=== PATIENT | female | born 1935 | race Caucasian/White ===

== ENCOUNTER 2017-11-03 11:08 | Inpatient (IN) | payer MEDICARE, OTHER ==
--- NOTE | 2017-11-03 11:28 | ED Physician Documentation ---
History of Present Illness - Stated complaint Stated Complaint: SOA - Chief complaint Chief Complaint: Resp - Additonal information Additional information: hx from pt and family fairly vague hx she thinks she has COPD, maybe pulm fibrosis on dulera she has been soa for years, more so last 2 months, recently txed for bronchitis with keflex no fever no cough no chest pain he leg edema is not new and better than normal using her dulera more freq s relief Review of Systems Constitutional: denies: Fever, Chills Throat: denies: Sore throat Cardiac: denies: Chest pain / pressure Respiratory: reports: Dyspnea GI: denies: Abdominal Pain Musculoskeletal: reports: Extremity swelling Endocrine: denies: Easy bruising / bleeding Immunocompromised: denies: Immunocompromised PD PAST MEDICAL HISTORY - Present Medications Home Medications: Ambulatory Orders Medication Instructions Recorded Confirmed Furosemide 40 mg PO DAILY 11/03/17 11/03/17 Meloxicam 7.5 mg PO BID 11/03/17 11/03/17 Metoprolol Succinate 25 mg PO BID 11/03/17 11/03/17 Mometasone/Formoterol [Dulera 200 2 puffs INH BID 11/03/17 11/03/17 Mcg/5 Mcg Inhaler] Rosuvastatin Calcium 10 mg PO 2100 11/03/17 11/03/17 amLODIPine [Norvasc] 10 mg PO DAILY 11/03/17 11/03/17 - Allergies Allergies/Adverse Reactions: Allergies Allergy/AdvReac Type Severity Reaction Status Date / Time No Known Drug Allergies Allergy Verified 11/03/17 11:24 PD ED PE NORMAL - Vitals Vital signs reviewed: Yes (hypoxic) - General General: Alert and oriented X 3 - Cardiac Cardiac: RRR - Respiratory Respiratory: No respiratory distress, Other (coarse bilaterally) - Derm Derm: Normal color - Extremities Extremities: Other (hoa mild edema) Results - Vitals Vitals: Vital Signs - 24 hr 11/03/17 11/03/17 11/03/17 11:19 11:54 12:16 Temperature 36 C L Heart Rate 89 93 82 Respiratory 26 H 28 H 24 Rate Blood Pressure 154/86 H 154/86 H O2 Saturation 68 L 94 11/03/17 13:06 Temperature Heart Rate 101 H Respiratory 22 Rate Blood Pressure 164/80 H O2 Saturation 87 L Oxygen O2 Source Nasal cannula Oxygen Flow Rate 6 - EKG (time done) 1123 Rate: Rate (enter#) (94) Rhythm: NSR QRS: Poor R wave progression Ischemia: Q waves (inf and anterior), Non specific changes - Labs Labs: Laboratory Tests 11/03/17 11/03/17 11/03/17 11:46 11:46 11:46 WBC 14.7 H RBC 5.55 H Hgb 16.4 H Hct 49.1 H MCV 88.4 MCH 29.6 MCHC 33.4 RDW 16.0 H Plt Count 194 MPV 8.0 Neut # 12.5 H Lymph # 0.8 L [place] # 1.2 H Eos # 0.1 Baso # 0.1 Absolute Nucleated RBC 0.01 Nucleated RBC % 0.1 Sodium 137 Potassium 4.3 Chloride 104 Carbon Dioxide 20 L Anion Gap 13.0 BUN 17 Creatinine 1.2 H Estimated GFR (MDRD) 43 L Glucose 99 Calcium 8.9 Total Bilirubin 1.0 AST 19 ALT 18 Alkaline Phosphatase 56 Troponin I < 0.04 B-Natriuretic Peptide Total Protein 7.5 Albumin 3.7 Globulin 3.8 Albumin/Globulin Ratio 1.0 Lipase 14 L 11/03/17 12:15 WBC RBC Hgb Hct MCV MCH MCHC RDW Plt Count MPV Neut # Lymph # [place] # Eos # Baso # Absolute Nucleated RBC Nucleated RBC % Sodium Potassium Chloride Carbon Dioxide Anion Gap BUN Creatinine Estimated GFR (MDRD) Glucose Calcium Total Bilirubin AST ALT Alkaline Phosphatase Troponin I B-Natriuretic Peptide 161 H Total Protein Albumin Globulin Albumin/Globulin Ratio Lipase - Rads (name of study) CXR Radiology: See rad report (chronic lung dz / fibrosis) PD MEDICAL DECISION MAKING - ED course ED course: pt vague about her Pmhx so requested records from [facility]D ioffice at 1130 Am - still waiting for records at 1 PM in any case pt is profoundly hypoxic despite nebs and so will need admit CXR shows fibrosis no pna, minimal BNP PE could be a consideration but GFR too low for CTA and CXR too abn at baseline for VQ scan - perhaps can get echo looking for right heart strain addendum - received records from [facility]D after admit - Pmhx COPD, sys HTN, arthropathy, abd aorta arterial thrombosis, nicotine dependence, pulm fibrosis, renal insuff, vit D def and her meds are crestor, leoxicam, amlodopine, lasix, dulera and metoprolol Departure - Departure Disposition: 66 [facility] DC/Xfer Clinical Impression: Hypoxia Condition: Fair Discharge Date/Time: 11/03/17 14:17
[2017-11-03] MEDS ORDERED: methylPREDNISolone SUCCINATE 125 MG/2 ML VIAL IVP STA (11:33)
[2017-11-03] MEDS ORDERED: ALBUTEROL NEB 2.5 MG/3 ML INH STA (11:33)
[2017-11-03 11:54] LABS: BASOPHILS # (AUTO) 0.1 10^3/uL (0.0-0.1); BASOPHILS % (AUTO) 0.6 %; EOSINOPHILS # (AUTO) 0.1 10^3/uL (0.0-0.7); EOSINOPHILS % (AUTO) 0.8 %; HGB - HEMOGLOBIN 16.4 g/dL (12.0-16.0); LYMPHOCYTES # (AUTO) 0.8 10^3/uL (1.5-3.5); LYMPHOCYTES % (AUTO) 5.1 %; MEAN CORPUSCULAR HEMOGLOBIN 29.6 pg (27.0-31.0); MEAN CORPUSCULAR HGB CONC 33.4 g/dL (32.0-36.0); MEAN CORPUSCULAR VOLUME 88.4 fL (81.0-99.0); MONOCYTES # (AUTO) 1.2 10^3/uL (0.0-1.0); MONOCYTES % (AUTO) 8.2 %; NEUTROPHILS # (AUTO) 12.5 10^3/uL (1.5-6.6); NEUTROPHILS % (AUTO) 85.3 %; PLT - PLATELET COUNT 194 10^3/uL (130-450); RED BLOOD COUNT 5.55 10^6/uL (4.20-5.40); WHITE BLOOD COUNT 14.7 x10^3/uL (4.8-10.8)
--- NOTE | 2017-11-03 11:57 | XRAY Report ---
EXAM: CHEST RADIOGRAPHY EXAM DATE: 11/03/2017 11:37 AM. CLINICAL HISTORY: Altered mental status. COMPARISON: 01/25/2016. TECHNIQUE: 1 view. FINDINGS: Lungs/Pleura: Low lung volumes with chronic diffuse interstitial prominence. Similar mildly elevated right hemidiaphragm compatible with eventration. No segmental consolidation or obvious vascular conge stion. No pneumothorax or pleural effusion. Mediastinum: Grossly stable tortuous calcified aorta and borderline heart size. Other: No acute fracture evident. IMPRESSION: 1. Consistent with chronic lung disease/fibrosis. 2. Stable borderline heart size and senescent aorta. [facility] Referring Provider Line: [phone] SITE ID: [id number]
[2017-11-03 12:06] LABS: ALBUMIN 3.7 g/dL (3.2-5.5); CALCIUM 8.9 mg/dL (8.5-10.3); CREATININE 1.2 mg/dL (0.4-1.0); TOTAL PROTEIN 7.5 g/dL (6.7-8.2)
[2017-11-03] MEDS ORDERED: PROCHLORPERAZINE 10 MG/2 ML VIAL IVP PRN (13:16)
[2017-11-03] MEDS ORDERED: oxyCODONE 5 MG TABLET PO PRN (13:16)
[2017-11-03] MEDS ORDERED: TEMAZEPAM 15 MG CAPSULE PO PRN (13:16)
[2017-11-03] MEDS ORDERED: SODIUM CHLORIDE FLUSH 0.9% 10 ML SYRINGE IVP PRN (13:16)
--- NOTE | 2017-11-03 14:05 | HISTORY & PHYSICAL EXAMINATION ---
Chief Complaint - Chief Complaint Chief Complaint: Shortness of breath History of Present Illness - Admitted From Admitted From:: Home - History Obtained From Records Reviewed: yes History obtained from: patient, Dr. Dobbins Exam Limitations: patient has poor short and skilled nursing memory - History of Present Illness HPI Comment/Other: Mrs. Claribel Kothari is a very pleasant 82-year-old female with a history of COPD who has been having increasing shortness of breath over the last several months. This is worsened especially over the last week until today she felt like she needed to come into the emergency department because of difficulty breathing. Upon presentation in the emergency department at [facility] she is found to have an oxygen saturation of 69% on room air. She was given multiple doses of bronchodilators and steroids as well as supplemental oxygen however at this time she is still oxygen dependent and so she will be admitted to the hospital. History - Past Medical History Cardiovascular: reports: Hypertension, High cholesterol Respiratory: reports: COPD, Shortness of breath - Past Surgical History /[employer]: reports: Hysterectomy - Family & Social History Family History: Mother: , COPD/Emphysema, Father: , Alzheimer's Disease, Sister: Living arrangement: At home Living Situation: With family Social History Notes: The patient's son and his family live with the patient in her home. - Substance History Use: Uses substance without health or social issues: NONE Abuse: Recurrent use of substance despite neg consequences: NONE Dependence: Experiences withdrawal or developed tolerances: NONE Tobacco Details: Cigarettes, Other (The patient admits to smoking "3 puffs from a cigarette 2 times a day") - POLST Patient has POLST: No POLST Status: DNR (Patient wishes to do advanced care planning when her daughter arrives later today.) Meds/Allgy - Home Medications Home Medications: Ambulatory Orders Medication Instructions Recorded Confirmed Furosemide 40 mg PO DAILY 11/03/17 11/03/17 Meloxicam 7.5 mg PO BID 11/03/17 11/03/17 Metoprolol Succinate 25 mg PO BID 11/03/17 11/03/17 Mometasone/Formoterol [Dulera 200 2 puffs INH BID 11/03/17 11/03/17 Mcg/5 Mcg Inhaler] Rosuvastatin Calcium 10 mg PO 2100 11/03/17 11/03/17 amLODIPine [Norvasc] 10 mg PO DAILY 11/03/17 11/03/17 - Allergies Allergies/Adverse Reactions: Allergies Allergy/AdvReac Type Severity Reaction Status Date / Time No Known Drug Allergies Allergy Verified 11/03/17 11:24 Review of Systems - Constitutional Constitutional: reports: Fatigue, Weakness. denies: Fever, Chills, Night sweats - Eyes Eyes: denies: Pain, Irritation, Blurred vision, Dipolpia - Ears, Nose & Throat Ears, Nose & Throat: denies: Ear pain, Hearing loss, Tinnitus, Vertigo, Nasal discharge, Nosebleeds - Cardiovascular Cariovascular: denies: Palpitations, Chest pain, Edema, Syncope - Respiratory Respiratory: reports: SOB at rest, SOB with exertion. denies: Wheezing, Hemoptysis - Gastrointestinal Gastrointestinal: denies: Abdominal pain, Abdominal distention, Constipation, Diarrhea, Rectal bleeding - Genitourinary Genitourinary: denies: Dysuria, Frequency, Urgency, Hematuria - Musculoskeletal Musculoskeletal: reports: Stiffness. denies: Muscle pain, Gout, Joint swelling - Integumentary Integumentary: denies: Rash, Pruritis, Lesions, Pigment changes - Neurological Neurological: reports: Memory problems. denies: General weakness, Focal weakness, Headache, Dizziness, Seizures, Slurred speech - Psychiatric Psychiatric: denies: Depression, Anxiety, Suicidal, Hallucinations - Endocrine Endocrine: denies: Polyuria, Polydypsia, Polyphagia - Hematologic/Lymphatic Hematologic/Lymphatic: denies: Anemia, Bruising, Petechiae, Lymphadenopathy - All Other Systems All Other Systems: reports: Reviewed and negative Exam - Vital Signs Reviewed Vital Signs: Yes Vital Signs: Vital Signs x48h Temp Pulse Resp BP Pulse Ox 11/03/17 13:32 92 11/03/17 13:06 101 H 22 164/80 H 87 L 11/03/17 12:16 82 24 11/03/17 11:54 93 28 H 154/86 H 94 11/03/17 11:19 36 C L 89 26 H 154/86 H 68 L - Physical Exam General Appearance: positive: No acute distress, Alert Eyes Bilateral: positive: Normal inspection, PERRL, EOMI, No lid inflammation, Conjunctivae nml, No scleral icterus ENT: positive: ENT inspection nml, Pharynx nml, No signs of dehydration Neck: positive: Nml inspection, Thyroid nml, No JVD, Trachea midline. negative : Thyromegaly Respiratory: positive: Chest non-tender, No respiratory distress, Rales, Other ( lung sounds diminished all dodd). negative: Wheezes, Rhonchi Cardiovascular: positive: Regular rate & rhythm, No murmur, No gallop Peripheral Pulses: positive: 1+ Abdomen: positive: Non-tender, No organomegaly, Nml bowel sounds, No distention. negative: Guarding, Rebound Back: positive: Nml inspection. negative: CVA tenderness (R), CVA tenderness (L ) Skin: positive: Color nml, No rash, Warm, Dry. negative: Cyanosis Extremities: positive: Non-tender, Full ROM, Nml appearance, No pedal edema Neurologic/Psychiatric: positive: Oriented x3, CN's nml (2-12), Motor nml, Sensation nml, Mood/affect nml. negative: Facial droop, Slurred/abnml speech Conclusion/Plan - Problem List (1) Acute exacerbation of chronic obstructive pulmonary disease (COPD) Conclusion/Plan: The patient is hypoxic and oxygen dependent at this time. She typically does not wear oxygen at home. We will admit her to the medical floor and start her on Levaquin, prednisone, DuoNeb, and supplemental oxygen. We will restart her home medications, and check the last 2 in the series of troponins as well as a BNP. (2) History of congestive heart failure Conclusion/Plan: The patient the patient takes Lasix 40 mg daily at home. We will continue while here in the hospital. (3) Hypertension Conclusion/Plan: We will continue the patient on her amlodipine, metoprolol, and furosemide. Blood pressure well-managed at this time. Qualifiers: Hypertension type: essential hypertension Qualified Code(s): I10 - Essential (primary) hypertension (4) Dyslipidemia Conclusion/Plan: We will continue the patient on her rosuvastatin. - Lab Results Fish Bones: 11/03/17 11:46 11/03/17 11:46 - Diagnostic Imaging Results Diagnostic Imaging Results: positive: Final report reviewed Diagnostic Imaging Results Comments: EXAM: CHEST RADIOGRAPHY EXAM DATE: 11/03/2017 11:37 AM. CLINICAL HISTORY: Altered mental status. COMPARISON: 01/25/2016. TECHNIQUE: 1 view. FINDINGS: Lungs/Pleura: Low lung volumes with chronic diffuse interstitial prominence. Similar mildly elevated right hemidiaphragm compatible with eventration. No segmental consolidation or obvious vascular congestion. No pneumothorax or pleural effusion. Mediastinum: Grossly stable tortuous calcified aorta and borderline heart size. Other: No acute fracture evident. IMPRESSION: 1. Consistent with chronic lung disease/fibrosis. 2. Stable borderline heart size and senescent aorta. - EKG Results EKG Interpreted Independently: Yes EKG Comparison: No prior EKG Core Measures - Anticipated LOS I expect patient to be DC'd or transferred within 96 hours.: Yes - DVT/VTE - Prophylaxis VTE/DVT Device ordered at admit?: Yes
[2017-11-03] MEDS: D5.45NS W/20 MEQ KCL 1,000 ML IV SCH (14:23)
[2017-11-03] MEDS: SODIUM CHLORIDE FLUSH 0.9% 10 ML SYRINGE IVP SCH ×2 (14:23→20:54)
[2017-11-03] MEDS: levoFLOXacin 750 MG/150 ML 750 MG/150 ML BAG IV SCH (15:50)
[2017-11-03] MEDS: MELOXICAM 7.5 MG TABLET PO SCH (20:53)
[2017-11-03] MEDS: ATORVASTATIN 10 MG TABLET PO SCH (20:53)
[2017-11-03] MEDS: METOPROLOL SUCCINATE 25 MG TABLET PO SCH (20:54)
[2017-11-03] MEDS: DULERA INH SCH (20:54)
[2017-11-04] MEDS: D5.45NS W/20 MEQ KCL 1,000 ML IV SCH ×2 (02:06→13:32)
[2017-11-04] MEDS: SODIUM CHLORIDE FLUSH 0.9% 10 ML SYRINGE IVP SCH ×3 (05:34→21:40)
[2017-11-04 05:58] LABS: HGB - HEMOGLOBIN 14.2 g/dL (12.0-16.0); MEAN CORPUSCULAR HEMOGLOBIN 28.7 pg (27.0-31.0); MEAN CORPUSCULAR HGB CONC 32.3 g/dL (32.0-36.0); RED BLOOD COUNT 4.94 10^6/uL (4.20-5.40); WHITE BLOOD COUNT 11.1 x10^3/uL (4.8-10.8)
[2017-11-04 06:06] LABS: CALCIUM 8.5 mg/dL (8.5-10.3); CREATININE 1.1 mg/dL (0.4-1.0)
[2017-11-04] MEDS: predniSONE 20 MG TABLET PO SCH (08:55)
[2017-11-04] MEDS: POLYETHYLENE GLYCOL 3350 17 GM PACKET PO SCH (08:55)
[2017-11-04] MEDS: amLODIPine 5 MG TABLET PO SCH (08:56)
[2017-11-04] MEDS: METOPROLOL SUCCINATE 25 MG TABLET PO SCH (08:57)
[2017-11-04] MEDS: DULERA INH SCH ×2 (08:58→21:59)
[2017-11-04] MEDS ORDERED: FUROSEMIDE 20 MG TABLET PO SCH (09:00)
[2017-11-04] MEDS: MELOXICAM 7.5 MG TABLET PO SCH ×2 (09:10→21:04)
[2017-11-04] MEDS: IPRATROPIUM/ALBUTEROL 3 ML NEB INH PRN ×2 (10:41→15:27)
--- NOTE | 2017-11-04 10:57 | PROVIDER PROGRESS NOTE ---
Subjective - Prog Note Date Prog Note Date: 11/04/17 Prog Note Time: 09:00 - Subjective Pt reports feeling: Improved (Patient says she feels a little bit better and slept well last night. She still very short of breath. She denies any pain or new problems.She ate her breakfast today but has not yet moved her bowels.) Current Medications - Current Medications Current Medications: Amlodipine, atorvastatin, D5 half-normal saline, Lasix, DuoNeb, Levaquin, Mobic , metoprolol, oxycodone, polyethylene glycol, prednisone, Compazine, sodium chloride, temazepam Objective - Vital Signs/Intake & Output Reviewed Vital Signs: Yes Vital Signs: Vital Signs x48h Temp Pulse Pulse Resp BP Pulse Ox 11/04/17 10:48 84 20 11/04/17 08:00 36.6 C 77 34 H 152/63 H 93 Intake & Output: Intake & Output 11/01/17 11/02/17 11/03/17 11/04/17 23:59 23:59 23:59 23:59 Intake Total 710 1486.667 Output Total 225 200 Balance 485 1286.667 - Objective General Appearance: positive: No acute distress, Alert Eyes Bilateral: positive: Normal inspection, PERRL, EOMI, No lid inflammation, Conjunctivae nml, No scleral icterus ENT: positive: ENT inspection nml, Pharynx nml, No signs of dehydration Neck: positive: Nml inspection, Thyroid nml, No JVD, Trachea midline. negative : Thyromegaly Respiratory: positive: Chest non-tender, No respiratory distress, Breath sounds nml. negative: Wheezes, Rales, Rhonchi Cardiovascular: positive: Regular rate & rhythm, No murmur, No gallop Abdomen: positive: Non-tender, No organomegaly, Nml bowel sounds, No distention. negative: Guarding, Rebound Back: positive: Nml inspection. negative: CVA tenderness (R), CVA tenderness (L ) Skin: positive: No rash, Warm, Dry, Pallor. negative: Cyanosis Extremities: positive: Non-tender, Full ROM, Nml appearance, No pedal edema Neurologic/Psychiatric: positive: Oriented x3, CN's nml (2-12), Motor nml, Sensation nml, Mood/affect nml - Lab Results Fish Bones: 02/20/18 05:45 11/04/17 05:45 Other Labs: Lab Results x24hrs 11/04/17 11/04/17 11/04/17 Range/Units 05:45 05:45 05:45 WBC 11.1 H (4.8-10.8) x10^3/uL RBC 4.94 (4.20-5.40) 10^6/uL Hgb 14.2 (12.0-16.0) g/dL Hct 44.0 (37.0-47.0) % MCV 89.0 (81.0-99.0) fL MCH 28.7 (27.0-31.0) pg MCHC 32.3 (32.0-36.0) g/dL RDW 16.0 H (12.0-15.0) % Plt Count 176 (130-450) 10^3/uL MPV 8.0 (7.9-10.8) fL Sodium 135 (135-145) mmol/L Potassium 4.8 (3.5-5.0) mmol/L Chloride 108 (101-111) mmol/L Carbon Dioxide 20 L (21-32) mmol/L Anion Gap 7.0 (6-13) BUN 21 H (6-20) mg/dL Creatinine 1.1 H (0.4-1.0) mg/dL Estimated GFR (MDRD) 48 L (>89) Glucose 153 H (70-100) mg/dL Calcium 8.5 (8.5-10.3) mg/dL Troponin I (<0.49) ng/mL B-Natriuretic Peptide 187 H (5-100) pg/mL 11/03/17 11/03/17 Range/Units 23:46 17:45 WBC (4.8-10.8) x10^3/uL RBC (4.20-5.40) 10^6/uL Hgb (12.0-16.0) g/dL Hct (37.0-47.0) % MCV (81.0-99.0) fL MCH (27.0-31.0) pg MCHC (32.0-36.0) g/dL RDW (12.0-15.0) % Plt Count (130-450) 10^3/uL MPV (7.9-10.8) fL Sodium (135-145) mmol/L Potassium (3.5-5.0) mmol/L Chloride (101-111) mmol/L Carbon Dioxide (21-32) mmol/L Anion Gap (6-13) BUN (6-20) mg/dL Creatinine (0.4-1.0) mg/dL Estimated GFR (MDRD) (>89) Glucose (70-100) mg/dL Calcium (8.5-10.3) mg/dL Troponin I < 0.04 < 0.04 (<0.49) ng/mL B-Natriuretic Peptide (5-100) pg/mL Assessment/Plan - Problem List (1) Acute exacerbation of chronic obstructive pulmonary disease (COPD) Impression: The patient's oxygen saturation has increased from yesterday however she still is oxygen dependent at this time. We will continue with the bronchodilators and steroids as well as supplemental oxygen. The patient may need to go home on supplemental oxygen. (2) History of congestive heart failure Impression: The patient's BNP is very slightly elevated. We will continue to monitor. Troponin I was negative 3. (3) Hypertension Impression: The patient's blood pressure is elevated despite being on amlodipine, Lasix, and metoprolol. I will add lisinopril. Qualifiers: Hypertension type: essential hypertension Qualified Code(s): I10 - Essential (primary) hypertension (4) Dyslipidemia Impression: Continue atorvastatin
[2017-11-04] MEDS ORDERED: METOPROLOL SUCCINATE 25 MG TABLET PO SCH (11:00)
[2017-11-04] MEDS ORDERED: LISINOPRIL 20 MG TABLET PO SCH (12:00)
[2017-11-04] MEDS: levoFLOXacin 750 MG/150 ML 750 MG/150 ML BAG IV SCH (15:33)
[2017-11-04] MEDS: guaiFENesin 600 MG TABLET PO SCH ×2 (15:55→21:04)
--- NOTE | 2017-11-04 17:35 | CONSULTATION NOTE ---
Palliative Care Consultation - Referral Referring Provider: Dr. Annie Victoria Time of Visit: [id number] Referral setting: Hospitalized patient Referral Reason: Advanced COPD/Goals of Care - Information Sources Records reviewed: Previous records reviewed History/Review of Systems obtained from: Patient, Family (spoke at length with daughter Jamilah Cordero to round out ROS) Exam limitations: Clinical condition (patient with STM deficits) - History of Present Illness Brief History of Present Illness: This is an 82-year-old woman with a history of advanced COPD, who presented on with an acute exacerbation of her chronic obstructive pulmonary disease and was admitted to [facility]. She has not had any previous hospitalizations, has been managed on Dulera, but does report a history of severe and progressive shortness of breath. Patient herself has difficulty quantifying or remembering , her ongoing decline. I did review with her daughter Jamilah, she has had increasing cognitive decline, which is exacerbated with the of her daughter in July 2017. Her functional status is limited at baseline, she has long-term been fairly an active, but wheelchair bound other than transfers and short distances to the bathroom, for about 5 years, but this is become more severe in the last several months. They had attempted to set up hospital bed and equipment, but she prefers to sit on the [place] and upright. She is quite anxious about "not being able to breathe", presents today with a rolling cough scattered rhonchi and fine crackles bilaterally as well as diminished breath sounds throughout. Does not carry a diagnosis of congestive heart failure, but presents with elevated BNP. She does not have any pulmonary function tests, is not been managed by a specialist, she is seeing her primary care physician Dr. Chaudhary for a couple decades. He does perceive herself as becoming more dependent, very much wants to return back home, she is a very supportive family but at this point in time is home by herself for several hours. She has not been oxygen dependent up to this episode, but very limited by her disease process Medical/Surgical History - Past Medical History Cardiovascular: reports: Hypertension, High cholesterol Respiratory: reports: COPD, Shortness of breath Neuro: reports: None, Other (increased neurocognitive decline) GI: reports: Hemorrhoids : reports: Incontinence HEENT: reports: Chronic vision loss Psych: reports: Depression, Anxiety Musculoskeletal: reports: Rheumatoid arthritis, Fatigue, Chronic back pain Derm: reports: None MRSA Hx?: No Other Past Medical History: rhuemathoid arthritis; "weak bladder and weak kidneys" - 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 Her daughter Jamilah checks on her at least daily, but patient is alone for several hours. She recently lost her daughter, who is 52 and her youngest, about 2 months ago. She had 7 children total. Her daughter Jamilah and son Liu are whom she defaults to for decision making) Family History - Family History Family History: Mother: (daughter 2 months ago), COPD/Emphysema, Father: , Alzheimer's Disease ( at 79), COPD/Emphysema, Sister: , Other family: Medications/Allergies - Medications Active Medication List: Active Medications Albuterol/Ipratropium (Duoneb) 3 ml INH Q4HR PRN PRN Reason: Wheezing Last Admin: 11/04/17 15:27 Dose: 3 ml Amlodipine Besylate (Norvasc) 10 mg PO DAILY [facility] Last Admin: 11/04/17 08:56 Dose: 10 mg Atorvastatin Calcium (Lipitor) 20 mg PO 2100 [facility] Last Admin: 11/03/17 20:53 Dose: 20 mg Furosemide (Lasix) 40 mg PO DAILY [facility] Guaifenesin (Mucinex) 600 mg PO BID [facility] Last Admin: 11/04/17 15:55 Dose: 600 mg Potassium Chloride/Dextrose/Sod Cl (D5.45ns W/20 Meq Kcl) 1,000 mls @ 100 mls/ hr IV .Q10H [facility] Last Admin: 11/04/17 13:32 Dose: 100 mls/hr Levofloxacin (Levaquin 750 Mg/150 Ml) 750 mg in 150 mls @ 100 mls/hr IV Q24H [facility] Last Infusion: 11/04/17 17:06 Dose: Infused Lisinopril (Zestril) 20 mg PO DAILY [facility] Last Admin: 11/04/17 13:33 Dose: 20 mg Meloxicam (Mobic) 7.5 mg PO BID [facility] Last Admin: 11/04/17 09:10 Dose: 7.5 mg Metoprolol Succinate (Toprol Xl) 50 mg PO BID [facility] Oxycodone HCl (Roxicodone) 5 mg PO Q4HR PRN PRN Reason: Pain 5 to 7 Dulera 2 each INH BID [facility] Last Admin: 11/04/17 08:58 Dose: 2 each Polyethylene Glycol (Miralax) 17 gm PO DAILY [facility] Last Admin: 11/04/17 08:55 Dose: 17 gm Prednisone (Deltasone) 40 mg PO DAILY [facility] Last Admin: 11/04/17 08:55 Dose: 40 mg Prochlorperazine Edisylate (Compazine Inj) 10 mg IVP Q6HR PRN PRN Reason: Nausea / Vomiting Sodium Chloride (Normal Saline Flush 0.9%) 10 ml IVP PRN PRN PRN Reason: NEEDED PER PROVIDER ORDERS Sodium Chloride (Normal Saline Flush 0.9%) 10 ml IVP Q8HR [facility] Last Admin: 11/04/17 13:36 Dose: Not Given Temazepam (Restoril) 15 mg PO QPM PRN PRN Reason: Insomnia Last Admin: 11/04/17 01:19 Dose: 15 mg Furosemide 40 mg PO DAILY 11/03/17 Meloxicam 7.5 mg PO BID 11/03/17 Metoprolol Succinate 25 mg PO BID 11/03/17 Mometasone/Formoterol [Dulera 200 Mcg/5 Mcg Inhaler] 2 puffs INH BID 11/03/17 Rosuvastatin Calcium 10 mg PO 2100 11/03/17 amLODIPine [Norvasc] 10 mg PO DAILY 11/03/17 - Allergies Allergies/Adverse Reactions: Allergies Allergy/AdvReac Type Severity Reaction Status Date / Time No Known Drug Allergies Allergy Verified 11/03/17 11:24 Review of Systems - Constitutional Constitutional: reports: Fatigue, Malaise, Weakness - Eyes Eyes: reports: Vision loss, Corrective lenses - Ears, Nose & Throat Ears, Nose & Throat: reports: Hearing loss, Nasal congestion, Dry mouth - Cardiovascular Cardiovascular: reports: Edema (history of LE edema), Exertional dyspnea, Decr. exercise tolerance - Respiratory Respiratory: reports: Cough, Sputum production, Wheezing, SOB at rest, SOB with exertion - Gastrointestinal Gastrointestinal: reports: Early satiety. denies: Constipation, Nausea, Reflux/ heartburn - Genitourinary Genitourinary: reports: Incontinence - Musculoskeletal Musculoskeletal: reports: Back pain, Stiffness, Limited range of motion, Muscle weakness (has been limited as far as activity for over 20 years; attributed to arthritis;wheelchair bound for about 5 years; and housebound/"bedbound" for several months now. Amb with great effort to BR one time a day) - Integumentary Integumentary: reports: Dryness, Other (rarely bathes; bedbath secondary to dyspnea/weakness) - Neurological Neurological: reports: General weakness, Memory problems (daughter has noted cognitive decline the last several months;) - Psychiatric Psychiatric: reports: Depression, Anxiety (distressed at breathlessness; increases anxiety) - Hematologic/Lymphatic Hematologic/Lymphatic: reports: Recurrent infections (recently treated for bronchitis) - All Other Systems All Other Systems: reports: Reviewed and negative Physical Exam - Vital Signs Vital Signs: Vital Signs x48h Temp Pulse Pulse Pulse Pulse Resp BP 11/04/17 16:15 36.5 C 75 15 11/04/17 15:28 76 22 11/04/17 13:55 75 73 117/50 L 11/04/17 13:36 11/04/17 10:48 84 20 BP BP Pulse Ox 11/04/17 16:15 132/60 H 96 11/04/17 15:28 11/04/17 13:55 132/46 H 11/04/17 13:36 134/62 H 11/04/17 10:48 - Physical Exam General Appearance: positive: Moderate distress, Anxious (patient about ready to receive treatment on arrival;) Eyes Bilateral: positive: Conjunctivae nml, No scleral icterus ENT: positive: No signs of dehydration Neck: positive: Trachea midline, Stiff neck Cardiovascular: positive: Regular rate & rhythm, Tachycardia, Systolic murmur Respiratory: positive: Other (scattered rhonchi; crackles in bases; exp. wheezed ; some relief after neb but still baseline feeling SOB; admits this increases her anxiety; worse compared to her baseline but doesn recall had been worsening over last several weeks. Using some accessory muscles) Abdomen: positive: Soft, Nml bowel sounds Skin: positive: Pallor, Bruising (upper extremities with bruising from "sticks") Extremities: positive: No pedal edema, Other (laying in bed; not observed) Neurologic/Psychiatric: positive: Disoriented to time, Weakness, Depressed mood/ affect Palliative Care - POLST Patient has POLST: No Pain: Pain unchanged, Location (reports mid back/lumbar region; does not use medication other than meloxicam) Tiredness/Fatigue: Severe (7-10) Drowsiness/Sedation: Severe (7-10) Nausea: None Depression: Moderate (4-6) Anxiety: Moderate (4-6) Dyspnea: Severe (7-10) Anorexia: Mild (1-3) Sleep: Variable sleep pattern Constipation: No Feelings of wellbeing/Perceived Quality of Life: Poor, Worsening Performance Status: Patient has been bedbound since she has been hospitalized, has very limited activity tolerance, and poor bed mobility. - Palliative Care Discussion: Patient identifies her daughter Jamilah Cordero [phone] and Triston Kothari [phone] as surrogate decision makers.She is unclear if she has this documented and a durable power of health treer. We did discuss in the context of hospitalization, this is a chance to revisit and emphasizes the need for these decisions to be made and documented. Exploring her understanding of her current illness, she has very little insight into the seriousness of her illness and her most recent decline. I did introduce a conversation regarding goals of care , she admits they have not discussed this as a family, but feels like it would be helpful to have a conversation with Jamilah and Liu. She very much agrees the loss of her youngest daughter this last fall, reports that she raised her 7 children mostly alone. 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 Her goal is to return home, she is hoping for the best as far as returning back to baseline, though admits her quality of life has been declining fairly significantly. She has a granddaughter who works at [employer], but does not consider that as an option at this point, even short term. When asked patient what she worries about most, particularly around decline in dying, she said "going to hell". This was somewhat said in jest, as she reports her wily base is Catholicism, though she has not been able to attend anglican for years. She did agree that I could follow-up with Jamilah, regarding my concerns for a transition plan and support long-term. She presents as very passive, and defers to her daughter regarding decisions around goals of care. Spoke at length with daughter Jamilah Cordero, Patient is very homebound, but appreciate if we could facilitate completing the DPOAE form as far as being able to access the notary. Patient does have her will, and her plans all completed. She does express concerns about patient's decline, both cognitive and functional, and the reality of her being able to return to her previous arrangement. Did discuss in the context of safety, patient's current acute illness, she may be out of place needs more care and supervision. In reflecting over the last year, patient does appear depressed to daughter, compounded by the loss of her daughter with grief and loss, as well as ongoing dependence.Introduce the [facility], and the role has a community form, she would like to have a facilitated conversation. I did leave for her "hard choices for loving people "as well as a copy of the [facility] form. She will be visiting later. Results - Lab Results Lab results reviewed: Yes Fish Bones: 11/04/17 05:45 11/04/17 05:45 Lab and Imaging Results: Lab Results x24hrs 11/04/17 11/04/17 11/04/17 Range/Units 05:45 05:45 05:45 WBC 11.1 H (4.8-10.8) x10^3/uL RBC 4.94 (4.20-5.40) 10^6/uL Hgb 14.2 (12.0-16.0) g/dL Hct 44.0 (37.0-47.0) % MCV 89.0 (81.0-99.0) fL MCH 28.7 (27.0-31.0) pg MCHC 32.3 (32.0-36.0) g/dL RDW 16.0 H (12.0-15.0) % Plt Count 176 (130-450) 10^3/uL MPV 8.0 (7.9-10.8) fL Sodium 135 (135-145) mmol/L Potassium 4.8 (3.5-5.0) mmol/L Chloride 108 (101-111) mmol/L Carbon Dioxide 20 L (21-32) mmol/L Anion Gap 7.0 (6-13) BUN 21 H (6-20) mg/dL Creatinine 1.1 H (0.4-1.0) mg/dL Estimated GFR (MDRD) 48 L (>89) Glucose 153 H (70-100) mg/dL Calcium 8.5 (8.5-10.3) mg/dL Troponin I (<0.49) ng/mL B-Natriuretic Peptide 187 H (5-100) pg/mL 11/03/17 11/03/17 Range/Units 23:46 17:45 WBC (4.8-10.8) x10^3/uL RBC (4.20-5.40) 10^6/uL Hgb (12.0-16.0) g/dL Hct (37.0-47.0) % MCV (81.0-99.0) fL MCH (27.0-31.0) pg MCHC (32.0-36.0) g/dL RDW (12.0-15.0) % Plt Count (130-450) 10^3/uL MPV (7.9-10.8) fL Sodium (135-145) mmol/L Potassium (3.5-5.0) mmol/L Chloride (101-111) mmol/L Carbon Dioxide (21-32) mmol/L Anion Gap (6-13) BUN (6-20) mg/dL Creatinine (0.4-1.0) mg/dL Estimated GFR (MDRD) (>89) Glucose (70-100) mg/dL Calcium (8.5-10.3) mg/dL Troponin I < 0.04 < 0.04 (<0.49) ng/mL B-Natriuretic Peptide (5-100) pg/mL Impression and Recommendations - Palliative Care Impression: This is an 82-year-old woman with COPD, this is her first hospitalization for acute exacerbation, she has had increased cognitive and functional decline over the last several months. She does present with moderate to high symptom burden with fatigue, anxiety, depression and a decreased sense of well-being. Palliative care to provide support, establish rapport, and facilitate goals of care. Recommendations/Counseling Done: 1. Dyspnea. Patient presents with an acute exacerbation of her COPD, difficult to get sense of what her baseline has been. Though it does appear quite limiting, as well as reports dyspnea at rest previously to hospitalization, decreased tolerance for any kind of activity, but has only been using Dulera and has not been oxygen dependent. Given patient's homebound status, suspect follow-up with a lockstitch hemmer would be difficult, but most likely would benefit from Duonebs in the home setting, suspect will be oxygen dependent in transition to home, so we oxygen equipment and nebulizer will need to set up prior to discharge. She would also benefit in addition to this, home health nursing services for monitoring of recovery, instruction on disease process as has very little insight and understanding, as well as monitoring her recovery. May consider use of small doses of oral morphine to manage respiratory distress , this can be an effective tool, will need to evaluate at baseline. 2. Depressive symptoms. Patient would benefit from initiation of antidepressant , would recommend citalopram for both depressive symptoms and anti-anxiety attributes. 2. Advanced care planning. The patient presents with high symptom burden, and functional and cognitive decline, she has not had any weight loss, this is her first hospitalization, she has not been oxygen dependent prior to this hospitalization. Currently she would not meet the criteria for hospice, but qualifies for palliative care support particularly in the context of defining goals of care and addressing symptoms. Time Spent: 75 minutes with greater than 50% Of this done with counseling regarding disease process, eliciting goals of care, follow-up and coordination with daughter and concerns, and anticipatory guidance. Have set up follow-up tomorrow morning for meeting with patient and daughter 9:45, will contact Meme newton for DPOA.
[2017-11-04] MEDS: ATORVASTATIN 10 MG TABLET PO SCH (21:04)
[2017-11-05] MEDS: D5.45NS W/20 MEQ KCL 1,000 ML IV SCH (01:02)
[2017-11-05] MEDS: SODIUM CHLORIDE FLUSH 0.9% 10 ML SYRINGE IVP SCH ×3 (04:59→21:51)
[2017-11-05 05:54] LABS: HGB - HEMOGLOBIN 13.8 g/dL (12.0-16.0); MEAN CORPUSCULAR HEMOGLOBIN 28.9 pg (27.0-31.0); MEAN CORPUSCULAR HGB CONC 32.6 g/dL (32.0-36.0); MEAN CORPUSCULAR VOLUME 88.5 fL (81.0-99.0); MEAN PLATELET VOLUME 8.2 fL (7.9-10.8); RED BLOOD COUNT 4.77 10^6/uL (4.20-5.40); RED CELL DISTRIBUTION WIDTH 16.1 % (12.0-15.0); WHITE BLOOD COUNT 18.8 x10^3/uL (4.8-10.8)
[2017-11-05 05:58] LABS: CALCIUM 8.6 mg/dL (8.5-10.3); CREATININE 1.1 mg/dL (0.4-1.0)
[2017-11-05] MEDS: IPRATROPIUM/ALBUTEROL 3 ML NEB INH PRN (07:00)
[2017-11-05] MEDS ORDERED: FUROSEMIDE 40 MG TABLET PO SCH (09:00)
[2017-11-05] MEDS: amLODIPine 5 MG TABLET PO SCH (09:32)
[2017-11-05] MEDS: CITALOPRAM 10 MG TABLET PO SCH (09:33)
[2017-11-05] MEDS: MORPHINE ER 15 MG TABLET PO SCH ×2 (09:33→21:18)
[2017-11-05] MEDS: guaiFENesin 600 MG TABLET PO SCH ×2 (09:33→21:18)
[2017-11-05] MEDS: predniSONE 20 MG TABLET PO SCH (09:34)
[2017-11-05] MEDS: MELOXICAM 7.5 MG TABLET PO SCH ×2 (09:34→21:18)
[2017-11-05] MEDS: POLYETHYLENE GLYCOL 3350 17 GM PACKET PO SCH (09:34)
[2017-11-05] MEDS ORDERED: FUROSEMIDE 40 MG/4 ML VIAL IVP SCH (10:00)
[2017-11-05] MEDS: DULERA INH SCH ×3 (10:33→18:30)
--- NOTE | 2017-11-05 11:07 | XRAY Report ---
TWO VIEW CHEST: 11/05/2017 CLINICAL INDICATION: Shortness of breath. COMPARISON: 11/03/2017, 01/25/2016. FINDINGS: Frontal view of the chest demonstrates stable cardiomegaly. Fibrotic changes in the lungs appear stable. No definite new pulmonary vascular congestion, focal infiltrate, effusion, or pneumothorax is seen. IMPRESSION: STABLE CARDIOMEGALY AND FIBROSIS. NO SIGNIFICANT INTERVAL CHANGE FROM 11/03/2017. TD: 11/05/2017 11:07
--- NOTE | 2017-11-05 12:04 | CONSULTATION NOTE ---
Palliative Care Follow Up - Referral Referring Provider: Dr. Annie Victoria Time of Visit: [id number] Referral setting: Hospitalized patient Referral Reason: Advanced COPD/Goals of Care - Information Sources Records reviewed: RN notes reviewed, Previous records reviewed History/Review of Systems obtained from: Patient, Family (Daughter Jamilah Cordero ( DPOA) and JOSE ALBERTO Muniz at visit) Exam limitations: Clinical condition - History of Present Illness Update Brief HPI Update: This is a 82-year-old woman with a history of advanced COPD, who has been hospitalized since 11/03 with an acute exacerbation of her chronic obstructive pulmonary disease currently receiving antibiotic, nebulizers, and steroids support. She continues to be quite short of breath, with very poor energy, and continued nonproductive cough. She has been bedbound since admit, has chronic low back pain, presents with difficulty even with bed mobility. Family remains committed to taking her home at this time, hoping for some improvement, but recognizing her advanced age and fragility.The goal of today's visit, is to have a family conference and further define goals of care and complete the [facility] Social History - Living Situation Living arrangement: At home Living Situation: With family (She lives in her own home, her son Himanshu lives with her. Her daughter Jamilah and son Trisotn provide support, patient though has been at home for several hours by herself. She does present with increased needs and concerns regarding discharge planning) Medications/Allergies - Medications Active Medication List: Active Medications Albuterol/Ipratropium (Duoneb) 3 ml INH Q4HR PRN PRN Reason: Wheezing Last Admin: 11/05/17 07:00 Dose: 3 ml Amlodipine Besylate (Norvasc) 10 mg PO DAILY [facility] Last Admin: 11/05/17 09:32 Dose: 10 mg Atorvastatin Calcium (Lipitor) 20 mg PO 2100 [facility] Last Admin: 11/04/17 21:04 Dose: 20 mg Citalopram Hydrobromide (Celexa) 10 mg PO DAILY [facility] Last Admin: 11/05/17 09:33 Dose: 10 mg Furosemide (Lasix Inj 40 Mg Vial) 40 mg IVP DAILY [facility] Last Admin: 11/05/17 09:34 Dose: 40 mg Guaifenesin (Mucinex) 600 mg PO BID [facility] Last Admin: 11/05/17 09:33 Dose: 600 mg Levofloxacin (Levaquin 750 Mg/150 Ml) 750 mg in 150 mls @ 100 mls/hr IV Q24H [facility] Last Infusion: 11/04/17 17:06 Dose: Infused Meloxicam (Mobic) 7.5 mg PO BID [facility] Last Admin: 11/05/17 09:34 Dose: 7.5 mg Metoprolol Succinate (Toprol Xl) 25 mg PO BID [facility] Morphine Sulfate () 15 mg PO BID [facility] Last Admin: 11/05/17 09:33 Dose: 15 mg Oxycodone HCl (Roxicodone) 5 mg PO Q4HR PRN PRN Reason: Pain 5 to 7 Dulera 2 each INH RTBID [facility] Last Admin: 11/05/17 11:43 Dose: 2 each Polyethylene Glycol (Miralax) 17 gm PO DAILY [facility] Last Admin: 11/05/17 09:34 Dose: 17 gm Prednisone (Deltasone) 40 mg PO DAILY [facility] Last Admin: 11/05/17 09:34 Dose: 40 mg Prochlorperazine Edisylate (Compazine Inj) 10 mg IVP Q6HR PRN PRN Reason: Nausea / Vomiting Sodium Chloride (Normal Saline Flush 0.9%) 10 ml IVP PRN PRN PRN Reason: NEEDED PER PROVIDER ORDERS Sodium Chloride (Normal Saline Flush 0.9%) 10 ml IVP Q8HR [facility] Last Admin: 11/05/17 04:59 Dose: Not Given Temazepam (Restoril) 15 mg PO QPM PRN PRN Reason: Insomnia Last Admin: 11/04/17 01:19 Dose: 15 mg Furosemide 40 mg PO DAILY 11/03/17 Meloxicam 7.5 mg PO BID 11/03/17 Metoprolol Succinate 25 mg PO BID 11/03/17 Mometasone/Formoterol [Dulera 200 Mcg/5 Mcg Inhaler] 2 puffs INH BID 11/03/17 Rosuvastatin Calcium 10 mg PO 2100 11/03/17 amLODIPine [Norvasc] 10 mg PO DAILY 11/03/17 - Allergies Allergies/Adverse Reactions: Allergies Allergy/AdvReac Type Severity Reaction Status Date / Time No Known Drug Allergies Allergy Verified 11/03/17 11:24 Review of Systems - Constitutional Constitutional: reports: Fatigue, Weakness, Poor appetite - Eyes Eyes: reports: Vision loss, Corrective lenses - Ears, Nose & Throat Ears, Nose & Throat: reports: Hearing loss, Dry mouth - Cardiovascular Cardiovascular: reports: Exertional dyspnea, Decr. exercise tolerance - Respiratory Respiratory: reports: Cough (nonproductive; chronic in nature), SOB at rest, SOB with exertion - Gastrointestinal Gastrointestinal: reports: Early satiety - Genitourinary Genitourinary: reports: Incontinence - Musculoskeletal Musculoskeletal: reports: Back pain, Stiffness, Limited range of motion, Muscle weakness - Integumentary Integumentary: reports: Dryness - Neurological Neurological: reports: General weakness, Memory problems - Psychiatric Psychiatric: reports: Depression, Anxiety - All Other Systems All Other Systems: reports: Reviewed and negative Physical Exam - Vital Signs Vital Signs: Vital Signs x48h Temp Pulse Pulse Resp BP Pulse Ox 11/05/17 11:51 66 20 11/05/17 08:00 36.3 C L 65 33 H 119/59 L 94 11/05/17 07:00 78 20 - Physical Exam General Appearance: positive: Mild distress Eyes Bilateral: positive: Conjunctivae nml ENT: positive: ENT inspection nml Neck: positive: No JVD, Trachea midline Cardiovascular: positive: Regular rate & rhythm Respiratory: positive: Rales (bilateral crackles in bases; scattered rhonchi clear with coughing/nebs) Abdomen: positive: Soft, Nml bowel sounds Skin: positive: Pallor, Dryness, Bruising Extremities: positive: No pedal edema, Other (bedbound) Neurologic/Psychiatric: positive: Disoriented to time, Weakness, Depressed mood/ affect, Flat affect Palliative Care - POLST Patient has POLST: Yes POLST Status: DNR, Selective Treatment (completed POLST with family meeting) Pain: Pain unchanged, Location (lower back;) Tiredness/Fatigue: Severe (7-10) Drowsiness/Sedation: Moderate (4-6) Nausea: None Depression: Moderate (4-6) Anxiety: Moderate (4-6) Dyspnea: Moderate (4-6) Anorexia: Moderate (4-6) Sleep: Variable sleep pattern Constipation: No - Palliative Care Discussion: Met with patient daughter to begin discussion. Reports patient has been doing poorly over this last year, and was exacerbated by the of her daughter in July. Patient has been mostly wheelchair/couch bound, is with significant difficulty for her to get out for an appointment up to hospitalization. She recognizes the seriousness of the illness, and acknowledges her mother's cognitive and functional decline which over the last few weeks has worsened. They were able to find her medical DURABLE POWER OF MANAGER STRATEGIC PARTNERSHIPS, copies were taken for the chart, it does appoint her son Triston Maldonado and her daughter Jamilah Neal as co-attorneys in fact, with Simon Kothari as backup, it also includes a directives that does focus mostly on comfort measures that include DNI and wish to at home. This is in the context of course a diagnosis of a terminal condition or permanent unconscious condition, but we did extend our conversation to her current situation. Her daughter feels quite supportive of patient's focus of not wanting to be resuscitated, she reports this is been shared with her more than once, as well as not going to [facility], and wishing for a at home. I did explain to the daughter, patient has had decline, most likely will better be able to discern if patient's decline continues if she is hospice eligible, currently this is her first hospitalization, and she has not been oxygen dependent, and unclear how much improvement she will have with the treatment focused on her acute exacerbation currently. Spoke at length both with daughter previous to our conversation and then with conversation with patient. Patient does defer to her daughter quite frequently for decision-making, but we did include her in the conversation. At this point she is a DNA R/allow natural , we did discuss given this is her first hospitalization and an unknown outcome, that we would at this point look at selected treatments versus comfort measures. Current goal is to maximize treatment and hoping for the best, but with a discharge home. Selected treatment on the POLS allows patient if she were at home transfer to the hospital if she would like, or she can weigh benefits of burdens depending on the situation. This can be updated at the point that she wants to focus on comfort measures only. Patient did sign the [facility]ILPA [facility] form, daughter was present and participated in the decision-making process as well. Results - Lab Results Lab results reviewed: Yes Fish Bones: 11/05/17 05:27 11/05/17 05:27 Lab and Imaging Results: Lab Results x24hrs 11/05/17 11/05/17 11/05/17 Range/Units 05:27 05:27 05:27 WBC 18.8 H (4.8-10.8) x10^3/uL RBC 4.77 (4.20-5.40) 10^6/uL Hgb 13.8 (12.0-16.0) g/dL Hct 42.3 (37.0-47.0) % MCV 88.5 (81.0-99.0) fL MCH 28.9 (27.0-31.0) pg MCHC 32.6 (32.0-36.0) g/dL RDW 16.1 H (12.0-15.0) % Plt Count 172 (130-450) 10^3/uL MPV 8.2 (7.9-10.8) fL Sodium 136 (135-145) mmol/L Potassium 5.3 H (3.5-5.0) mmol/L Chloride 107 (101-111) mmol/L Carbon Dioxide 21 (21-32) mmol/L Anion Gap 8.0 (6-13) BUN 27 H (6-20) mg/dL Creatinine 1.1 H (0.4-1.0) mg/dL Estimated GFR (MDRD) 48 L (>89) Glucose 134 H (70-100) mg/dL Calcium 8.6 (8.5-10.3) mg/dL B-Natriuretic Peptide 242 H (5-100) pg/mL Impression and Recommendations - Palliative Care Impression: This is an 82-year-old woman with COPD, she is hospitalized for acute exacerbation, continues to struggle with breathlessness, back pain, depression, anxiety, and functional decline. Patient goals include returning home with family support. Goals of care were reviewed and discussed with patient and daughter/son-in-law Recommendations/Counseling Done: 1.Dyspnea. Morphine sulfate scheduled twice daily to start this a.m., will evaluate effectiveness both on pain and respiratory discomfort. Has also received furosemide, was getting a chest x-ray when I left. In the context of discharge planning will need nebulizer machine at home. As well as oxygen arranged for. 2. Advanced care planning. Finalized goals for POLST "Focus on comfort, spending time with family, being at home, and at end of life a comfortable and respectful at home. [facility]IL[facility] completed and reviewed with daughter and patient, did discuss long-term support, would recommend adding nursing and bathing to current PT/OT order for home health. Discussed with daughter long- term palliative care support, feels this would be of benefit as patient is homebound, will reach out and request outpatient referral from primary care provider. Will provide palliative care support until appropriate to transition to hospice. Time Spent: 60 minutes with greater than 50% of this done in counseling and family conference regarding goals of care and anticipatory guidance follow-up with social media strategist to evaluate александр eligibility and further counseling for hiring help at home.
[2017-11-05] MEDS: levoFLOXacin 750 MG/150 ML 750 MG/150 ML BAG IV SCH (14:37)
--- NOTE | 2017-11-05 15:55 | PROVIDER PROGRESS NOTE ---
Assessment/Plan - Problem List (1) Acute exacerbation of chronic obstructive pulmonary disease (COPD) Assessment/Plan: Pt slowly improving, but not expected to ambulate (as he has been couch-ridden for 1 year), to have exercise oximetry checked. WBC also climbed, but no fever, cough or sign of infection. This is probably from being on steroids. Continue present nebs and steroids. (2) History of congestive heart failure Assessment/Plan: BNP climbed today Will give her po Lasix as an iv dose today Will get CXR to check for CHF Will get Echo to check LV and RV function (3) Physical deconditioning Assessment/Plan: Pt was seen by Palliative Care, Rianna Willis yesterday and advised treatment for depression with Citalopram and oral Morphine. I will order these Today, Rianna also obtained her Code wishes: she will be a DNR, DNI - Current Meds Current Meds: Current Medications Generic Name Dose Route Start Last Admin Trade Name Freq PRN Reason Stop Dose Admin Albuterol/Ipratropium 3 ml 11/03/17 14:14 11/05/17 07:00 Duoneb INH 3 ml Q4HR PRN Administration Wheezing Amlodipine Besylate 10 mg 11/04/17 09:00 11/05/17 09:32 Norvasc PO 10 mg DAILY [facility] Administration Atorvastatin Calcium 20 mg 11/03/17 21:00 11/04/17 21:04 Lipitor PO 20 mg 2100 [facility] Administration Citalopram Hydrobromide 10 mg 11/05/17 10:00 11/05/17 09:33 Celexa PO 10 mg DAILY [facility] Administration Guaifenesin 600 mg 11/04/17 16:00 11/05/17 09:33 Mucinex PO 600 mg BID [facility] Administration Levofloxacin 750 mg in 150 mls @ 100 mls/hr 11/03/17 15:00 11/05/17 14:37 Levaquin 750 Mg/150 Ml IV 100 mls/hr Q24H [facility] Administration Meloxicam 7.5 mg 11/03/17 21:00 11/05/17 09:34 Mobic PO 7.5 mg BID [facility] Administration Morphine Sulfate 15 mg 11/05/17 10:00 11/05/17 09:33 PO 15 mg BID [facility] Administration Dulera 2 each 11/05/17 10:39 11/05/17 11:43 INH 2 each RTBID [facility] Administration Polyethylene Glycol 17 gm 11/04/17 09:00 11/05/17 09:34 Miralax PO 17 gm DAILY [facility] Administration Prednisone 40 mg 11/04/17 09:00 11/05/17 09:34 Deltasone PO 40 mg DAILY [facility] Administration Sodium Chloride 10 ml 11/03/17 14:00 11/05/17 13:01 Normal Saline Flush 0.9% IVP 10 ml Q8HR [facility] Administration Temazepam 15 mg 11/03/17 13:16 11/04/17 01:19 Restoril PO 15 mg QPM PRN Administration Insomnia - Lab Result Fish Bone Diagrams: 11/05/17 05:27 11/05/17 05:27 - Additional Planning My Orders: My Active Orders 11/05/17 07:00 Echo Transthoracic Complete [ECHO] Routine 11/05/17 09:09 Metoprolol Succinate [Toprol Xl] 25 mg PO BID 11/05/17 10:00 Citalopram [CeleXA] 10 mg PO DAILY Morphine ER 15 mg PO BID 11/06/17 09:00 Furosemide [Lasix] 40 mg PO DAILY Subjective - Subjective Patient Reports: Feeling Better Nursing Reports: Other (Pt has been couch-bound for a year) Objective Vital Signs: Vital Signs - 24 hr 11/04/17 11/04/17 11/05/17 16:15 19:15 00:13 Temperature 36.5 C 36.7 C Heart Rate 68 Heart Rate [ 75 66 Brachial] Respiratory 15 20 20 Rate Blood Pressure 132/60 H 124/57 L [Left Brachial Artery] O2 Saturation 96 95 11/05/17 11/05/17 11/05/17 07:00 08:00 11:51 Temperature 36.3 C L Heart Rate 78 66 Heart Rate [ 65 Brachial] Respiratory 20 33 H 20 Rate Blood Pressure 119/59 L [Left Brachial Artery] O2 Saturation 94 Oxygen O2 Source Nasal cannula I&O (Last 24 Hrs): Intake and Output Totals x24h 11/03/17 11/04/17 11/05/17 23:59 23:59 23:59 Intake Total 710 2960.000 2205 Output Total 225 1050 1750 Balance 485 1910.000 455 General: Other (appears fatigued and answers with slow spech) HEENT: Mucous membr. moist/pink Neck: Supple, No JVD Cardiovascular: Regular rate, No murmurs Respiratory: No respiratory distress, Breath sounds nml Abdomen: Soft Extremities: No edema - Results Results: Laboratory Results WBC 18.8 x10^3/uL (4.8-10.8) H 11/05/17 05:27 RBC 4.77 10^6/uL (4.20-5.40) 11/05/17 05:27 Hgb 13.8 g/dL (12.0-16.0) 11/05/17 05:27 Hct 42.3 % (37.0-47.0) 11/05/17 05:27 MCV 88.5 fL (81.0-99.0) 11/05/17 05:27 MCH 28.9 pg (27.0-31.0) 11/05/17 05:27 MCHC 32.6 g/dL (32.0-36.0) 11/05/17 05:27 RDW 16.1 % (12.0-15.0) H 11/05/17 05:27 Plt Count 172 10^3/uL (130-450) 11/05/17 05:27 MPV 8.2 fL (7.9-10.8) 11/05/17 05:27 Neut # 12.5 10^3/uL (1.5-6.6) H 11/03/17 11:46 Lymph # 0.8 10^3/uL (1.5-3.5) L 11/03/17 11:46 [place] # 1.2 10^3/uL (0.0-1.0) H 11/03/17 11:46 Eos # 0.1 10^3/uL (0.0-0.7) 11/03/17 11:46 Baso # 0.1 10^3/uL (0.0-0.1) 11/03/17 11:46 Absolute Nucleated RBC 0.01 x10^3/uL 11/03/17 11:46 Nucleated RBC % 0.1 /100WBC 11/03/17 11:46 Sodium 136 mmol/L (135-145) 11/05/17 05:27 Potassium 5.3 mmol/L (3.5-5.0) H 11/05/17 05:27 Chloride 107 mmol/L (101-111) 11/05/17 05:27 Carbon Dioxide 21 mmol/L (21-32) 11/05/17 05:27 Anion Gap 8.0 (6-13) 11/05/17 05:27 BUN 27 mg/dL (6-20) H 11/05/17 05:27 Creatinine 1.1 mg/dL (0.4-1.0) H 11/05/17 05:27 Estimated GFR (MDRD) 48 (>89) L 11/05/17 05:27 Glucose 134 mg/dL (70-100) H 11/05/17 05:27 Calcium 8.6 mg/dL (8.5-10.3) 11/05/17 05:27 Total Bilirubin 1.0 mg/dL (0.2-1.0) 11/03/17 11:46 AST 19 IU/L (10-42) 11/03/17 11:46 ALT 18 IU/L (10-60) 11/03/17 11:46 Alkaline Phosphatase 56 IU/L (42-121) 11/03/17 11:46 Troponin I < 0.04 ng/mL (<0.49) 11/03/17 23:46 B-Natriuretic Peptide 242 pg/mL (5-100) H 11/05/17 05:27 Total Protein 7.5 g/dL (6.7-8.2) 11/03/17 11:46 Albumin 3.7 g/dL (3.2-5.5) 11/03/17 11:46 Globulin 3.8 g/dL (2.1-4.2) 11/03/17 11:46 Albumin/Globulin Ratio 1.0 (1.0-2.2) 11/03/17 11:46 Lipase 14 U/L (22-51) L 11/03/17 11:46
[2017-11-05] MEDS: ATORVASTATIN 10 MG TABLET PO SCH (21:18)
[2017-11-05] MEDS: METOPROLOL SUCCINATE 25 MG TABLET PO SCH (21:29)
[2017-11-06 06:10] LABS: CALCIUM 8.5 mg/dL (8.5-10.3); CREATININE 1.1 mg/dL (0.4-1.0); HGB - HEMOGLOBIN 14.4 g/dL (12.0-16.0); MEAN CORPUSCULAR HEMOGLOBIN 28.5 pg (27.0-31.0); MEAN CORPUSCULAR HGB CONC 31.9 g/dL (32.0-36.0); MEAN CORPUSCULAR VOLUME 89.4 fL (81.0-99.0); MEAN PLATELET VOLUME 8.2 fL (7.9-10.8); RED BLOOD COUNT 5.05 10^6/uL (4.20-5.40); RED CELL DISTRIBUTION WIDTH 16.5 % (12.0-15.0); WHITE BLOOD COUNT 14.3 x10^3/uL (4.8-10.8)
[2017-11-06] MEDS: SODIUM CHLORIDE FLUSH 0.9% 10 ML SYRINGE IVP SCH (06:56)
[2017-11-06] MEDS: predniSONE 20 MG TABLET PO SCH (08:38)
[2017-11-06] MEDS: amLODIPine 5 MG TABLET PO SCH (08:38)
[2017-11-06] MEDS: MORPHINE ER 15 MG TABLET PO SCH (08:38)
[2017-11-06] MEDS: CITALOPRAM 10 MG TABLET PO SCH (08:51)
[2017-11-06] MEDS: guaiFENesin 600 MG TABLET PO SCH (08:51)
[2017-11-06] MEDS: MELOXICAM 7.5 MG TABLET PO SCH (08:51)
[2017-11-06] MEDS: METOPROLOL SUCCINATE 25 MG TABLET PO SCH (08:52)
[2017-11-06] MEDS: POLYETHYLENE GLYCOL 3350 17 GM PACKET PO SCH (08:52)
[2017-11-06 08:54] VITALS: BP 134/58
[2017-11-06] MEDS: DULERA INH SCH (09:00)
[2017-11-06] MEDS ORDERED: FUROSEMIDE 40 MG TABLET PO SCH (09:00)
--- NOTE | 2017-11-06 10:46 | Discharge Plan ---
Discharge Plan Disposition: Home, Self Care Condition: Stable Prescriptions: Ipratropium/Albuterol [Duoneb] 3 ml INH Q4HR PRN #60 neb PRN Reason: Wheezing Citalopram [CeleXA] 10 mg PO DAILY #30 tablet guaiFENesin [Mucinex] 600 mg PO BID #14 tablet Methylprednisolone [Medrol] 4 mg PO DAILY #1 tab.ds.pk Morphine ER 15 mg PO BID #28 tablet Diet: Cardiac Shower Restrictions: Yes (If patient able to stand, she may take shower with Aide) Driving Restrictions: Yes Additional Instructions or Follow Up instructions: Resume all your pre-hospital medications Take the new Medrol Dose Curt til it is done Use the Mucinex for cough til it is done Use the new nebulizer medication as needed You have been started on home oxygen You are on newly prescribed medications that were recommended by the Palliative Care FAMILY AND CONSUMER EDUCATION TEACHER: Morphine orally twice a day and Celexa daily. Home Health has been ordered for you: RN care, Bath Aide, Home OT and Home PT Follow-Up Care: Home Health - RN (and Home Health Aide), Home Health - PT, Home Health - OT No Smoking: If you smoke, Please STOP! Call for help. Follow-up with: Donnell Chaudhary MD [Primary Care Provider] -
--- NOTE | 2017-11-25 04:09 | DISCHARGE SUMMARY ---
Physician: Laura Esparza MD DATE OF ADMISSION: 11/03/2017 DATE OF DISCHARGE: 11/06/2017 HISTORY OF PRESENT ILLNESS: This is an 82-year-old white female with history of COPD and hypertension, who lives with her 2 children, is alone at home for several hours while they are at work. The patient presented with slowly progressive shortness of breath over the last several months, worsening over the last 1 week and was found to have an oxygen saturation of 69% on room air. She was given multiple doses of bronchodilators and steroids and started on supplemental oxygen and was still very short of breath and desaturating on room air and therefore was admitted for management of her respiratory status. HOSPITAL COURSE AND DISCHARGE DIAGNOSES 1. Chronic obstructive pulmonary disease. The patient required IV steroids, nebulized inhalers of steroids and bronchodilators. She was extremely weak and debilitated and continued to be short of breath even at rest and required a prescription for home oxygen at discharge, because the patient was hypoxic at rest with room air oxygen saturation of 86%. At rest with oxygen at 3 liters per minute via nasal cannula, her saturations improved to 93% - 94%. I ordered home oxygen at 3 liters per minute via nasal cannula continuously for this patient. The patient also required a home nebulizer machine that was ordered for administration of bronchodilators to help treat her chronic obstructive pulmonary disease. A chest x-ray showed stable cardiomegaly and fibrosis and no interval change from several days previously. 2. Deconditioning. Because of her significant weakness and shortness of breath even at rest, physical therapy was not aggressive with this patient. She was discharged with an order for home health aide, home health RN, home health OT and PT. 3. Depression. The patient was seen in consultation by palliative care, Rianna Willis NP, who advised that she be treated for depression as well as her significant lung condition. The patient was started on citalopram as well as morphine. LABORATORY AND IMAGING: Reviewed and summarized above. CONDITION AT DISCHARGE: Guarded. PHYSICAL EXAMINATION AT DISCHARGE VITAL SIGNS: Blood pressure 134/58, pulse of 65 in sinus rhythm, respiratory rate 24, oxygen saturation 95% on supplemental oxygen. HEENT: Temporal wasting of muscles, normal moist oral mucosa. NECK: Positive JVD in a vertical position. No carotid bruits. CHEST: Diminished breath sounds diffusely but no wheezing or rales. HEART: Sounds distant. ABDOMEN: Soft, nontender. EXTREMITIES: Without edema. NEUROLOGIC: Grossly intact. ALLERGIES: NONE. MEDICATIONS AT THE TIME OF DISCHARGE 1. DuoNeb inhaler every 4 hours p.r.n. shortness of breath. 2. Amlodipine 10 mg p.o. daily. 3. Celexa 10 mg p.o. daily. 4. Lasix 40 mg p.o. daily. 5. Mucinex 600 mg p.o. b.i.d. for 1-week course. 6. Meloxicam 7.5 mg p.o. b.i.d. 7. Medrol Dosepak. 8. Toprol-XL 25 mg p.o. b.i.d. 9. Dulera 2 puffs b.i.d. 10. Morphine extended release 15 mg p.o. b.i.d., 28 tablets were given. 11. Crestor 10 mg p.o. every evening. CODE STATUS: DO NOT RESUSCITATE. FOLLOWUP: With her primary care physician and/or steel crane operator in the next 1-3 weeks. TIME REQUIRED TO COMPLETE THIS ENTIRE DISCHARGE INCLUDING DICTATION, FACE-TO- FACE FOR OXYGEN THERAPY ORDER AND NEBULIZER ORDER, AND NEW MEDICATION PRESCRIPTIONS: 45 minutes. TD: 11/25/2017 04:08 YASSINE
== END 2017-11-06 14:30 | disposition home or self-care (01) | DRG 192 ==
LOC: ED 11:08 → MS2 13:16
PROVIDERS: ADMIT Hospitalist; ATTEND Internal Medicine
DX: J44.1 Chronic obstructive pulmonary disease with (acute) exacerbation (principal); J44.9 Chronic obstructive pulmonary disease, unspecified; I10 Essential (primary) hypertension; M12.9 Arthropathy, unspecified; F17.200 Nicotine dependence, unspecified, uncomplicated; J84.10 Pulmonary fibrosis, unspecified; N28.9 Disorder of kidney and ureter, unspecified; E55.9 Vitamin D deficiency, unspecified; I11.0 Hypertensive heart disease with heart failure; Z86.718 Personal history of other venous thrombosis and embolism; I50.9 Heart failure, unspecified; E78.5 Hyperlipidemia, unspecified; R09.02 Hypoxemia; F32.9 Major depressive disorder, single episode, unspecified; Z66 Do not resuscitate; Z99.81 Dependence on supplemental oxygen; Z79.899 Other long term (current) drug therapy; Z51.5 Encounter for palliative care
CPT/HCPCS: 36415; 71045; 80048; 80053; 83690; 83880; 84484; 85025; 93005; 93306; 94640; 94761; 96374; 99223; 99233; 99284

== ENCOUNTER 2017-11-06 14:36 | Outpatient (CLI) | payer MEDICARE, OTHER | END 2017-11-06 14:37 | disposition home or self-care (01) | LOC: EMS 14:36 | PROVIDERS: ATTEND Surgery | DX: R06.02 Shortness of breath (principal); Z74.01 Bed confinement status; Z99.81 Dependence on supplemental oxygen | CPT/HCPCS: A0425; A0428 ==

== ENCOUNTER 2018-03-28 09:29 | Outpatient (CLI) | payer MEDICARE, OTHER | END 2018-03-28 09:30 | disposition critical access hospital (66) | LOC: EMS 09:29 | PROVIDERS: ATTEND Surgery | DX: R46.4 Slowness and poor responsiveness (principal); R41.0 Disorientation, unspecified | CPT/HCPCS: A0425; A0429 ==

== ENCOUNTER 2018-03-28 09:52 | Inpatient (IN) | payer MEDICARE, OTHER ==
[2018-03-28 11:07] LABS: BILIRUBIN,URINE NEGATIVE (NEGATIVE); GLUCOSE, URINE (UA) NEGATIVE (NEGATIVE); KETONES,URINE (UA) NEGATIVE (NEGATIVE); LEUKOCYTE ESTERASE, URINE MODERATE (NEGATIVE); NITRITE,URINE NEGATIVE (NEGATIVE); OCCULT BLOOD,URINE MODERATE (NEGATIVE); PROTEIN,URINE 30 mg/dL (NEGATIVE); UROBILINOGEN,URINE 0.2 (NORMAL) E.U./dL (NORMAL)
--- NOTE | 2018-03-28 11:10 | ED Physician Documentation ---
PD HPI ALTERED MENTAL STATUS - Stated complaint Stated Complaint: DEC LOC - Chief complaint Chief Complaint: Neuro - History obtained from History obtained from: Patient, Family (daughters) - History of Present Illness Timing - onset: How many days ago (few) Timing - duration: Days Timing - details: Gradual onset, Still present Quality / character: Confused, Agitated (The patient's daughters state she has been agitated and confused beyond her baseline for the past several days. She has had some to degree of worsening dementia with periods of little interaction over the past 5 or 6 months. She was hospitalized in October and has not really rebounded back after that hospitalization according to the daughters. She did get physical therapy and home health aides for several weeks after. The daughters have been caring for her since then. She has been essentially bedbound due to deconditioning and weakness. She has had periods of several days at a time of poor interaction not wanted to eat or take her medicines. However the symptoms the past few days have been confusion and agitation which is unusual for her.) Associated symptoms: Dyspnea (chronic), Cough. No: Fever, Headache, NVD Contributing factors: No: Anticoagulated, Diabetic, Recent med change (last med changes were Oct/November, with new meds in Oct and stopped Morphine week or two later.), Recent illness Basline status: Disoriented, Bedbound (due to weakness) Similar symptoms before: Has not had sx before (has had dementia worsening for 5 -6 months and family wonders if med related vs. CVA vs. infections now, etc. Unable to get patient to PMD office due to bedbound/nonambulatory.) Recently seen: Not recently seen Review of Systems Unable to obtain: Dementia, Other (info from daughters) Constitutional: denies: Fever Nose: denies: Rhinorrhea / runny nose, Congestion Throat: denies: Sore throat Respiratory: reports: Wheezing. denies: Cough GI: denies: Vomiting, Diarrhea (loose stool daily, incontinent) : reports: Incontinent Skin: denies: Rash, Lesions Neurologic: reports: Generalized weakness, Confused. denies: Focal weakness Psychiatric: denies: Anxiety Endocrine: denies: Easy bruising / bleeding PD PAST MEDICAL HISTORY - Past Medical History Cardiovascular: Hypertension, High cholesterol Respiratory: COPD, Shortness of breath Endocrine/Autoimmune: Other GI: Hemorrhoids : Incontinence HEENT: Chronic vision loss Psych: Depression, Anxiety Musculoskeletal: Rheumatoid arthritis, Fatigue, Chronic back pain Derm: None - Past Surgical History /AUDIT PRACTICE INTERN: Hysterectomy Cardiovascular: Other - Present Medications Home Medications: Ambulatory Orders Medication Instructions Recorded Confirmed Furosemide 40 mg PO DAILY 11/03/17 11/03/17 Meloxicam 7.5 mg PO BID 11/03/17 11/03/17 Metoprolol Succinate 25 mg PO BID 11/03/17 11/03/17 Mometasone/Formoterol [Dulera 200 2 puffs INH BID 11/03/17 11/03/17 Mcg/5 Mcg Inhaler] amLODIPine [Norvasc] 10 mg PO DAILY 11/03/17 11/03/17 Citalopram [CeleXA] 10 mg PO DAILY #30 tablet 11/06/17 Ipratropium/Albuterol [Duoneb] 3 ml INH Q4HR PRN #60 neb 11/06/17 - Allergies Allergies/Adverse Reactions: Allergies Allergy/AdvReac Type Severity Reaction Status Date / Time No Known Drug Allergies Allergy Verified 11/03/17 11:24 - Living Situation Living Situation: reports: With family Living Arrangement: reports: At home - Social History Does the pt smoke?: No Smoking Status: Current every day smoker Does the pt drink ETOH?: No Does the pt have substance abuse?: No - Family History Family history: reports: Non contributory - POLST Patient has POLST: Yes POLST Status: DNR (Patient wishes to do advanced care planning when her daughter arrives later today.) PD ED PE NORMAL - Vitals Vital signs reviewed: Yes - General General: Alert and oriented X 3, No acute distress, Well developed/nourished - HEENT HEENT: Pharynx benign - Neck Neck: Supple, no meningeal sign, No adenopathy, No JVD - Cardiac Cardiac: RRR, No murmur - Respiratory Respiratory: No: Clear bilaterally (mild exp wheezes; no coarse sounds. ) - Abdomen Abdomen: Soft, Non tender - Female Female : Deferred - Rectal Rectal: Deferred - Back Back: No CVA TTP - Derm Derm: Normal color, Warm and dry - Extremities Extremities: No tenderness to palpate, Normal ROM s pain - Neuro Neuro: costume draper 2-12 intact, Normal speech (answers simple questions but not oriented. Eyes open with alertness. ) Eye Opening: Spontaneous Motor: Obeys Commands Verbal: Confused GCS Score: 14 Results - Vitals Vitals: Vital Signs - 24 hr 03/28/18 03/28/18 09:56 12:59 Temperature 36.4 C L Heart Rate 73 64 Respiratory 16 20 Rate Blood Pressure 140/78 H 140/087 H O2 Saturation 97 97 Oxygen O2 Source Nasal cannula Oxygen Flow Rate 2 - Labs Labs: Laboratory Tests 03/28/18 03/28/18 03/28/18 10:45 12:32 12:32 WBC 11.7 H RBC 4.82 Hgb 14.9 Hct 44.4 MCV 92.2 MCH 30.9 MCHC 33.5 RDW 14.0 Plt Count 229 MPV 7.6 L Neut # (Auto) 8.3 H Lymph # (Auto) 0.9 L Lassen # (Auto) 1.1 H Eos # (Auto) 1.2 H Baso # (Auto) 0.2 H Absolute Nucleated RBC 0.00 Nucleated RBC % 0.0 Sodium 136 Potassium 4.6 Chloride 102 Carbon Dioxide 23 Anion Gap 11.0 BUN 38 H Creatinine 1.4 H Estimated GFR (MDRD) 36 L Glucose 100 Lactic Acid Calcium 9.3 Magnesium 2.5 Total Bilirubin 0.5 AST 18 ALT 14 Alkaline Phosphatase 55 Total Creatine Kinase 28 B-Natriuretic Peptide Total Protein 7.3 Albumin 3.6 Globulin 3.7 Albumin/Globulin Ratio 1.0 Lipase 33 TSH Urine Color YELLOW Urine Clarity CLOUDY Urine pH 6.0 Ur Specific [place] 1.015 Urine Protein 30 H Urine Glucose (UA) NEGATIVE Urine Ketones NEGATIVE Urine Occult Blood MODERATE H Urine Nitrite NEGATIVE Urine Bilirubin NEGATIVE Urine Urobilinogen 0.2 (NORMAL) Ur Leukocyte Esterase MODERATE H Urine RBC 11-25 H Urine WBC >25 H Urine WBC Clumps PRESENT Ur Squamous Epith Cells FEW Squamous Urine Bacteria Moderate H Ur Microscopic Review INDICATED Urine Culture Comments INDICATED 03/28/18 03/28/18 03/28/18 12:32 12:32 12:32 WBC RBC Hgb Hct MCV MCH MCHC RDW Plt Count MPV Neut # (Auto) Lymph # (Auto) Lassen # (Auto) Eos # (Auto) Baso # (Auto) Absolute Nucleated RBC Nucleated RBC % Sodium Potassium Chloride Carbon Dioxide Anion Gap BUN Creatinine Estimated GFR (MDRD) Glucose Lactic Acid 0.7 Calcium Magnesium Total Bilirubin AST ALT Alkaline Phosphatase Total Creatine Kinase B-Natriuretic Peptide 107 H Total Protein Albumin Globulin Albumin/Globulin Ratio Lipase TSH 2.41 Urine Color Urine Clarity Urine pH Ur Specific [place] Urine Protein Urine Glucose (UA) Urine Ketones Urine Occult Blood Urine Nitrite Urine Bilirubin Urine Urobilinogen Ur Leukocyte Esterase Urine RBC Urine WBC Urine WBC Clumps Ur Squamous Epith Cells Urine Bacteria Ur Microscopic Review Urine Culture Comments - Rads (name of study) cxr Radiology: Prelim report reviewed (no acute process) head CT Radiology: Prelim report reviewed (age related and diffuse microvascular disease ; no evidence of acute/subacute CVA nor bleed. ) PD MEDICAL DECISION MAKING - ED course Complexity details: reviewed results (has UTI and elevated WBC. Other labs are okay. Likely current exac of dementia along with agitation is infection related. Conside some med effects too and would consider deleting some meds from her list. ), considered differential (Sounds like some undulating level of dementia over the last 5 or 6 months. She has been on new medications during that time including initially some morphine but that was discontinued within a week or 2, citalopram, guaifenesin, cholesterol medicine, diuretics, blood pressure medicines. She has had undulating levels of dementia. She has deconditioning and has been unable to get out of bed on her own or even with assistance. Her daughter states she has been just going to the bathroom in bed and being fed in bed. She did have home health nursing, aides, PT when she got discharged from the hospital in October but that was only for several weeks. The family has been caring for her in the meantime. They have noticed significant change in her mentation with confusion and agitation the last several days.), d/w patient, d/w animal nutrition consultant (Dr. Ladd, hospitalist), other (I would consider good hydration, antibiotics for the urinary tract infection as well as possibly discontinuing the guaifenesin since her congestion is better and also the cholesterol medicines as that can cause confusion sometimes. Her diuretic is reasonable as her electrolytes are good. She is no longer on morphine. The daughter is wondering about her antidepressant with her that might be causing more symptoms. That was started in October and she had had worsened dementia during that time. I will defer that judgment to the hospitalist.) - Sepsis Event Vital Signs: Vital Signs - 24 hr 03/28/18 03/28/18 09:56 12:59 Temperature 36.4 C L Heart Rate 73 64 Respiratory 16 20 Rate Blood Pressure 140/78 H 140/087 H O2 Saturation 97 97 Oxygen O2 Source Nasal cannula Oxygen Flow Rate 2 Departure - Departure Disposition: [facility] DC/Xfer Clinical Impression: Acute confusion due to infection UTI (urinary tract infection) Qualifiers: Urinary tract infection type: acute cystitis Hematuria presence: without hematuria Qualified Code(s): N30.00 - Acute cystitis without hematuria Leukocytosis Qualifiers: Leukocytosis type: unspecified Qualified Code(s): D72.829 - Elevated white blood cell count, unspecified
[2018-03-28 11:13] LABS: CLARITY,URINE CLOUDY (CLEAR)
[2018-03-28 11:27] LABS: BACTERIA,URINE Moderate /HPF (None Seen); SQUAMOUS EPITHELIAL CELL,UR FEW Squamous (<= Few); WBC CLUMPS,URINE PRESENT
[2018-03-28] MEDS ORDERED: SODIUM CHLORIDE 0.9% 1,000 ML IV ONE (11:43)
[2018-03-28] MEDS ORDERED: cefTRIAXone 1 GM in SODIUM CHLORIDE 0.9% MINIBAG 100 ML IV STA (11:43)
--- NOTE | 2018-03-28 12:22 | XRAY Report ---
Procedure Date: 03/28/2018 Accession Number: [id number] / [id number] Procedure: XR - Chest 1 View X-Ray CPT Code: 35565 FULL RESULT: EXAM: CHEST RADIOGRAPHY EXAM DATE: 03/28/2018 12:06 PM. CLINICAL HISTORY: Altered mentation. COMPARISON: Chest x-ray 11/05/2017. TECHNIQUE: 1 view. FINDINGS: Lungs/Pleura: Diffuse abnormal increased interstitial opacities with hazy bilateral airspace opacities, left greater than right. No pneumothorax. Small pleural effusion on the left not excluded. No gross pleural effusion on the right. Mediastinum: Cardiomegaly. Calcified atherosclerosis. Bilateral hilar prominence that overall resolution of hilar limited due to patient body habitus and film technique. Other: None. IMPRESSION: 1. Diffuse interval increase in interstitial and hazy airspace opacities. In the setting of cardiomegaly and calcified atherosclerosis, pulmonary edema is a consideration. Other causes of increased opacity including infection is not excluded. Clinical correlation is needed. Follow-up is recommended to assess resolution. If indicated clinically, CT could also be considered for further assessment. 2. Exam otherwise as above. RADIA
--- NOTE | 2018-03-28 12:35 | CT Report ---
Procedure Date: 03/28/2018 Accession Number: [id number] / [id number] Procedure: CT - Head W/O CPT Code: FULL RESULT: EXAM: CT HEAD EXAM DATE: 03/28/2018 12:20 PM. CLINICAL HISTORY: Altered mentation. COMPARISON: None. TECHNIQUE: Multiaxial CT images were obtained from the foramen magnum to the vertex. Reformats: Coronal. IV contrast: None. In accordance with CT protocol optimization, one or more of the following dose reduction techniques were utilized for this exam: automated exposure control, adjustment of mA and/or KV based on patient size, or use of iterative reconstructive technique. FINDINGS: Parenchyma: No intraparenchymal hemorrhage. No evidence of mass, midline shift, or CT findings of acute infarction. Ulloa-white differentiation is distinct. Diffuse chronic microangiopathic white matter changes are evident. Extraaxial Spaces: Normal for age. No subdural or epidural collections identified. Ventricles: The ventricles and cortical sulci are enlarged, consistent with parenchymal volume loss. Sinuses and orbits: Imaged paranasal sinuses, orbits, and mastoids show no significant abnormality. Bones: No evidence of fracture or calvarial defect. Other: None. IMPRESSION: 1. Cortical atrophy and relatively extensive chronic small vessel ischemic changes in deep white matter bilaterally. No associated positive mass effect or loss of ulloa-white differentiation is seen to suggest acute or subacute stroke or underlying mass. No hemorrhage. 2. Ventriculomegaly not disproportionate to the degree of volume loss and white matter disease. No hydrocephalus. 3. Examination otherwise as detailed above. RADIA
[2018-03-28 12:39] LABS: BASOPHILS # (AUTO) 0.2 10^3/uL (0.0-0.1); BASOPHILS % (AUTO) 1.6 %; EOSINOPHILS # (AUTO) 1.2 10^3/uL (0.0-0.7); EOSINOPHILS % (AUTO) 10.2 %; HGB - HEMOGLOBIN 14.9 g/dL (12.0-16.0); LYMPHOCYTES # (AUTO) 0.9 10^3/uL (1.5-3.5); LYMPHOCYTES % (AUTO) 8.1 %; MEAN CORPUSCULAR HEMOGLOBIN 30.9 pg (27.0-31.0); MEAN CORPUSCULAR HGB CONC 33.5 g/dL (32.0-36.0); MEAN CORPUSCULAR VOLUME 92.2 fL (81.0-99.0); MEAN PLATELET VOLUME 7.6 fL (7.9-10.8); MONOCYTES # (AUTO) 1.1 10^3/uL (0.0-1.0); MONOCYTES % (AUTO) 9.2 %; NEUTROPHILS # (AUTO) 8.3 10^3/uL (1.5-6.6); NEUTROPHILS % (AUTO) 70.9 %; PLT - PLATELET COUNT 229 10^3/uL (130-450); RED BLOOD COUNT 4.82 10^6/uL (4.20-5.40); WHITE BLOOD COUNT 11.7 x10^3/uL (4.8-10.8)
[2018-03-28] MEDS ORDERED: cefTRIAXone 1 GM in SODIUM CHLORIDE 0.9% MINIBAG 100 ML IV SCH (13:00)
[2018-03-28 13:10] LABS: ALBUMIN 3.6 g/dL (3.2-5.5); BILIRUBIN,TOTAL 0.5 mg/dL (0.2-1.0); CREATININE 1.4 mg/dL (0.4-1.0); MAGNESIUM 2.5 mg/dL (1.7-2.8); TOTAL PROTEIN 7.3 g/dL (6.7-8.2)
[2018-03-28 13:30] LABS: CALCIUM 9.3 mg/dL (8.5-10.3)
[2018-03-28] MEDS ORDERED: ONDANSETRON 4 MG/2 ML VIAL IVP PRN (15:06)
[2018-03-28] MEDS ORDERED: SODIUM CHLORIDE FLUSH 0.9% 10 ML SYRINGE IVP PRN (15:06)
[2018-03-28] MEDS ORDERED: IPRATROPIUM/ALBUTEROL 3 ML NEB INH PRN (15:10)
[2018-03-28] MEDS ORDERED: ALBUTEROL NEB 2.5 MG/3 ML INH PRN (15:20)
--- NOTE | 2018-03-28 15:21 | HISTORY & PHYSICAL EXAMINATION ---
Chief Complaint - Chief Complaint Chief Complaint: altered mental status History of Present Illness - Admitted From Admitted From:: ER - History Obtained From History obtained from: pt's deannugher - History of Present Illness HPI Comment/Other: Ms. Kothari is 82-yrs-old female with a PMH significance for HTN, HLD, COPD, SOB , incontinence, depression/anxiety, advanced dementia, chronic back, chronic vision loss, Rheumatoid arthritis, CKD, recurrence of UTI, who present ER for complaint of altered mental status. Pt has hx of advanced dementia, aphasia. Pt' s two daughters at pt's bedside answer questions. Pt has had worsening dementia with little interaction over the past 5 or 6 months. In the past several days Pt 's daughters state pt has been agitated and confused beyond her baseline. The daughters also report pt's O2 sats was at middle of 80%. Pt has been O2 dependent with 3 liter O2 on NC. Pt was hospitalized in October, since that, pt has not really rebounded back, and continue to be deconditioning and weakness. Pt did get physical therapy and home health aides for several weeks after discharge from [facility]. Pt has four daughters, four daughters have been caring for pt since then. CT of head is without acute findings, CXR reveals pulmonary edema, UA shows UTI. pt had slight elevated WBC. History - Past Medical History Cardiovascular: reports: Hypertension, High cholesterol Respiratory: reports: COPD, Shortness of breath Endocrine/Autoimmune: reports: Other GI: reports: Hemorrhoids : reports: Incontinence HEENT: reports: Chronic vision loss Psych: reports: Depression, Anxiety Musculoskeletal: reports: Rheumatoid arthritis, Fatigue, Chronic back pain Derm: reports: None MRSA Hx?: No - Past Surgical History /CLIENT SERVICE COORDINATOR: reports: Hysterectomy Cardiovascular: reports: Other - Family & Social History Family History: Mother: , CVA/TIA, Father: , Alzheimer's Disease , CAD Family History Comment/Other: pt is living with her daughter family, her daughters are the main caregiver. Living arrangement: At home Living Situation: With family Social History Notes: pt has no history of cigarette smoking, alcohol and drug abuse - Substance History Use: Uses substance without health or social issues: NONE - POLST Patient has POLST: Yes POLST Status: DNR (Patient wishes to do advanced care planning when her daughter arrives later today.) Meds/Allgy - Home Medications Home Medications: Ambulatory Orders Medication Instructions Recorded Confirmed Furosemide 40 mg PO DAILY 11/03/17 03/28/18 Meloxicam 7.5 mg PO BID 11/03/17 03/28/18 Metoprolol Succinate 25 mg PO BID 11/03/17 03/28/18 Mometasone/Formoterol [Dulera 200 1 puffs INH BID PRN 11/03/17 03/28/18 Mcg/5 Mcg Inhaler] amLODIPine [Norvasc] 10 mg PO DAILY 11/03/17 03/28/18 Citalopram [CeleXA] 10 mg PO DAILY #30 tablet 11/06/17 03/28/18 Ipratropium/Albuterol [Duoneb] 3 ml INH Q4HR PRN #60 neb 11/06/17 03/28/18 - Allergies Allergies/Adverse Reactions: Allergies Allergy/AdvReac Type Severity Reaction Status Date / Time No Known Drug Allergies Allergy Verified 11/03/17 11:24 Review of Systems - Constitutional Constitutional: reports: Poor appetite. denies: Fever, Chills, Malaise, Diaphoresis, Night sweats - Eyes Eyes: denies: Pain, Amaurosis, Blurred vision, Vision loss - Ears, Nose & Throat Ears, Nose & Throat: denies: Ear pain, Hearing loss, Vertigo, Nasal congestion, Sore throat, Hoarseness, Bleeding gums - Cardiovascular Cariovascular: denies: Irregular heart rate, Palpitations, Chest pain, Edema, Lightheadedness, Syncope, Exertional dyspnea, Decr. exercise tolerance - Respiratory Respiratory: denies: Cough, Sputum production, Wheezing, Snoring, Hemoptysis, Orthopnea, SOB at rest, SOB with exertion - Gastrointestinal Gastrointestinal: denies: Abdominal pain, Abdominal distention, Constipation, Diarrhea, Change in bowel habits, Rectal bleeding - Genitourinary Genitourinary: reports: Incontinence. denies: Dysuria, Hematuria, Flank pain, Urethral discharge - Musculoskeletal Musculoskeletal: denies: Muscle pain, Muscle aches, Joint swelling - Integumentary Integumentary: denies: Rash, Lesions, Acne, Pigment changes - Neurological Neurological: reports: General weakness. denies: Focal weakness, Headache, Dizziness, Numbness, Seizures, Incoordination, Slurred speech - Psychiatric Psychiatric: denies: Suicidal, Delusions, Hallucinations, Homicidal - Endocrine Endocrine: denies: Polyuria, Polydypsia, Polyphagia - Hematologic/Lymphatic Hematologic/Lymphatic: denies: Anemia, Bruising, Petechiae, Lymphadenopathy, Bleeding tendencies Exam - Vital Signs Reviewed Vital Signs: Yes Vital Signs: Vital Signs x48h Temp Pulse Resp BP Pulse Ox 03/28/18 12:59 64 20 140/087 H 97 03/28/18 09:56 36.4 C L 73 16 140/78 H 97 - Physical Exam General Appearance: positive: No acute distress, Alert. negative: Lethargic Eyes Bilateral: positive: Normal inspection, PERRL, No lid inflammation, Conjunctivae nml ENT: positive: ENT inspection nml, Pharynx nml, No signs of dehydration. negative: Purulent nasal drainage, Pharyngeal erythema, Oral lesions Neck: positive: Nml inspection, Thyroid nml, No JVD, Trachea midline. negative : Thyromegaly, Lymphadenopathy (R), Lymphadenopathy (L), Stiff neck, Swelling/ bruising, Tracheal deviation Respiratory: positive: Chest non-tender, No respiratory distress, Breath sounds nml. negative: Wheezes, Rales, Rhonchi Cardiovascular: positive: Regular rate & rhythm, No murmur, No gallop. negative : Irregularly irregular, Extrasystoles, Tachycardia, Bradycardia, JVD present, Systolic murmur, Diastolic murmur Peripheral Pulses: positive: 2+ Abdomen: positive: Non-tender, No organomegaly, Nml bowel sounds, No distention. negative: Tenderness, Guarding, Rebound Back: positive: Nml inspection. negative: CVA tenderness (R), CVA tenderness (L ) Skin: positive: Color nml, No rash, Warm, Dry. negative: Cyanosis, Diaphoresis , Pallor Extremities: positive: Non-tender, Nml appearance. negative: Pedal edema, Calf tenderness, Joint swelling, Jensen's sign/cords Neurologic/Psychiatric: negative: Weakness, Sensory loss, Facial droop Conclusion/Plan - Problem List (1) UTI (urinary tract infection) Conclusion/Plan: UA reveals UTI, it may be the cause of AMS UA culture, will follow up [place] (2) Altered mental status Conclusion/Plan: family report pt more agitated and restless recently, UA reveals UTI, it may the cause. CT of head without acute findings. pt is with hx of advanced dementia , aphasia. Pt need total care. treat underline UTI with rocephin neuro check, on tele (3) Physical deconditioning Conclusion/Plan: family report pt's medical condition recently declined significantly, and physical deconditioning. pt has been on palliative, and with hx of advanced dementia continue support (4) Dementia Conclusion/Plan: advanced, aphasia, pt need total care. Pt's four children has been taking care of pt, and request d/c home after pt's stable. (5) HTN (hypertension) Conclusion/Plan: stable, continue home meds (6) COPD (chronic obstructive pulmonary disease) Conclusion/Plan: pt has been 3 liter O2 at home, O2 dependence. Now is 96% sats on 3 liter of O2. pt is stable. continue home meds, Duoneb, albuterol PRN continue O2 supplement (7) CKD (chronic kidney disease) Conclusion/Plan: pt has slight elevated creatinine but pt has pulmonary edema shown at CXR today , clinic hypoxia and SOB at home. hold IVF of NS avoid nephrotoxin agents lab monitor (8) Pulmonary edema Conclusion/Plan: CXR reveals pulmonary edema, pt presented SOB, hypoxia at home per pt's daughter reports. home PO Lasix to IV Lasix check ECHO, will follow up (9) DVT prophylaxis Conclusion/Plan: SCD and Lovenox (10) Do not intubate, cardiopulmonary resuscitation (CPR)-only code status Conclusion/Plan: DNR - Lab Results Fish Bones: 03/29/18 04:35 03/29/18 04:35 Core Measures - Anticipated LOS I expect patient to be DC'd or transferred within 96 hours.: Yes - DVT/VTE - Prophylaxis VTE/DVT Device ordered at admit?: Yes VTE/DVT Prophylaxis med ordered at admit?: Yes
[2018-03-28] MEDS: SODIUM CHLORIDE FLUSH 0.9% 10 ML SYRINGE IVP SCH (16:52)
[2018-03-28] MEDS: METOPROLOL SUCCINATE 25 MG TABLET PO SCH (20:35)
[2018-03-28] MEDS: FUROSEMIDE 40 MG/4 ML VIAL IVP SCH (20:35)
[2018-03-29 04:52] LABS: BASOPHILS # (AUTO) 0.1 10^3/uL (0.0-0.1); BASOPHILS % (AUTO) 0.7 %; EOSINOPHILS # (AUTO) 0.9 10^3/uL (0.0-0.7); EOSINOPHILS % (AUTO) 6.4 %; HGB - HEMOGLOBIN 14.8 g/dL (12.0-16.0); LYMPHOCYTES # (AUTO) 1.6 10^3/uL (1.5-3.5); LYMPHOCYTES % (AUTO) 10.7 %; MEAN CORPUSCULAR HEMOGLOBIN 31.2 pg (27.0-31.0); MEAN CORPUSCULAR HGB CONC 34.1 g/dL (32.0-36.0); MEAN CORPUSCULAR VOLUME 91.5 fL (81.0-99.0); MEAN PLATELET VOLUME 7.7 fL (7.9-10.8); MONOCYTES # (AUTO) 1.8 10^3/uL (0.0-1.0); MONOCYTES % (AUTO) 11.9 %; NEUTROPHILS # (AUTO) 10.3 10^3/uL (1.5-6.6); NEUTROPHILS % (AUTO) 70.3 %; PLT - PLATELET COUNT 234 10^3/uL (130-450); RED BLOOD COUNT 4.75 10^6/uL (4.20-5.40); RED CELL DISTRIBUTION WIDTH 14.1 % (12.0-15.0); WHITE BLOOD COUNT 14.7 x10^3/uL (4.8-10.8)
[2018-03-29 04:59] LABS: ALBUMIN 3.6 g/dL (3.2-5.5); ALBUMIN/GLOBULIN RATIO 0.9 (1.0-2.2); BILIRUBIN,TOTAL 0.7 mg/dL (0.2-1.0); CALCIUM 9.3 mg/dL (8.5-10.3); CREATININE 1.4 mg/dL (0.4-1.0); MAGNESIUM 2.2 mg/dL (1.7-2.8); TOTAL PROTEIN 7.4 g/dL (6.7-8.2)
[2018-03-29] MEDS: SODIUM CHLORIDE FLUSH 0.9% 10 ML SYRINGE IVP SCH ×3 (06:32→15:49)
[2018-03-29] MEDS: FUROSEMIDE 40 MG/4 ML VIAL IVP SCH ×2 (08:58→20:40)
[2018-03-29] MEDS ORDERED: cefTRIAXone 1 GM VIAL IVP SCH (09:00)
[2018-03-29] MEDS: METOPROLOL SUCCINATE 25 MG TABLET PO SCH ×2 (09:01→20:40)
[2018-03-29] MEDS: amLODIPine 5 MG TABLET PO SCH (09:01)
[2018-03-29] MEDS: FAMOTIDINE 20 MG TABLET PO SCH (09:01)
[2018-03-29] MEDS: POLYETHYLENE GLYCOL 3350 17 GM PACKET PO SCH (09:02)
[2018-03-29] MEDS: ENOXAPARIN 30 MG/0.3 ML SYRINGE SUBQ SCH (09:03)
[2018-03-29] MEDS ORDERED: cefTRIAXone 1 GM in SODIUM CHLORIDE 0.9% MINIBAG 100 ML IV SCH (14:00)
--- NOTE | 2018-03-29 15:11 | PROVIDER PROGRESS NOTE ---
Subjective - Prog Note Date Prog Note Date: 03/29/18 - Subjective Pt reports feeling: No change Subjective: pt is aphasia, and require total care. Family member is not at the bedside. No fever, chill, cough reported. But in the night , there is two time episode of 6 pulse of VT in tele reported. So far, there is no more VT. It seems pt has no distress and laying at the bed. pt's vital signs are stable. troponin is negative. EKG pending, ECHO is pending, tele is continuing. Pt is DNR code status. Current Medications - Current Medications Current Medications: Active Medications Acetaminophen (Tylenol) 650 mg PO Q4HR PRN PRN Reason: Pain 1 to 4 Albuterol () 2.5 mg INH RTQ4H PRN PRN Reason: Wheezing Albuterol/Ipratropium (Duoneb) 3 ml INH RTQ4H PRN PRN Reason: Wheezing Amlodipine Besylate (Norvasc) 10 mg PO DAILY [facility] Last Admin: 03/29/18 09:01 Dose: 10 mg Enoxaparin Sodium (Lovenox) 30 mg SUBQ DAILY [facility] Last Admin: 03/29/18 09:03 Dose: 30 mg Famotidine (Pepcid) 20 mg PO DAILY [facility] Last Admin: 03/29/18 09:01 Dose: 20 mg Furosemide (Lasix Inj 40 Mg Vial) 20 mg IVP BID [facility] Last Admin: 03/29/18 08:58 Dose: 20 mg Ertapenem 1 gm/ Sodium (Chloride) 100 mls @ 200 mls/hr IV Q24H [facility] Metoprolol Succinate (Toprol Xl) 25 mg PO BID [facility] Last Admin: 03/29/18 09:01 Dose: 25 mg Multi-Ingredient Ointment (Zinc Oxide) 1 applic TOP PRN PRN PRN Reason: Skin Care Ondansetron HCl (Zofran Inj) 4 mg IVP Q6HR PRN PRN Reason: Nausea / Vomiting Polyethylene Glycol (Miralax) 17 gm PO DAILY [facility] Last Admin: 03/29/18 09:02 Dose: 17 gm Sodium Chloride (Normal Saline Flush 0.9%) 10 ml IVP PRN PRN PRN Reason: NEEDED PER PROVIDER ORDERS Sodium Chloride (Normal Saline Flush 0.9%) 10 ml IVP 0100,0900,1700 [facility] Last Admin: 03/29/18 08:59 Dose: 10 ml Furosemide 40 mg PO DAILY 11/03/17 Meloxicam 7.5 mg PO BID 11/03/17 Metoprolol Succinate 25 mg PO BID 11/03/17 Mometasone/Formoterol [Dulera 200 Mcg/5 Mcg Inhaler] 1 puffs INH BID PRN amLODIPine [Norvasc] 10 mg PO DAILY 11/03/17 Objective - Vital Signs/Intake & Output Reviewed Vital Signs: Yes Vital Signs: Vital Signs x48h Temp Pulse Resp BP Pulse Ox 03/29/18 13:32 36.3 C L 54 L 19 131/60 H 96 03/29/18 08:00 36.5 C 71 18 140/65 H 97 Intake & Output: Intake & Output 03/26/18 03/27/18 03/28/18 03/29/18 23:59 23:59 23:59 23:59 Intake Total 250 460 Output Total 500 1250 Balance -250 -790 - Objective General Appearance: positive: No acute distress, Alert. negative: Lethargic Eyes Bilateral: positive: Normal inspection, PERRL, No lid inflammation, Conjunctivae nml ENT: positive: ENT inspection nml, Pharynx nml, No signs of dehydration. negative: Oral lesions, Dry mucous membranes, Other Neck: positive: Nml inspection, Thyroid nml, No JVD, Trachea midline. negative : Thyromegaly, Lymphadenopathy (R), Lymphadenopathy (L), Stiff neck, Carotid bruit, Swelling/bruising, Tracheal deviation Respiratory: positive: Chest non-tender, No respiratory distress, Breath sounds nml. negative: Wheezes, Rales, Rhonchi Cardiovascular: positive: Regular rate & rhythm, No murmur, No gallop, Bradycardia. negative: Irregularly irregular, Extrasystoles, Tachycardia, JVD present, Systolic murmur, Diastolic murmur Peripheral Pulses: 2+ Radial (R), 2+ Radial (L), 2+ Dorsalis pedis (R), 2+ Dorsalis pedis (L) Abdomen: positive: Non-tender, No organomegaly, Nml bowel sounds, No distention. negative: Tenderness, Guarding, Rebound Back: positive: Nml inspection Skin: positive: Color nml, No rash, Warm, Dry. negative: Cyanosis, Diaphoresis , Pallor Extremities: positive: Non-tender. negative: Calf tenderness, Joint swelling, Jensen's sign/cords Neurologic/Psychiatric: negative: Facial droop, Slurred/abnml speech - Lab Results Fish Bones: 03/29/18 04:35 03/29/18 04:35 Other Labs: Lab Results x24hrs 03/29/18 03/29/18 Range/Units 04:35 04:35 WBC 14.7 H (4.8-10.8) x10^3/uL RBC 4.75 (4.20-5.40) 10^6/uL Hgb 14.8 (12.0-16.0) g/dL Hct 43.5 (37.0-47.0) % MCV 91.5 (81.0-99.0) fL MCH 31.2 H (27.0-31.0) pg MCHC 34.1 (32.0-36.0) g/dL RDW 14.1 (12.0-15.0) % Plt Count 234 (130-450) 10^3/uL MPV 7.7 L (7.9-10.8) fL Neut # (Auto) 10.3 H (1.5-6.6) 10^3/uL Lymph # (Auto) 1.6 (1.5-3.5) 10^3/uL [place] # (Auto) 1.8 H (0.0-1.0) 10^3/uL Eos # (Auto) 0.9 H (0.0-0.7) 10^3/uL Baso # (Auto) 0.1 (0.0-0.1) 10^3/uL Absolute Nucleated RBC 0.00 x10^3/uL Nucleated RBC % 0.0 /100WBC Sodium 139 (135-145) mmol/L Potassium 4.1 (3.5-5.0) mmol/L Chloride 104 (101-111) mmol/L Carbon Dioxide 26 (21-32) mmol/L Anion Gap 9.0 (6-13) BUN 37 H (6-20) mg/dL Creatinine 1.4 H (0.4-1.0) mg/dL Estimated GFR (MDRD) 36 L (>89) Glucose 102 H (70-100) mg/dL Calcium 9.3 (8.5-10.3) mg/dL Magnesium 2.2 (1.7-2.8) mg/dL Total Bilirubin 0.7 (0.2-1.0) mg/dL AST 18 (10-42) IU/L ALT 12 (10-60) IU/L Alkaline Phosphatase 57 (42-121) IU/L Total Protein 7.4 (6.7-8.2) g/dL Albumin 3.6 (3.2-5.5) g/dL Globulin 3.8 (2.1-4.2) g/dL Albumin/Globulin Ratio 0.9 L (1.0-2.2) ABX Reporting Has patient been on IV antibiotics over the past 48 hours?: Yes Assessment/Plan - Problem List (1) UTI (urinary tract infection) Impression: Conclusion/Plan: 03/29 pt's family just talked with administrator social welfare, state pt had UTI since she is childhood, and continue to have UTI for many times. [facility] does not have pt's previous UA culture study, and pt's WBC is going up switch Rocephin to Erapenem follow up UA UA reveals UTI, it may be the cause of AMS UA culture, will follow up Rocephin (2) Altered mental status Conclusion/Plan: family report pt more agitated and restless recently, UA reveals UTI, it may the cause. CT of head without acute findings. pt is with hx of advanced dementia , aphasia. Pt need total care. treat underline UTI with rocephin neuro check, on tele (3) Physical deconditioning Conclusion/Plan: family report pt's medical condition recently declined significantly, and physical deconditioning. pt has been on palliative, and with hx of advanced dementia continue support (4) Dementia Conclusion/Plan: advanced, aphasia, pt need total care. Pt's four children has been taking care of pt, and request d/c home after pt's stable. (5) HTN (hypertension) Conclusion/Plan: stable, continue home meds (6) COPD (chronic obstructive pulmonary disease) Conclusion/Plan: pt has been 3 liter O2 at home, O2 dependence. Now is 96% sats on 3 liter of O2. pt is stable. continue home meds, Duoneb, albuterol PRN continue O2 supplement (7) CKD (chronic kidney disease) Conclusion/Plan: 03/29 creatinine remain the same. pt present dehydration, dry mouth, and ask nurse for more drinking of water start NS at 75 cc/h pt has slight elevated creatinine but pt has pulmonary edema shown at CXR today , clinic hypoxia and SOB at home. hold IVF of NS avoid nephrotoxin agents lab monitor (8) Pulmonary edema Conclusion/Plan: 03/29, remain the same Sats 96% on 3 liter as the home setting. No cough, fever. CXR reveals pulmonary edema, pt presented SOB, hypoxia at home per pt's daughter reports. home PO Lasix to IV Lasix check ECHO, will follow up (9) episode of VT two episode of VT on last night. There is no more VT after that, uncertain etiology. troponin is negative, EKG and ECHO are pending pt is DNR status, on palliative care continue tele, vital monitor continue beta-ruthie pt has no blood thinner at home meds. pt is now with DVT prophylaxis (10) dehydration present dry mouth, drink lots of water per nurse report, also nurse report she had one episode of vomiting of meds start NS 75 cc/h, will follow ECHO to determine if continue or slight increase daily lab, vital monitor
[2018-03-29] MEDS: ERTAPENEM 1 GM in SODIUM CHLORIDE 0.9% MINIBAG 100 ML IV SCH (15:49)
[2018-03-29] MEDS: ZINC OXIDE 20% OINT 28.35 GM TUBE TOP PRN (15:50)
[2018-03-29] MEDS ORDERED: SODIUM CHLORIDE 0.9% 1,000 ML IV SCH (16:00)
[2018-03-30] MEDS: SODIUM CHLORIDE FLUSH 0.9% 10 ML SYRINGE IVP SCH ×3 (01:15→16:19)
[2018-03-30 05:58] LABS: ALBUMIN 3.1 g/dL (3.2-5.5); ALBUMIN/GLOBULIN RATIO 0.9 (1.0-2.2); BILIRUBIN,TOTAL 0.4 mg/dL (0.2-1.0); CALCIUM 8.6 mg/dL (8.5-10.3); CREATININE 1.7 mg/dL (0.4-1.0); TOTAL PROTEIN 6.6 g/dL (6.7-8.2)
[2018-03-30 06:24] LABS: BASOPHILS # (AUTO) 0.1 10^3/uL (0.0-0.1); BASOPHILS % (AUTO) 0.9 %; EOSINOPHILS % (AUTO) 7.6 %; HGB - HEMOGLOBIN 13.8 g/dL (12.0-16.0); MEAN CORPUSCULAR HEMOGLOBIN 31.4 pg (27.0-31.0); MEAN CORPUSCULAR HGB CONC 33.5 g/dL (32.0-36.0); MEAN CORPUSCULAR VOLUME 93.7 fL (81.0-99.0); MEAN PLATELET VOLUME 8.6 fL (7.9-10.8); MONOCYTES # (AUTO) 1.7 10^3/uL (0.0-1.0); MONOCYTES % (AUTO) 12.3 %; NEUTROPHILS # (AUTO) 8.7 10^3/uL (1.5-6.6); NEUTROPHILS % (AUTO) 64.2 %; PLT - PLATELET COUNT 199 10^3/uL (130-450); RED CELL DISTRIBUTION WIDTH 14.3 % (12.0-15.0); WHITE BLOOD COUNT 13.6 x10^3/uL (4.8-10.8)
[2018-03-30 06:26] LABS: DIFFERENTIAL COMMENT MANUAL=AUTO DIFF; PLATELET ESTIMATE, MANUAL NORMAL (130-450,000) (NORMAL); PLATELET MORPHOLOGY NORMAL APPEARANCE (NORMAL); RBC MORPHOLOGY (MULTIPLE) NORMAL APPEARANCE (NORMAL)
[2018-03-30] MEDS ORDERED: cloNIDine 0.1 MG TABLET PO PRN (07:46)
[2018-03-30] MEDS ORDERED: SODIUM CHLORIDE 0.9% 1,000 ML IV SCH (08:00)
[2018-03-30] MEDS: FUROSEMIDE 20 MG TABLET PO SCH ×2 (08:52→16:19)
[2018-03-30] MEDS: amLODIPine 5 MG TABLET PO SCH (08:52)
[2018-03-30] MEDS: METOPROLOL SUCCINATE 25 MG TABLET PO SCH ×2 (08:52→21:13)
[2018-03-30] MEDS: FAMOTIDINE 20 MG TABLET PO SCH (08:52)
[2018-03-30] MEDS: POLYETHYLENE GLYCOL 3350 17 GM PACKET PO SCH (08:53)
[2018-03-30] MEDS: ENOXAPARIN 30 MG/0.3 ML SYRINGE SUBQ SCH (08:53)
[2018-03-30] MEDS ORDERED: SODIUM CHLORIDE FLUSH 0.9% 10 ML SYRINGE ONE (09:25)
--- NOTE | 2018-03-30 10:12 | PROVIDER PROGRESS NOTE ---
Subjective - Prog Note Date Prog Note Date: 03/30/18 - Subjective Pt reports feeling: Improved Subjective: today pt is comfortable siting the chair to eat breakfast. Pt talks with me and asks me the breakfast she likes to have, then Pt has the breakfast she like to have. It is great improvement for her to have conversation and interaction with us. Pt has hx of advanced dementia. Pt denies other complaints. Current Medications - Current Medications Current Medications: Active Medications Acetaminophen (Tylenol) 650 mg PO Q4HR PRN PRN Reason: Pain 1 to 4 Albuterol () 2.5 mg INH RTQ4H PRN PRN Reason: Wheezing Albuterol/Ipratropium (Duoneb) 3 ml INH RTQ4H PRN PRN Reason: Wheezing Amlodipine Besylate (Norvasc) 10 mg PO DAILY [facility] Last Admin: 03/30/18 08:52 Dose: 10 mg Clonidine HCl (Catapres) 0.1 mg PO BID PRN PRN Reason: Hypertensive Emergency Enoxaparin Sodium (Lovenox) 30 mg SUBQ DAILY [facility] Last Admin: 03/30/18 08:53 Dose: 30 mg Famotidine (Pepcid) 20 mg PO DAILY [facility] Last Admin: 03/30/18 08:52 Dose: 20 mg Furosemide (Lasix) 20 mg PO BIDDIURETIC [facility] Last Admin: 03/30/18 08:52 Dose: 20 mg Ertapenem 1 gm/ Sodium (Chloride) 100 mls @ 200 mls/hr IV Q24H [facility] Last Infusion: 03/29/18 16:32 Dose: Infused Sodium Chloride (Normal Saline 0.9%) 1,000 mls @ 50 mls/hr IV .Q20H [facility] Stop: 03/31/18 03:59 Last Admin: 03/30/18 09:18 Dose: 50 mls/hr Metoprolol Succinate (Toprol Xl) 25 mg PO BID [facility] Last Admin: 03/30/18 08:52 Dose: 25 mg Multi-Ingredient Ointment (Zinc Oxide) 1 applic TOP PRN PRN PRN Reason: Skin Care Last Admin: 03/29/18 15:50 Dose: 1 applic Ondansetron HCl (Zofran Inj) 4 mg IVP Q6HR PRN PRN Reason: Nausea / Vomiting Polyethylene Glycol (Miralax) 17 gm PO DAILY [facility] Last Admin: 03/30/18 08:53 Dose: 17 gm Sodium Chloride (Normal Saline Flush 0.9%) 10 ml IVP PRN PRN PRN Reason: NEEDED PER PROVIDER ORDERS Sodium Chloride (Normal Saline Flush 0.9%) 10 ml IVP 0100,0900,1700 [facility] Last Admin: 03/30/18 09:22 Dose: 10 ml Furosemide 40 mg PO DAILY 11/03/17 Meloxicam 7.5 mg PO BID 11/03/17 Metoprolol Succinate 25 mg PO BID 11/03/17 Mometasone/Formoterol [Dulera 200 Mcg/5 Mcg Inhaler] 1 puffs INH BID PRN amLODIPine [Norvasc] 10 mg PO DAILY 11/03/17 Objective - Vital Signs/Intake & Output Reviewed Vital Signs: Yes Vital Signs: Vital Signs x48h Temp Pulse Resp BP Pulse Ox 03/30/18 08:00 36.6 C 61 18 131/47 H 92 03/30/18 03:02 36.6 C 55 L 16 168/85 H 94 Intake & Output: Intake & Output 03/27/18 03/28/18 03/29/18 03/30/18 23:59 23:59 23:59 23:59 Intake Total 250 1260 1150 Output Total 500 1300 600 Balance -250 -40 550 - Objective General Appearance: positive: No acute distress, Alert. negative: Lethargic Eyes Bilateral: positive: Normal inspection, PERRL, No lid inflammation, Conjunctivae nml ENT: positive: ENT inspection nml, Pharynx nml, No signs of dehydration. negative: Purulent nasal drainage, Pharyngeal erythema, Oral lesions Neck: positive: Nml inspection, Thyroid nml, No JVD, Trachea midline. negative : Thyromegaly, Lymphadenopathy (R), Lymphadenopathy (L), Stiff neck, Carotid bruit, Swelling/bruising, Tracheal deviation Respiratory: positive: Chest non-tender, No respiratory distress, Breath sounds nml. negative: Wheezes, Rales, Rhonchi Cardiovascular: positive: Regular rate & rhythm, No murmur, No gallop. negative : Irregularly irregular, Extrasystoles, Tachycardia, Bradycardia, JVD present, Systolic murmur, Diastolic murmur Peripheral Pulses: 2+ Radial (R), 2+ Radial (L), 2+ Dorsalis pedis (R), 2+ Dorsalis pedis (L) Abdomen: positive: Non-tender, No organomegaly, Nml bowel sounds, No distention. negative: Tenderness, Guarding, Rebound Back: positive: Nml inspection. negative: CVA tenderness (R), CVA tenderness (L ) Skin: positive: Color nml, No rash, Warm, Dry. negative: Cyanosis, Diaphoresis , Pallor Extremities: positive: Non-tender, Full ROM, Nml appearance. negative: Calf tenderness, Joint swelling, Jensen's sign/cords Neurologic/Psychiatric: positive: Sensation nml, Mood/affect nml. negative: Weakness, Sensory loss, Facial droop, Slurred/abnml speech, Depressed mood/ affect - Lab Results Fish Bones: 03/30/18 05:15 03/30/18 05:15 Other Labs: Lab Results x24hrs 03/30/18 03/30/18 Range/Units 05:15 05:15 WBC 13.6 H (4.8-10.8) x10^3/uL RBC 4.40 (4.20-5.40) 10^6/uL Hgb 13.8 (12.0-16.0) g/dL Hct 41.2 (37.0-47.0) % MCV 93.7 (81.0-99.0) fL MCH 31.4 H (27.0-31.0) pg MCHC 33.5 (32.0-36.0) g/dL RDW 14.3 (12.0-15.0) % Plt Count 199 (130-450) 10^3/uL MPV 8.6 (7.9-10.8) fL Neut # (Auto) 8.7 H (1.5-6.6) 10^3/uL Lymph # (Auto) 2.0 (1.5-3.5) 10^3/uL [place] # (Auto) 1.7 H (0.0-1.0) 10^3/uL Eos # (Auto) 1.0 H (0.0-0.7) 10^3/uL Baso # (Auto) 0.1 (0.0-0.1) 10^3/uL Absolute Nucleated RBC 0.02 x10^3/uL Band Neuts % (Manual) Not Reportable Abnorm Lymph % (Manual) Not Reportable Nucleated RBC % 0.1 /100WBC Neutrophils # (Manual) Not Reportable Lymphocytes # (Manual) Not Reportable Monocytes # (Manual) Not Reportable Eosinophils # (Manual) Not Reportable Basophils # (Manual) Not Reportable Differential Comment MANUAL=AUTO DIFF Platelet Estimate NORMAL (130-450,000) (NORMAL) Platelet Morphology NORMAL APPEARANCE (NORMAL) RBC Morph Micro Appear NORMAL APPEARANCE (NORMAL) Sodium 134 L (135-145) mmol/L Potassium 4.3 (3.5-5.0) mmol/L Chloride 100 L (101-111) mmol/L Carbon Dioxide 27 (21-32) mmol/L Anion Gap 7.0 (6-13) BUN 40 H (6-20) mg/dL Creatinine 1.7 H (0.4-1.0) mg/dL Estimated GFR (MDRD) 29 L (>89) Glucose 96 (70-100) mg/dL Calcium 8.6 (8.5-10.3) mg/dL Total Bilirubin 0.4 (0.2-1.0) mg/dL AST 17 (10-42) IU/L ALT 14 (10-60) IU/L Alkaline Phosphatase 44 (42-121) IU/L Total Protein 6.6 L (6.7-8.2) g/dL Albumin 3.1 L (3.2-5.5) g/dL Globulin 3.5 (2.1-4.2) g/dL Albumin/Globulin Ratio 0.9 L (1.0-2.2) ABX Reporting Has patient been on IV antibiotics over the past 48 hours?: Yes Assessment/Plan - Problem List (1) UTI (urinary tract infection) Impression: Impression: 03/30 WBC is going down. UA reveals no bacterial growth suprisely. continue antibiotics 03/29 pt's family just talked with executive secretary social welfare, state pt had UTI since she is childhood, and continue to have UTI for many times[facility], and pt's WBC is going up switch Rocephin to Erapenem follow up UA UA reveals UTI, it may be the cause of AMS UA culture, will follow up Rocephin (2) Altered mental status Conclusion/Plan: today pt has great improvement, she has conversation and interaction with staff and me. pt is sitting the chair. continue oriented to pt tele and neuro check family report pt more agitated and restless recently, UA reveals UTI, it may the cause. CT of head without acute findings. pt is with hx of advanced dementia , aphasia. Pt need total care. treat underline UTI with rocephin neuro check, on tele (3) Physical deconditioning Conclusion/Plan: family report pt's medical condition recently declined significantly, and physical deconditioning. pt has been on palliative, and with hx of advanced dementia continue support (4) Dementia Conclusion/Plan: advanced, aphasia, pt need total care. Pt's four children has been taking care of pt, and request d/c home after pt's stable. (5) HTN (hypertension) Conclusion/Plan: stable, continue home meds (6) COPD (chronic obstructive pulmonary disease) Conclusion/Plan: pt has been 3 liter O2 at home, O2 dependence. Now is 96% sats on 3 liter of O2. pt is stable. continue home meds, Duoneb, albuterol PRN continue O2 supplement (7) CKD (chronic kidney disease) Conclusion/Plan: 03/30, slight worsen than before. Switch IV Lasix to PO gently hydration with pt lab and vital monitor 03/29 creatinine remain the same. pt present dehydration, dry mouth, and ask nurse for more drinking of water start NS at 75 cc/h pt has slight elevated creatinine but pt has pulmonary edema shown at CXR today , clinic hypoxia and SOB at home. hold IVF of NS avoid nephrotoxin agents lab monitor (8) Pulmonary edema Conclusion/Plan: 03/30no shortness of breath, O2 sats as her baseline, no cough, fever. continue O2 supplement 03/29, remain the same Sats 96% on 3 liter as the home setting. No cough, fever. CXR reveals pulmonary edema, pt presented SOB, hypoxia at home per pt's daughter reports. home PO Lasix to IV Lasix check ECHO, will follow up (9) episode of VT 03/30 resolved, no more continue tele, vital monitor two episode of VT on last night. There is no more VT after that, uncertain etiology. troponin is negative, EKG and ECHO are pending pt is DNR status, on palliative care continue tele, vital monitor continue beta-ruthie pt has no blood thinner at home meds. pt is now with DVT prophylaxis (10) dehydration 03/30 slight increase of creatinine gently hydration lab and vital monitor present dry mouth, drink lots of water per nurse report, also nurse report she had one episode of vomiting of meds start NS 75 cc/h, will follow ECHO to determine if continue or slight increase daily lab, vital monitor
[2018-03-30] MEDS: ERTAPENEM 1 GM in SODIUM CHLORIDE 0.9% MINIBAG 100 ML IV SCH (16:19)
[2018-03-30] MEDS: ZINC OXIDE 20% OINT 28.35 GM TUBE TOP PRN (16:42)
[2018-03-31] MEDS: FUROSEMIDE 20 MG TABLET PO SCH ×2 (05:50→14:33)
[2018-03-31 05:53] LABS: ALBUMIN 3.1 g/dL (3.2-5.5); ALBUMIN/GLOBULIN RATIO 0.9 (1.0-2.2); BILIRUBIN,TOTAL 0.6 mg/dL (0.2-1.0); CALCIUM 8.8 mg/dL (8.5-10.3); CREATININE 1.3 mg/dL (0.4-1.0); TOTAL PROTEIN 6.4 g/dL (6.7-8.2)
[2018-03-31 05:54] LABS: BASOPHILS # (AUTO) 0.1 10^3/uL (0.0-0.1); BASOPHILS % (AUTO) 0.7 %; EOSINOPHILS # (AUTO) 0.9 10^3/uL (0.0-0.7); EOSINOPHILS % (AUTO) 6.7 %; HGB - HEMOGLOBIN 13.2 g/dL (12.0-16.0); LYMPHOCYTES # (AUTO) 1.5 10^3/uL (1.5-3.5); LYMPHOCYTES % (AUTO) 11.4 %; MEAN CORPUSCULAR HEMOGLOBIN 30.9 pg (27.0-31.0); MEAN CORPUSCULAR HGB CONC 32.7 g/dL (32.0-36.0); MEAN CORPUSCULAR VOLUME 94.4 fL (81.0-99.0); MONOCYTES # (AUTO) 1.6 10^3/uL (0.0-1.0); MONOCYTES % (AUTO) 12.1 %; NEUTROPHILS # (AUTO) 9.3 10^3/uL (1.5-6.6); NEUTROPHILS % (AUTO) 69.1 %; PLT - PLATELET COUNT 216 10^3/uL (130-450); RED BLOOD COUNT 4.26 10^6/uL (4.20-5.40); RED CELL DISTRIBUTION WIDTH 14.3 % (12.0-15.0); WHITE BLOOD COUNT 13.4 x10^3/uL (4.8-10.8)
[2018-03-31] MEDS: SODIUM CHLORIDE FLUSH 0.9% 10 ML SYRINGE IVP SCH ×3 (06:36→16:11)
[2018-03-31] MEDS: amLODIPine 5 MG TABLET PO SCH (08:02)
[2018-03-31] MEDS: ACETAMINOPHEN 325 MG TABLET PO PRN ×2 (08:02→16:19)
[2018-03-31] MEDS: FAMOTIDINE 20 MG TABLET PO SCH (08:03)
[2018-03-31] MEDS: POLYETHYLENE GLYCOL 3350 17 GM PACKET PO SCH ×2 (08:03→14:29)
[2018-03-31] MEDS: ENOXAPARIN 30 MG/0.3 ML SYRINGE SUBQ SCH (08:03)
[2018-03-31] MEDS: METOPROLOL SUCCINATE 25 MG TABLET PO SCH ×2 (08:03→20:20)
--- NOTE | 2018-03-31 12:14 | PROVIDER PROGRESS NOTE ---
Subjective - Prog Note Date Prog Note Date: 03/31/18 Prog Note Time: 12:14 - Subjective Pt reports feeling: No change Subjective: Diana complains of left axilla discomfort and states that "it happened while turning in bed with staff yesterday", otherwise no other complaints. She denies SOB, chest pain, N/V or a new cough. Current Medications - Current Medications Current Medications: Active Medications Acetaminophen (Tylenol) 650 mg PO Q4HR PRN PRN Reason: Pain 1 to 4 Last Admin: 03/31/18 08:02 Dose: 650 mg Albuterol () 2.5 mg INH RTQ4H PRN PRN Reason: Wheezing Albuterol/Ipratropium (Duoneb) 3 ml INH RTQ4H PRN PRN Reason: Wheezing Citalopram Hydrobromide (Celexa) 10 mg PO DAILY [facility] Clonidine HCl (Catapres) 0.1 mg PO BID PRN PRN Reason: Hypertensive Emergency Enoxaparin Sodium (Lovenox) 30 mg SUBQ DAILY [facility] Last Admin: 03/31/18 08:03 Dose: 30 mg Famotidine (Pepcid) 20 mg PO DAILY [facility] Last Admin: 03/31/18 08:03 Dose: 20 mg Furosemide (Lasix) 20 mg PO BIDDIURETIC [facility] Last Admin: 03/31/18 05:50 Dose: 20 mg Ertapenem 1 gm/ Sodium (Chloride) 100 mls @ 200 mls/hr IV Q24H [facility] Last Infusion: 03/30/18 17:30 Dose: Infused Metoprolol Succinate (Toprol Xl) 25 mg PO BID [facility] Last Admin: 03/31/18 08:03 Dose: 25 mg Multi-Ingredient Ointment (Zinc Oxide) 1 applic TOP PRN PRN PRN Reason: Skin Care Last Admin: 03/30/18 16:42 Dose: 1 applic Ondansetron HCl (Zofran Inj) 4 mg IVP Q6HR PRN PRN Reason: Nausea / Vomiting Polyethylene Glycol (Miralax) 17 gm PO DAILY [facility] Last Admin: 03/31/18 08:03 Dose: 17 gm Sodium Chloride (Normal Saline Flush 0.9%) 10 ml IVP PRN PRN PRN Reason: NEEDED PER PROVIDER ORDERS Sodium Chloride (Normal Saline Flush 0.9%) 10 ml IVP 0100,0900,1700 [facility] Last Admin: 03/31/18 08:03 Dose: 10 ml Spironolactone (Aldactone) 12.5 mg PO BID [facility] Furosemide 40 mg PO DAILY 11/03/17 Meloxicam 7.5 mg PO BID 11/03/17 Metoprolol Succinate 25 mg PO BID 11/03/17 Mometasone/Formoterol [Dulera 200 Mcg/5 Mcg Inhaler] 1 puffs INH BID PRN amLODIPine [Norvasc] 10 mg PO DAILY 11/03/17 Objective - Vital Signs/Intake & Output Reviewed Vital Signs: Yes Vital Signs: Vital Signs x48h Temp Pulse Pulse Resp BP Pulse Ox 03/31/18 09:26 36.7 C 66 18 138/99 H 98 03/31/18 09:00 65 20 Intake & Output: Intake & Output 03/28/18 03/29/18 03/30/18 03/31/18 23:59 23:59 23:59 23:59 Intake Total 250 1260 2030 1180 Output Total 500 1300 1050 Balance -250 -40 980 1180 - Objective General Appearance: positive: No acute distress, Alert Eyes Bilateral: positive: Normal inspection Eyes: OU Conjunctivae pale, OU Scleral icterus ENT: positive: ENT inspection nml, Pharynx nml, Pharyngeal erythema, Dry mucous membranes Neck: positive: Nml inspection, No JVD Respiratory: positive: Chest non-tender, Wheezes, Rales Cardiovascular: positive: No gallop, Irregularly irregular, Systolic murmur, Decreased pulse(s) Peripheral Pulses: 1+ Radial (R), 1+ Radial (L) Abdomen: positive: Non-tender, Nml bowel sounds, Other (rounded, soft) Back: positive: Nml inspection Skin: positive: No rash, Warm, Dry, Other (pale) Extremities: positive: Non-tender, Pedal edema (chronic, BLE trace.), Joint swelling Neurologic/Psychiatric: positive: Disoriented to time, Weakness, Sensory loss, Depressed mood/affect, Other (sluggish) Reflexes: Bicep (R): 2+, Bicep (L): 3+ - Lab Results Fish Bones: 03/31/18 05:21 03/31/18 05:21 Other Labs: Lab Results x24hrs 03/31/18 03/31/18 03/31/18 Range/Units 05:21 05:21 05:21 WBC 13.4 H (4.8-10.8) x10^3/uL RBC 4.26 (4.20-5.40) 10^6/uL Hgb 13.2 (12.0-16.0) g/dL Hct 40.2 (37.0-47.0) % MCV 94.4 (81.0-99.0) fL MCH 30.9 (27.0-31.0) pg MCHC 32.7 (32.0-36.0) g/dL RDW 14.3 (12.0-15.0) % Plt Count 216 (130-450) 10^3/uL MPV 8.0 (7.9-10.8) fL Neut # (Auto) 9.3 H (1.5-6.6) 10^3/uL Lymph # (Auto) 1.5 (1.5-3.5) 10^3/uL [place]ler # (Auto) 1.6 H (0.0-1.0) 10^3/uL Eos # (Auto) 0.9 H (0.0-0.7) 10^3/uL Baso # (Auto) 0.1 (0.0-0.1) 10^3/uL Absolute Nucleated RBC 0.01 x10^3/uL Nucleated RBC % 0.1 /100WBC Sodium 138 (135-145) mmol/L Potassium 4.1 (3.5-5.0) mmol/L Chloride 104 (101-111) mmol/L Carbon Dioxide 27 (21-32) mmol/L Anion Gap 7.0 (6-13) BUN 31 H (6-20) mg/dL Creatinine 1.3 H (0.4-1.0) mg/dL Estimated GFR (MDRD) 39 L (>89) Glucose 102 H (70-100) mg/dL Calcium 8.8 (8.5-10.3) mg/dL Total Bilirubin 0.6 (0.2-1.0) mg/dL AST 19 (10-42) IU/L ALT 16 (10-60) IU/L Alkaline Phosphatase 50 (42-121) IU/L B-Natriuretic Peptide 103 H (5-100) pg/mL Total Protein 6.4 L (6.7-8.2) g/dL Albumin 3.1 L (3.2-5.5) g/dL Globulin 3.3 (2.1-4.2) g/dL Albumin/Globulin Ratio 0.9 L (1.0-2.2) - Diagnostic Imaging Diagnostic Imaging Results: positive: Final report reviewed ABX Reporting Has patient been on IV antibiotics over the past 48 hours?: Yes Assessment/Plan - Problem List (1) UTI (urinary tract infection) Impression: Upon admission the patient's WBCs were elevated at 11.7 and continued to increase until yesterday when her antibiotics were slightly adjusted. Today WBCs are 13.4, improved from yesterday. A urine sample was obtained in the ED and showed elevated WBCs >25, moderate bacteria, and so far the culture is NGTD. She has baseline altered mental status, but has had increased confusion as per family. Plan: Continue IV antibiotic of Ertapenum. Qualifiers: Urinary tract infection type: acute cystitis Hematuria presence: without hematuria Qualified Code(s): N30.00 - Acute cystitis without hematuria (2) Altered mental status Impression: The patient has baseline dementia, but also had increased confusion as per family, of which she lives with. This was likely due to dehydration and acute UTI. Plan: Continue to monitor. Qualifiers: Altered mental status type: transient alteration of awareness Qualified Code(s): R40.4 - Transient alteration of awareness (3) CKD (chronic kidney disease) Impression: The patient had a reduced GFR of 36, that is now improved to 39. She has a baseline creatinine of 1.1, that was slightly elevated at admission of 1.4, increased to 1.7, and now improved at 1.3. This was likely due to acute infection and the nephrotoxic agents used to treat her UTI. Plan: Hold meloxicam (NSAID), continue treatment of UTI, and monitor daily labs. Qualifiers: Chronic kidney disease stage: stage 3 (moderate) Qualified Code(s): N18.3 - Chronic kidney disease, stage 3 (moderate) (4) HTN (hypertension) Impression: The patient is prescribed norvasc, metoprolol, and furosemide at home. Based on her echocardiogram, with her LV hypertrophy, Norvasc is contraindicated. I have started scheduled Hydralazine TID with blood pressure parameters of hold if SBP is less than 100. Plan: Continue Spironolactone, furosemide, metoprolol and hydralazine. (5) Pulmonary hypertension Impression: An echocardiogram was completed and final results show mildly abnormal heart pressures with an RVSP at rest of 44 mmHg. She has a rounded, soft abdomen and trace BLE chronic edema. She denies a history of lung disease, although is a poor historian. Plan: Start BID Spironolactone and monitor vital signs. (6) Dementia Impression: Her disease is considered advanced and includes aphasia. 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 She requires 24 hour care and is thought to be bed-bound. She states "my children live with ME" when describing her living arrangements. She will likely return home upon discharge. Plan: Continue to monitor mental status and keep family updated. Qualifiers: Dementia type: vascular dementia
[2018-03-31] MEDS ORDERED: CITALOPRAM 10 MG TABLET PO SCH (13:00)
[2018-03-31] MEDS: SPIRONOLACTONE 25 MG TABLET PO SCH ×2 (14:33→21:25)
[2018-03-31] MEDS: hydrALAZINE 10 MG TABLET PO SCH ×2 (14:33→21:25)
[2018-03-31] MEDS: ERTAPENEM 1 GM in SODIUM CHLORIDE 0.9% MINIBAG 100 ML IV SCH (16:11)
[2018-04-01] MEDS: SODIUM CHLORIDE FLUSH 0.9% 10 ML SYRINGE IVP SCH ×2 (00:13→09:17)
[2018-04-01 05:28] LABS: BASOPHILS # (AUTO) 0.1 10^3/uL (0.0-0.1); BASOPHILS % (AUTO) 0.7 %; EOSINOPHILS # (AUTO) 1.2 10^3/uL (0.0-0.7); EOSINOPHILS % (AUTO) 9.1 %; HGB - HEMOGLOBIN 13.2 g/dL (12.0-16.0); LYMPHOCYTES # (AUTO) 1.9 10^3/uL (1.5-3.5); LYMPHOCYTES % (AUTO) 14.7 %; MEAN CORPUSCULAR HEMOGLOBIN 31.6 pg (27.0-31.0); MEAN CORPUSCULAR HGB CONC 34.2 g/dL (32.0-36.0); MEAN CORPUSCULAR VOLUME 92.6 fL (81.0-99.0); MEAN PLATELET VOLUME 7.9 fL (7.9-10.8); MONOCYTES # (AUTO) 1.7 10^3/uL (0.0-1.0); MONOCYTES % (AUTO) 12.8 %; NEUTROPHILS # (AUTO) 8.2 10^3/uL (1.5-6.6); NEUTROPHILS % (AUTO) 62.7 %; PLT - PLATELET COUNT 197 10^3/uL (130-450); RED BLOOD COUNT 4.18 10^6/uL (4.20-5.40); RED CELL DISTRIBUTION WIDTH 14.5 % (12.0-15.0); WHITE BLOOD COUNT 13.1 x10^3/uL (4.8-10.8)
[2018-04-01] MEDS: FUROSEMIDE 20 MG TABLET PO SCH (05:33)
[2018-04-01] MEDS: hydrALAZINE 10 MG TABLET PO SCH (05:33)
[2018-04-01 05:34] LABS: ALBUMIN 2.9 g/dL (3.2-5.5); ALBUMIN/GLOBULIN RATIO 0.9 (1.0-2.2); BILIRUBIN,TOTAL 0.7 mg/dL (0.2-1.0); CALCIUM 8.8 mg/dL (8.5-10.3); CREATININE 1.2 mg/dL (0.4-1.0); TOTAL PROTEIN 6.2 g/dL (6.7-8.2)
[2018-04-01] MEDS ORDERED: CITALOPRAM 10 MG TABLET PO SCH (08:00)
[2018-04-01] MEDS: ENOXAPARIN 30 MG/0.3 ML SYRINGE SUBQ SCH (09:15)
[2018-04-01] MEDS: SPIRONOLACTONE 25 MG TABLET PO SCH (09:16)
[2018-04-01] MEDS: POLYETHYLENE GLYCOL 3350 17 GM PACKET PO SCH (09:17)
[2018-04-01] MEDS: FAMOTIDINE 20 MG TABLET PO SCH (09:17)
[2018-04-01 09:19] VITALS: BP 119/68
--- NOTE | 2018-04-01 12:00 | Discharge Plan ---
Discharge Plan Disposition: Home, Self Care Prescriptions: Furosemide 20 mg PO DAILY #30 tablet levoFLOXacin [Levofloxacin] 500 mg PO DAILY 7 Days #7 tablet Saccharomyces Boulardii [Florastor] 250 mg PO BID 14 Days #28 capsule Spironolactone [Aldactone] 12.5 mg PO BID #30 tablet Diet: Regular Activity Restrictions: Activity as Tolerated Shower Restrictions: No Driving Restrictions: Yes Assistance Devices: Walker Additional Instructions or Follow Up instructions: You were admitted for a UTI and given antibiotics and changed to oral antibiotics to continue for the next 7 days (Levofloxacin). You should take a "yogurt" pill called lactobaccillis, or Florastor for double the time of the antibiotics. You should stop any Potassium that may have been prescribed in the past. You were found to have pulmonary hypertension via echocardiogram, and this is likely a result of your lung disease. You should continue to wear your oxygen, stay on your inhalers/nebulizers and start taking the Spironolactone for easier breathing and to reduce extra fluid in your abdomen caused by pulmonary hypertension. Please try to continue the beta ruthie (metoprolol) to be taken twice daily and the lasix (furosemide) to keep the fluid off your lungs. The lasix dose was adjusted due to adding spironolactone. You can stop the guafenisen and the antidepressant, Lexapro. Please see your PCP in the next week if you are able. No Smoking: If you smoke, Please STOP! Call for help. Follow-up with: Donnell Chaudhary MD [Primary Care Provider] -
--- NOTE | 2018-04-01 12:40 | DISCHARGE SUMMARY ---
Discharge Summary Admit Date: 03/28/18 Discharge Date: 04/01/18 Discharging Provider: MIGUEL Conway Primary Care Provider: Donnell Chaudhary Code Status: Do Not Attempt Resuscitation Condition at Discharge: Good Discharge Disposition: 01 Home, Self Care - DIAGNOSES Admission Diagnoses: Urinary tract infection, site not specified (N39.0) Altered mental status, unspecified (R41.82) Chronic kidney disease, stage 3 (moderate) (N18.3) Unspecified dementia without behavioral disturbance (F03.90) Rheumatoid arthritis, unspecified (M06.9) Essential (primary) hypertension (I10) Hyperlipidemia, unspecified (E78.5) Major depressive disorder, single episode, unspecified (F32.9) Other malaise (R53.81) Personal history of other diseases of the circulatory system (Z86.79) Discharge Diagnoses with Status of Each Condition: UTI (urinary tract infection) (N39.0) new on this admit, treatment to continue. Altered mental status (R41.82) improved since admission. CKD (chronic kidney disease) stage 3, GFR 30-59 ml/min (N18.3) chronic, stable. HTN (hypertension) (I10) chronic, stable. Mild pulmonary hypertension (I27.20) new on this admit, new medication prescribed. Dementia (F03.90) chronic stable. - HPI History of Present Illness: Claribel Kothari is 82-yrs-old female with a past medical history of hypertension, HLD, COPD, chronic shortness of breath, urinary incontinence, depression/anxiety, advanced dementia, chronic back, chronic vision loss, Rheumatoid arthritis, CKD, and chronic UTIs. The patient presented to the ED with complaints of altered mental status, although she has a history of advanced dementia with aphasia. The patient has 4 daughters and 2 of them were at the bedside during the H/P to assist with the admission. The note that their mother has had worsening dementia with little interaction over the past 5 or 6 months. In the past several days she has been more agitated and confused beyond her baseline and took her oxygen level that was only in the mid-80%. The patient is O2 dependent and wears 3 liters of O2 per nasal cannula. Since the patient's last hospitalization in October, she has "just not been the same " and continued to be deconditioning and more weak. The patient did receive physical therapy and home health aides for several weeks after discharge from [facility], and otherwise is cared for at home by her daughters. A head CT is without acute findings. A chest CXR shows pulmonary edema, UA shows UTI and the patient was found to have leukopenia with an elevated WBC count of 11.7. She will be admitted to inpatient for further treatment of her UTI. - HOSPITAL COURSE Hospital Course: The following diagnoses were prevalent during this hospital stay: (1) UTI (urinary tract infection) Upon admission the patient's WBCs were elevated at 11.7 and continued to increase until yesterday when her antibiotics were slightly adjusted. The patient's WBCs continued to increase and peaked at 14.7 and improved to 13.1 at the time of discharge. A urine sample was obtained in the ED and showed elevated WBCs >25, moderate bacteria, and so far the culture is NGTD. She has baseline altered mental status, but has had increased confusion as per family. The patient was continued on an IV antibiotic of Ertapenum that was changed to Levofloxacin with a probiotic for full treatment of this UTI. (2) Altered mental status The patient has baseline dementia, but also had increased confusion as per family, of which she lives with. This was likely due to dehydration and acute UTI. This is considered improved at the time of discharge. (3) CKD (chronic kidney disease) The patient had a reduced GFR of 36, that is now improved to 39. She has a baseline creatinine of 1.1, that was slightly elevated at admission of 1.4, increased to 1.7, and now improved at 1.3. This was likely due to acute infection and the nephrotoxic agents used to treat her UTI. The patient's home meloxicam (NSAID) was held for it's nephrotoxic potential. She was treated for her UTI, her daily labs were monitored. This is considered stable at the time of admission and her meloxicam was resumed. (4) HTN (hypertension) The patient is prescribed norvasc, metoprolol, and furosemide at home. Based on her echocardiogram, with her LV hypertrophy, Norvasc is contraindicated. I have started scheduled Hydralazine TID with blood pressure parameters of hold if SBP is less than 100. Continue Spironolactone, furosemide, metoprolol and hydralazine, which was continued at home. (5) Pulmonary hypertension An echocardiogram was completed and final results show mildly abnormal heart pressures with an RVSP at rest of 44 mmHg. She has a rounded, soft abdomen and trace BLE chronic edema. She denies a history of lung disease, although is a poor historian. The patient was started on BID Spironolactone and her vital signs were monitored. (6) Dementia Her disease is considered advanced and includes aphasia. Her hand student liaison officer is moderate with a slightly weaker right hand student liaison officer. She requires 24 hour care and is thought to be bed-bound. She states "my children live with ME" when describing her living arrangements. This is considered stable at the time of discharge. Disposition: I personally spoke to the patient's daughter on the phone to update her of the discharge plan. She was in stable condition and was transported home on her usual home oxygen. - ALLERGIES Allergies/Adverse Reactions: Allergies Allergy/AdvReac Type Severity Reaction Status Date / Time No Known Drug Allergies Allergy Verified 11/03/17 11:24 - MEDICATIONS Home Medications: Ambulatory Orders Medication Instructions Recorded Confirmed Meloxicam 7.5 mg PO BID 11/03/17 03/28/18 Metoprolol Succinate 25 mg PO BID 11/03/17 03/28/18 Mometasone/Formoterol [Dulera 200 1 puffs INH BID PRN 11/03/17 03/28/18 Mcg/5 Mcg Inhaler] Ipratropium/Albuterol [Duoneb] 3 ml INH Q4HR PRN #60 neb 11/06/17 03/28/18 Furosemide 20 mg PO DAILY #30 tablet 04/01/18 Saccharomyces Boulardii [Florastor] 250 mg PO BID 20 Days #40 capsule 04/01/18 Spironolactone [Aldactone] 25 mg PO BID #30 tablet 04/01/18 levoFLOXacin [Levofloxacin] 500 mg PO DAILY 10 Days #10 tablet 04/01/18 - PHYSICAL EXAM AT DISCHARGE General Appearance: positive: No acute distress, Alert Eyes Bilateral: positive: Normal inspection, PERRL ENT: positive: ENT inspection nml, Pharynx nml, No signs of dehydration Neck: positive: Nml inspection, Thyroid nml, No JVD Respiratory: positive: Chest non-tender, No respiratory distress, Other ( diminshed.) Cardiovascular: positive: Regular rate & rhythm, No gallop, Systolic murmur Peripheral Pulses: positive: 2+ Abdomen: positive: Non-tender, Nml bowel sounds Back: positive: Nml inspection Skin: positive: No rash, Warm, Dry Extremities: positive: Non-tender, Pedal edema, Joint swelling Neurologic/Psychiatric: positive: Disoriented to place, Disoriented to time, Weakness, Sensory loss, Depressed mood/affect Reflexes: Bicep (R): 2+, Bicep (L): 2+ - LABS Result Diagrams: 04/01/18 04:55 04/01/18 04:55 - DIAGNOSTIC IMAGING Diagnostic Imaging Results: Final report reviewed Diagnostic Imaging Results Comments: EXAM: CHEST RADIOGRAPHY EXAM DATE: 03/28/2018 12:06 PM. IMPRESSION: 1. Diffuse interval increase in interstitial and hazy airspace opacities. In the setting of cardiomegaly and calcified atherosclerosis, pulmonary edema is a consideration. Other causes of increased opacity including infection is not excluded. Clinical correlation is needed. Follow-up is recommended to assess resolution. If indicated clinically, CT could also be considered for further assessment. 2. Exam otherwise as above. EXAM: CT HEAD EXAM DATE: 03/28/2018 12:20 PM. IMPRESSION: 1. Cortical atrophy and relatively extensive chronic small vessel ischemic changes in deep white matter bilaterally. No associated positive mass effect or loss of darby-white differentiation is seen to suggest acute or subacute stroke or underlying mass. No hemorrhage. 2. Ventriculomegaly not disproportionate to the degree of volume loss and white matter disease. No hydrocephalus. 3. Examination otherwise as detailed above. - FOLLOW UP Follow Up: Disposition: 01 Home, Self Care Prescriptions: Furosemide 20 mg PO DAILY #30 tablet levoFLOXacin [Levofloxacin] 500 mg PO DAILY 7 Days #7 tablet Saccharomyces Boulardii [Florastor] 250 mg PO BID 14 Days #28 capsule Spironolactone [Aldactone] 12.5 mg PO BID #30 tablet Diet: Regular Activity Restrictions: Activity as Tolerated Shower Restrictions: No Driving Restrictions: Yes Assistance Devices: Walker Additional Instructions or Follow Up instructions: You were admitted for a UTI and given antibiotics and changed to oral antibiotics to continue for the next 7 days (Levofloxacin). You should take a "yogurt" pill called lactobaccillis, or Florastor for double the time of the antibiotics. You should stop any Potassium that may have been prescribed in the past. You were found to have pulmonary hypertension via echocardiogram, and this is likely a result of your lung disease. You should continue to wear your oxygen, stay on your inhalers/nebulizers and start taking the Spironolactone for easier breathing and to reduce extra fluid in your abdomen caused by pulmonary hypertension. Please try to continue the beta ruthie (metoprolol) to be taken twice daily and the lasix (furosemide) to keep the fluid off your lungs. The lasix dose was adjusted due to adding spironolactone. You can stop the guafenisen and the antidepressant, Lexapro. Please see your PCP in the next week if you are able. - TIME SPENT Time Spent in Discharge (Minutes): 60
== END 2018-04-01 14:45 | disposition home or self-care (01) | DRG 690 ==
LOC: EDUNIT# → ED 09:52 → MS3 15:06
PROVIDERS: ADMIT Nurse Practitioner Gerontology; ATTEND Nurse Practitioner
DX: N30.00 Acute cystitis without hematuria (principal); R41.0 Disorientation, unspecified; F03.90 Unspecified dementia, unspecified severity, without behavioral disturbance, psychotic disturbance, mood disturbance, and anxiety; R40.2412 Glasgow coma scale score 13-15, at arrival to emergency department; I10 Essential (primary) hypertension; J81.1 Chronic pulmonary edema; F17.200 Nicotine dependence, unspecified, uncomplicated; R47.01 Aphasia; I47.2 Ventricular tachycardia; E78.00 Pure hypercholesterolemia, unspecified; E86.0 Dehydration; R11.10 Vomiting, unspecified; R40.4 Transient alteration of awareness; R09.02 Hypoxemia; I13.10 Hypertensive heart and chronic kidney disease without heart failure, with stage 1 through stage 4 chronic kidney disease, or unspecified chronic kidney disease; N18.3 Chronic kidney disease, stage 3 (moderate); F01.50 Vascular dementia, unspecified severity, without behavioral disturbance, psychotic disturbance, mood disturbance, and anxiety; M06.9 Rheumatoid arthritis, unspecified; E78.5 Hyperlipidemia, unspecified; F32.9 Major depressive disorder, single episode, unspecified; I27.23 Pulmonary hypertension due to lung diseases and hypoxia; J44.9 Chronic obstructive pulmonary disease, unspecified; F41.9 Anxiety disorder, unspecified; Z66 Do not resuscitate; Z51.5 Encounter for palliative care; Z79.899 Other long term (current) drug therapy; Z99.81 Dependence on supplemental oxygen; Z74.01 Bed confinement status; Z79.1 Long term (current) use of non-steroidal anti-inflammatories (NSAID)
CPT/HCPCS: 36415; 51701; 70450; 71045; 80053; 81001; 81003; 82550; 83605; 83690; 83735; 83880; 84443; 84484; 85025; 87086; 93005; 93306; 96365; 99283; 99284; 99285

== ENCOUNTER 2018-04-01 14:54 | Outpatient (CLI) | payer MEDICARE, OTHER | END 2018-04-01 14:55 | disposition home or self-care (01) | LOC: EMS 14:54 | PROVIDERS: ATTEND Surgery | DX: N39.0 Urinary tract infection, site not specified (principal); R53.1 Weakness; Z99.81 Dependence on supplemental oxygen; Z74.01 Bed confinement status | CPT/HCPCS: A0425; A0428 ==

== ENCOUNTER 2018-04-13 14:45 | Outpatient (CLI) | payer MEDICARE, OTHER ==
--- NOTE | 2018-04-13 18:56 | CONSULTATION NOTE ---
Palliative Care Follow Up - Referral Referring Provider: Dr. Donnell Chaudhary Time of Visit: 4882-6961 Referral setting: Home (Patient is bedbound since discharge and October. To leave the home needs to call an ambulance.) Referral Reason: Dementia with behavioral disturbances/COPD/Candidiasis - Information Sources Records reviewed: Previous records reviewed History/Review of Systems obtained from: Patient, Family (Daughter Jamilah providing most of the ROS/History) Exam limitations: Clinical condition (Patient minimally interactive during visit ; some lethargy but mostly choosing to keep eyes closed) - History of Present Illness Update Brief HPI Update: This is an 82-year-old woman who was most recently hospitalized 03/28-04/01 at [facility] for presumed urinary tract infection, altered mental status, CKD stage III, hypertension and mild pulmonary hypertension. Patient had previously been hospitalized in October with advanced COPD, with an acute exacerbation, had been having functional and cognitive decline but it had exacerbated, and had continued to smoke. Of note prior to October patient has not really walked for about 5 years, she would get up one time a day and wheelchair in to the few steps to use the bathroom otherwise spent most of her time on the couch. On returning home in October she essentially became hospital bedbound, and family have been providing care originally with support from home health, but have been managing mostly with the support of her daughter Jamilah. An interesting development has been since December, she has been having "these spells", where she would have 1-3 days where she is minimally responsive, often curls up in a position, may be does not eat for 24-48 hrs. and then comes out of it for 2-5 days returning back to her baseline. This has happened about weekly. Unknown etiology, but had an episode that was worsening, was talking to relatives having more hallucinations from her baseline and her O2 sats had decreased to 80%. When they called 911, she was hospitalized with a diagnosis of this a severe UTI, and this was attributed as far as her symptomology to her infection. She continues this pattern though, her daughter feels like she is entering another one, she is interactive though somewhat subdued during our visit. She just finished her Levaquin for her UTI, she has a very severe right red rash of candidiasis through her thighs groin and up into her back and perirectal area. Patient is incontinent, and they do change her but can often go overnight without. pericare. Patient does spend most of her day watching TV , the [employer] channel, she is somewhat interactive with her daughter. She does have really poor short-term memory, but recognizes the family, and has had ongoing intermittent hallucinations. She has not smoked since her discharge in October, she does become quite hypoxic when her oxygen comes off per her daughter. Sometimes when she is restless or confused if she does take it off. Daughter does perceive her quality of life is quite "horrible", she would like to focus on comfort and not extending her suffering. Social History - Living Situation Living arrangement: At home Living Situation: With family (She lives in her own home, 1 of her sons live with her on though he is there overnight he does not provide personal care. Her daughter Jamilah with the assistance of her sister and do care for her for most of the day, helping with food prep, merry-care, bathing and positioning. They have been doing this since October, the daughter is somewhat philosophical, though she gets very little respite.) Medications/Allergies - Medications Home Medications: Ambulatory Orders Medication Instructions Recorded Confirmed Meloxicam 7.5 mg PO BID 11/03/17 04/14/18 Metoprolol Succinate 25 mg PO BID 11/03/17 04/14/18 Mometasone/Formoterol [Dulera 200 1 puffs INH BID PRN 11/03/17 04/14/18 Mcg/5 Mcg Inhaler] Ipratropium/Albuterol [Duoneb] 3 ml INH Q4HR PRN #60 neb 11/06/17 04/14/18 Furosemide 20 mg PO DAILY #30 tablet 04/01/18 04/14/18 Saccharomyces Boulardii [Florastor] 250 mg PO BID 20 Days #40 capsule 04/01/18 04/14/18 Fluconazole [Diflucan] 100 mg PO . 3 DAYS 04/14/18 04/14/18 Nystatin [Nystop] 1 applic TOP BID 04/14/18 04/14/18 Spironolactone [Aldactone] 12.5 mg PO BID 04/14/18 04/14/18 - Allergies Allergies/Adverse Reactions: Allergies Allergy/AdvReac Type Severity Reaction Status Date / Time No Known Drug Allergies Allergy Verified 02/19/18 11:24 Review of Systems - Constitutional Constitutional: reports: Fatigue, Poor appetite, Weight loss (6 pounds between ) - Eyes Eyes: reports: Vision loss - Ears, Nose & Throat Ears, Nose & Throat: reports: Hearing loss (mild), Dry mouth - Respiratory Respiratory: denies: SOB at rest - Gastrointestinal Gastrointestinal: reports: Good appetite, Other (soft mushy bowel movements 2-3 x day; on episode of explosive diarrhea when home). 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 negative: Pharyngeal erythema, Other ( no s/s oral candidiasis) Neck: positive: Trachea midline Cardiovascular: positive: Regular rate & rhythm Respiratory: positive: Other (dry crackles in lower lobes; more fibrotic in nature than moist). negative: Wheezes, Rhonchi Abdomen: positive: Soft, Nml bowel sounds Skin: positive: Pallor, Rash (see HPI; extensive candidiasis; painful with moist areas of desquamation) Extremities: positive: No pedal edema, Other (minimally able to help with bed mobility or turning; needing significant amount of cuing noted as well) Neurologic/Psychiatric: positive: Disoriented to time, Weakness, Depressed mood/ affect, Flat affect, Other (refused to answer cognition questions; daughter reports HATES being talked to like a child; will refuse to answer questions then ; did better with even tone but does have STM issues and said often don't know or deferred to daughter) Palliative Care - POLST Patient has POLST: Yes POLST Status: DNR, Selective Treatment (do not want hospitalization at this time ; hopeful with Palliative Care can avoid; more aligned with comfort measures but patient signed original; will leave for now) Pain: Pain unchanged, Location (joint pain historically; less pain with weight bearing) Tiredness/Fatigue: Moderate (4-6) Drowsiness/Sedation: Comment (fluctuates with "spells") Nausea: None Depression: Moderate (4-6) Sleep: Sleeps well Constipation: No Performance Status: Patient bedbound, poor bed mobility, have not been turning have her "bridged" on pillows. Daughter providing bathing, meal prep; pericare, and with some assist for turning/cleaning. - Palliative Care Discussion: Patient denied any concerns when asked; very quiet and withdrawn when awake. Spoke at length with daughter Jamilah Cordero [phone] who shares DPOA with her brother Triston Kothari [phone]. There goal is to not have patient return to the hospital, to keep her comfortable for a at home. Counseling regarding hospice, patient may meet criteria but she wants to finish follow up with her siblings, thinks patient would be annoyed. Reviewed though at point patient eligible or family ready the support especially with all her concerns, fluctuating status, and increased care needs would be of benefit. They have had HH and found that helpful on discharge in October. Jamilah is ready and comfortable for her to have a at home, counseling provided in the context of what to do if she passed, calling paramedics for pronouncement and meeting them at the door with the POLST. Feels currently with palliative care available (though limited) and doesn't have to call 911 or go to hospital to get evaluation she will be okay. Impression and Recommendations - Palliative Care Impression: This is an 82 year old woman recently acutely hospitalized for UTI, pulmonary htn, and progressive dementia. She is bedbound, totally dependent on family to meet care needs. She has "spells" that have been cycling since December, and has had cognitive decline with fluctuating mental status changes. Palliative care to provide support until transition to hospice. Recommendations/Counseling Done: 1.Dementia. Patient with significant STM deficits, cycling with altered mental status of unknown etiology, and intermittent hallucinations. At this point no significant distress, just puzzling to family, though patient in unresponsive state does not eat/drink. Will continue to monitor. 2. UTI. Just finished antibiotic, high risk for recurrence as is incontinent of stool 2-3 times a day, and limited caregiving through night to change. Offered and recommended consider harry catheter for ease and relief of urine on current comprised skin, declined for now, patient had bad experience with cathed urine in ED. 3. Candidiasis of the skin. Patient with severe rash perirectal/merry area, and swollen vaginal mucosa with drainage. Ordered Diflucan 100 mg daily for three days, and Svetlana antifungal cream. Has moist open area under right breast, ordered Nystop for application BID until clear. Counseling on positioning for prevention of skin breakdown. 4. Advanced COPD. Patient oxygen dependent, hypoxic if oxygen falls/or taken off. Managing currently with need recently for duoneb/inhalers, unable to smoke any more which has improved her respiratory status. 4. Advanced care planning. Counseling regrading the hospice benefit, goals of care, and what to do at the time of . Wanting to avoid hospitalization and have a at home. They do have arrangements with [facility]. Encouraged family to consider transition if patient declines further or acute infection again. Time Spent: 60 minutes with greater than 50% done in counseling regarding goals of care, care for bedbound patient and anticipatory guidance.
== END 2018-04-13 14:46 | disposition home or self-care (01) ==
LOC: PC 14:45
PROVIDERS: ATTEND Nurse Practitioner Adult Health
DX: Z51.5 Encounter for palliative care (principal); F03.90 Unspecified dementia, unspecified severity, without behavioral disturbance, psychotic disturbance, mood disturbance, and anxiety; B37.2 Candidiasis of skin and nail; J44.9 Chronic obstructive pulmonary disease, unspecified; Z99.81 Dependence on supplemental oxygen; Z74.01 Bed confinement status; R44.3 Hallucinations, unspecified; Z87.891 Personal history of nicotine dependence; Z79.1 Long term (current) use of non-steroidal anti-inflammatories (NSAID); R63.4 Abnormal weight loss; M62.81 Muscle weakness (generalized); Z66 Do not resuscitate
CPT/HCPCS: 99350

== ENCOUNTER 2018-05-12 12:45 | Outpatient (CLI) | payer MEDICARE, OTHER ==
--- NOTE | 2018-05-12 17:41 | CONSULTATION NOTE ---
Palliative Care Follow Up - Referral Referring Provider: Dr. Chaudhary Time of Visit: [id number] Referral setting: Home Referral Reason: COPD/Dementia/Bedbound status - Information Sources Records reviewed: Previous records reviewed History/Review of Systems obtained from: Family (daughter Jamilah providing ROS) Exam limitations: Clinical condition (patient with dementia; able to answer questions only in here and now; no STM) - History of Present Illness Update Brief HPI Update: This is an 82-year-old woman with underlying severe COPD, has improved but she has quit smoking. She is now oxygen dependent, easily hypoxic off of her O2, but on 2 L she sats at 96%. She has known CKD stage III, hypertension, and mild pulmonary hypertension. Her most recent hospitalization in March was for a UTI and altered mental status. She has continued to improve, she has not had any further "spells", which is usually alteration in mental status, decreased intake, and nonresponsiveness. She has been having fluctuating appetite, but has done well with fluids. When I last saw her 04/13 she had a severe red rash of candidiasis this is since cleared up. Her presenting symptom today though is increased dyspnea with any kind of conversation, no cough, but does have crackles throughout. Patient does not perceive distress, daughters noticed it for 2-3 weeks, patient reports overall that she is feeling quite comfortable. She does have some intermittent osteoarthritic pain and discomfort with turning , also intermittent anxiety. Daughter perceives though other than bedbound status, there are no acute concerns other than this breathlessness. Social History - Living Situation Living arrangement: At home Living Situation: With family (lives with son; Daughter Jamilah providing most of daytime care; family members taking rotating turns) Medications/Allergies - Medications Home Medications: Ambulatory Orders Medication Instructions Recorded Confirmed Meloxicam 7.5 mg PO BID 11/03/17 05/13/18 Metoprolol Succinate 25 mg PO BID 11/03/17 05/13/18 Mometasone/Formoterol [Dulera 200 1 puffs INH BID PRN 11/03/17 05/13/18 Mcg/5 Mcg Inhaler] Ipratropium/Albuterol [Duoneb] 3 ml INH Q4HR PRN #60 neb 11/06/17 05/13/18 Nystatin [Nystop] 1 applic TOP BID 04/14/18 05/13/18 Spironolactone [Aldactone] 25 mg PO DAILY 04/14/18 05/13/18 Furosemide 40 mg PO DAILY 05/13/18 05/13/18 - Allergies Allergies/Adverse Reactions: Allergies Allergy/AdvReac Type Severity Reaction Status Date / Time No Known Drug Allergies Allergy Verified 11/03/17 11:24 Review of Systems - Constitutional Constitutional: reports: Fatigue - Ears, Nose & Throat Ears, Nose & Throat: reports: Hearing loss (mild), Dry mouth - Cardiovascular Cardiovascular: reports: Exertional dyspnea, Decr. exercise tolerance, Orthopnea. denies: Edema - Respiratory Respiratory: reports: SOB at rest (noted increase diff. with resp effort; no increase in cough or wheezing; for about 2-3 weeks). denies: Wheezing - Gastrointestinal Gastrointestinal: reports: Other (fluctuating status; does no appear to have weight loss). denies: Constipation, Nausea - Genitourinary Genitourinary: reports: Incontinence - Musculoskeletal Musculoskeletal: reports: Muscle pain, Stiffness, Muscle weakness, Other ( bedbound) - Integumentary Integumentary: reports: Other (candidiasis clearing) - Neurological Neurological: reports: General weakness, Memory problems - Psychiatric Psychiatric: reports: Anxiety (intermittent;) - Hematologic/Lymphatic Hematologic/Lymphatic: reports: Recurrent infections (recent UTIs; no s/s last few weeks) - Other Findings Other Findings: limited as patient unable to participate Physical Exam - Vital Signs Temperature: 96.2 C Pulse Rate: 61 Respiratory Rate: 22 O2 Saturation: 96 (@ rest on 2 liters) Blood Pressure: 102/62 - Physical Exam General Appearance: positive: No acute distress, Anxious Eyes Bilateral: positive: Normal inspection ENT: positive: No signs of dehydration Neck: positive: No JVD, Trachea midline Cardiovascular: positive: Regular rate & rhythm Respiratory: positive: Other (crackles 1/2 up; patient with increased respiratory effort; becomes breathless wtih conversation) Abdomen: positive: Non-tender, Soft, Nml bowel sounds, Obese Skin: positive: Pallor, Other (rash resolved; no s/s of skin breakdown; still some redness in abdominal folds but improving) Extremities: positive: No pedal edema Neurologic/Psychiatric: positive: Mood/affect nml, Disoriented to time, Weakness , Flat affect Palliative Care - POLST Patient has POLST: Yes POLST Status: DNR, Selective Treatment Pain: Pain unchanged, Location (Multiple joints related to osteoarthritis, has severe back pain that improved with bedbound status. Currently on meloxicam 7.5 mg twice daily this is long-term been her pain regimen) Tiredness/Fatigue: Severe (7-10) Drowsiness/Sedation: Moderate (4-6) Nausea: None Anxiety: Moderate (4-6) Sleep: Sleeps well Constipation: No Performance Status: Patient is bedbound, dependent on daughter for all ADLs, patient is able to self -feed. Does assist somewhat with holding onto side rails, otherwise needs max assist for turning and merry-care - Palliative Care Discussion: Patient with very little insight into her current status, she does understand she is bedbound. Does not understand the seriousness of her illness, her daughter does perceive her current quality of life is poor. The goal is for no further hospitalization, no intervention to prolong suffering. Will continue to weigh benefits and burdens as symptoms arise. At this point daughter feels it would be too confusing for patient to have hospice, but will continue to evaluate this. Impression and Recommendations - Palliative Care Impression: This is an 82-year-old woman with progressive dementia, advanced COPD, and bedbound status. Today she presents with increased symptoms of breathlessness, patient with crackles, will adjust diuretics and monitor. Palliative care to support as patient unable to get into physician, to provide anticipatory guidance and symptom management. Recommendations/Counseling Done: 1. Breathlessness multifactorial in origin. Patient has underlying advanced COPD, pulmonary hypertension, and now presents with new crackles in her lungs. Will increase her furosemide from 20 mg to 40 mg daily, will reevaluate at 1 week if any improvement in symptoms. Patient does not perceive respiratory distress or discomfort with this. If effective will revisit home visit in 2 weeks with labs. 2. Dementia. Patient with significant short-term memory deficits, has not cycled as much this last month, she has had intermittent confusion and fluctuating appetite but otherwise has been participatory in her environment. 3. History of UTIs. Patient at this point in time has no signs or symptoms of infection, reviewed with daughter as far as alteration in mental status that is persistent, fever, or foul-smelling urine. 4. Candidiasis of skin. Patient's rash has responded to both Diflucan and Nystop. No signs or symptoms of skin breakdown, still has small amount of excoriation in abdominal folds. 5. Advanced COPD, patient oxygen dependent. Patient without need for DuoNeb or inhalers as has not been wheezy or perceived shortness of breath. 5. Advanced care planning. Reviewed current goals, continue to focus on comfort, at this point in time they feel adequate support with palliative care, though would probably benefit from hospice the patient is plateaued at this point in time. We will continue to monitor and transition to hospice is appropriate Time Spent: 45 minutes with greater than 50% of this done in counseling, regarding symptom management, medication adjustments, and anticipatory guidance
== END 2018-05-12 12:46 | disposition home or self-care (01) ==
LOC: PC 12:45
PROVIDERS: ATTEND Nurse Practitioner Adult Health
DX: Z51.5 Encounter for palliative care (principal); R06.81 Apnea, not elsewhere classified; F03.90 Unspecified dementia, unspecified severity, without behavioral disturbance, psychotic disturbance, mood disturbance, and anxiety; J44.9 Chronic obstructive pulmonary disease, unspecified; Z99.81 Dependence on supplemental oxygen; Z74.01 Bed confinement status; N18.3 Chronic kidney disease, stage 3 (moderate); Z79.1 Long term (current) use of non-steroidal anti-inflammatories (NSAID); M62.81 Muscle weakness (generalized); F41.9 Anxiety disorder, unspecified; Z66 Do not resuscitate
CPT/HCPCS: 99349

== ENCOUNTER 2018-06-23 14:00 | Outpatient (CLI) | payer MEDICARE, OTHER ==
--- NOTE | 2018-06-23 21:44 | CONSULTATION NOTE ---
Palliative Care Follow Up - Referral Referring Provider: Dr. Chaudhary Time of Visit: 9723-6592 Referral setting: Home (It is a taxing considerable effort for the patient to leave the home secondary she is bedbound status) Referral Reason: Advanced COPD/Dementia - Information Sources Records reviewed: Previous records reviewed History/Review of Systems obtained from: Family (vic Roque provided most of history) Exam limitations: Clinical condition (patient with dementia;) - History of Present Illness Update Brief HPI Update: This is an 82-year-old woman with underlying severe COPD, which is improved since she is quit smoking. She is now on oxygen, intermittent hypoxia particularly when she takes it off. On her visit at the end of April, I had increased her furosemide from 20 to 40 mg secondary to some increased crackles, and shortness of breath. She only tolerated this for about a week, she disliked increased urine output. Daughter reports after last phone call we had she did restarted at 40 mg now for 2 weeks. Daughter reports this has improved patient's shortness of breath, she does have diminished breath sounds in the bases with few inspiratory crackles, and her O2 sats are about 90% on 2 L. She has wanted the "fan" on now for about two weeks, feels this helps her get more air. She does have known CKD stage III, hypertension, and mild pulmonary hypertension. She has not had any further signs or symptoms of UTI, though her mental status does fluctuate. Her appetite remains fairly steady, she has good fluid intake, her main complaint has been intermittent itching though without any signs or symptoms of rash. On examination she does have a mild rash on her right flank area, unclear if this is related to scratching or not. Patient denies any distress, she remains bedbound, and attended to by her family. She has only intermittent osteoarthritic Pain and discomfort with turning, and intermittent anxiety. Social History - Living Situation Living arrangement: At home Living Situation: With family Support System: Patient lives with son, daughter Jamilah providing most of the daytime care, and family members taking rotating turns to provide support to allow her to be at home. Medications/Allergies - Medications Home Medications: Ambulatory Orders Medication Instructions Recorded Confirmed Meloxicam 7.5 mg PO DAILY 11/03/17 06/24/18 Metoprolol Succinate 25 mg PO BID 11/03/17 06/23/18 Mometasone/Formoterol [Dulera 200 1 puffs INH BID PRN 11/03/17 06/23/18 Mcg/5 Mcg Inhaler] Ipratropium/Albuterol [Duoneb] 3 ml INH Q4HR PRN #60 neb 11/06/17 06/23/18 Nystatin [Nystop] 1 applic TOP BID 04/14/18 06/23/18 Spironolactone [Aldactone] 25 mg PO DAILY 04/14/18 06/23/18 Furosemide 40 mg PO .QOD 05/13/18 06/24/18 Furosemide 20 mg PO .QOD 06/24/18 06/24/18 Triamcinolone 0.1% Oint [Kenalog 1 applic TOP BID PRN 06/24/18 06/24/18 0.1% Oint] - Allergies Allergies/Adverse Reactions: Allergies Allergy/AdvReac Type Severity Reaction Status Date / Time No Known Drug Allergies Allergy Verified 11/03/17 11:24 Review of Systems - Constitutional Constitutional: reports: Fatigue, Weight stable (per daughters observation) - Eyes Eyes: reports: Vision loss - Ears, Nose & Throat Ears, Nose & Throat: reports: Hearing loss (mild) - Cardiovascular Cardiovascular: reports: Orthopnea (sleeps with HOB greater than 30 degrees). denies: Chest pain - Respiratory Respiratory: denies: Cough, Wheezing, SOB at rest - Gastrointestinal Gastrointestinal: denies: Constipation - Genitourinary Genitourinary: reports: Incontinence - Musculoskeletal Musculoskeletal: reports: Muscle aches, Muscle weakness, Joint pain, Other (bedbound) - Integumentary Integumentary: reports: Pruritis, Hair changes (some cradle cap as result of no showering; using rinseless shampoo; discussed portable bed shampoo trays) - Neurological Neurological: reports: General weakness, Memory problems - Psychiatric Psychiatric: reports: Depression, Anxiety - Hematologic/Lymphatic Hematologic/Lymphatic: reports: Recurrent infections - All Other Systems All Other Systems: reports: Reviewed and negative Physical Exam - Vital Signs Temperature: 96.2 C Pulse Rate: 86 Respiratory Rate: 18 O2 Saturation: 90 (2 liters) Blood Pressure: 108/62 - Physical Exam General Appearance: positive: No acute distress Eyes Bilateral: positive: Normal inspection ENT: positive: No signs of dehydration Neck: positive: No JVD, Trachea midline Cardiovascular: positive: Regular rate & rhythm Respiratory: positive: Diminished in bases, Rales (few inspiratory crackles/fine) Abdomen: positive: Soft, Nml bowel sounds Skin: positive: Rash (right flank dull appears to have been scratching though denies; skin dry but candidiasis cleared). negative: Pressure wound Extremities: positive: Pedal edema Neurologic/Psychiatric: positive: Disoriented to time, Weakness, Flat affect Palliative Care - POLST Patient has POLST: Yes POLST Status: DNR, Selective Treatment Pain: Pain unchanged, Location (Very tender to touch, with turning does have pain in hips back and shoulders. Complains of right hand and arm pain secondary to osteoarthritis. This is improved with decreased swelling in her hand per daughter's report) Tiredness/Fatigue: Moderate (4-6) Drowsiness/Sedation: Moderate (4-6) Nausea: None Depression: Mild (1-3) Anxiety: Moderate (4-6) Dyspnea: Comment (denies though does have respiratory effort with turning) Anorexia: None Sleep: Sleeps well Constipation: No Performance Status: Patient is bedbound, totally dependent for toileting. Is able to feed self, spends most of the day sleeping on and off and watching TV. Does appears to continue to withdraw, no further episodes of severe confusion, though does have fluctuating awareness and mental status, does interact some with family. - Palliative Care Discussion: Vicky Roque continues to oversee patient's care, patient has fluctuating good and bad days, but continues to slowly decline. She has not had any acute distress, goal is to continue to focus on comfort. Patient will only engage for short periods, then gets impatient with any questioning. She does say she tries not to complain, finds it very difficult to be dependent on her family. Denies any complaints or distress. Continues to have very little insight into status, The goal is for no further hospitalization and focus on comfort. At this point daughter still feels it would be too confusing to have hospice with the multiple players given her anxiety disorder, will continue to evaluate Results - Lab Results Lab results reviewed: Yes Lab and Imaging Results: BUN 37; creatinine 1.7; GFR 29; potassium 5.1; Impression and Recommendations - Palliative Care Impression: This is an 82-year-old woman with progressive dementia, advanced COPD with known pulmonary hypertension, and bedbound status. Patient has responded to adjustment of diuretics, does not present with any undue distress, and continues to decline very slowly. Palliative care continue to provide support as unable to get into physician, continue to provide anticipatory guidance and symptom management. Recommendations/Counseling Done: 1. Dyspnea multifactorial in origin. Patient does have underlying advanced COPD, pulmonary hypertension, has responded to increased furosemide. Labs drawn to evaluate kidney function and if need to add potassium. Patient very difficult draw, small specimen taken. Patient's potassium 5.1, does seem to be responding to Spironolactone, kidney function is worsening, will decrease her furosemide to alternating 40/20 mg every other day. As well as discontinue 1 dose of the meloxicam of the BID dosing to see if improves. Will redraw in 2-3 weeks. 2. Dementia without behavioral disturbances. Patient with significant short- term memory deficits, does have intermittent confusion and fluctuating awareness, but has not had further episodes of acute confusion. 3. History of UTIs. Patient with no signs or symptoms of infection, daughter is monitoring, patient would not allow cath specimen so will treat for comfort if needed. 4. Rash secondary to pruritus. Patient is bedbound, they are moisturizing her skin. Small patch of irritation, triamcinolone 0.1% ointment prescribed for short term and intermittent use. Counseling provided to daughter on care. 5. Advanced COPD, patient oxygen dependent. Patient has not needed any DuoNeb or inhalers, does use fan for perceived shortness of breath, no wheezing, does find intermittent crackles. She has responded to the increase in diuretics. We will continue to monitor. 6. Severe osteoarthritis. Patient has been on long-term meloxicam 7.5 mg twice daily secondary to severe pain. Did discuss with daughter may need to discontinue if kidney function compromised, or at least decreased dosing. Patient can use acetaminophen, though has been ineffective in the past. Addendum will decrease meloxicam 7.5 mg from twice daily to once a day, instructed to use acetaminophen for breakthrough pain if needed, may need to discontinue altogether though comfort is the goal and it has been an effective medication. 6. Advanced care planning. Goals continue to focus on comfort, probably would benefit from hospice so patient has plateaued at this point in time. We will continue to monitor and transition to hospice when appropriate Time Spent: 40 minutes with greater than 50% of this done in counseling regarding pain and symptom management, obtaining lab specimen, and counseling for anticipatory guidance.
== END 2018-06-23 14:01 | disposition home or self-care (01) ==
LOC: PC 14:00
PROVIDERS: ATTEND Nurse Practitioner Adult Health
DX: Z51.5 Encounter for palliative care (principal); R06.00 Dyspnea, unspecified; F03.90 Unspecified dementia, unspecified severity, without behavioral disturbance, psychotic disturbance, mood disturbance, and anxiety; J44.9 Chronic obstructive pulmonary disease, unspecified; Z99.81 Dependence on supplemental oxygen; F41.9 Anxiety disorder, unspecified; Z74.01 Bed confinement status; Z87.891 Personal history of nicotine dependence; N18.3 Chronic kidney disease, stage 3 (moderate); Z79.1 Long term (current) use of non-steroidal anti-inflammatories (NSAID); Z66 Do not resuscitate
CPT/HCPCS: 99349

== ENCOUNTER 2018-06-23 14:40 | Outpatient (CLI) | payer MEDICARE, OTHER ==
[2018-06-24 08:27] LABS: CREATININE 1.7 mg/dL (0.4-1.0)
== END 2018-06-23 14:41 ==
LOC: LAB.R 14:40
PROVIDERS: ATTEND Nurse Practitioner Adult Health
DX: Z79.899 Other long term (current) drug therapy (principal)
CPT/HCPCS: 80048

== ENCOUNTER 2018-07-30 11:00 | Outpatient (CLI) | payer MEDICARE, OTHER ==
--- NOTE | 2018-07-30 17:02 | CONSULTATION NOTE ---
Palliative Care Follow Up - Referral Referring Provider: Dr. Donnell Chaudhary Time of Visit: 1111:45 Referral setting: Home (Patient is bedbound) Referral Reason: Dementia with behavioral disturbances/CKD - Information Sources Records reviewed: Previous records reviewed History/Review of Systems obtained from: Patient, Family (daughter Mya providing ROS) Exam limitations: Clinical condition (patient with dementia; conversant but no STM) - History of Present Illness Update Brief HPI Update: This is a 82-year-old woman with underlying severe COPD, oxygen dependent, intermittent hypoxia particularly she takes it off. She is currently tolerating her furosemide 20 mg tabs alternating with 40 mg, still has some fine crackles but shortness of breath has not changed. Her O2 sats at 2 L 95% today. She denies shortness of breath, or any respiratory effort. She does have known CKD stage III, hypertension, and mild pulmonary hypertension. She does have fluctuating mental status, but no further signs or symptoms of UTI. Her appetite remains steady, she has had difficulty with rashes, and perirectal irritation. Patient has mild intermittent osteo-arthritic pain, discomfort with turning, and intermittent anxiety. Social History - Living Situation Living arrangement: At home Living Situation: With family Support System: Patient's daughter supervised most of the hands-on care, again turning a regular basis, patient does not have a Beckett catheter, so provides consuelo-care and changing of depends. Other family members provide companionship, assistance with meals, her sister does give her some respite from time to time. They have been doing this now solid for 9 months. She does not qualify for caregiving assist, though cannot afford paying caregivers. Medications/Allergies - Medications Home Medications: Ambulatory Orders Medication Instructions Recorded Confirmed Meloxicam 7.5 mg PO DAILY 11/03/17 07/30/18 Metoprolol Succinate 25 mg PO BID 11/03/17 07/30/18 Ipratropium/Albuterol [Duoneb] 3 ml INH Q4HR PRN #60 neb 11/06/17 07/30/18 Nystatin [Nystop] 1 applic TOP BID 04/14/18 07/30/18 Spironolactone [Aldactone] 25 mg PO DAILY 04/14/18 07/30/18 Furosemide 40 mg PO .QOD 05/13/18 07/30/18 Furosemide 20 mg PO .QOD 06/24/18 07/30/18 Triamcinolone 0.1% Oint [Kenalog 1 applic TOP BID PRN 06/24/18 07/30/18 0.1% Oint] - Allergies Allergies/Adverse Reactions: Allergies Allergy/AdvReac Type Severity Reaction Status Date / Time No Known Drug Allergies Allergy Verified 11/03/17 11:24 Review of Systems - Constitutional Constitutional: reports: Fatigue. denies: Fever - Eyes Eyes: reports: Vision loss - Ears, Nose & Throat Ears, Nose & Throat: reports: Hearing loss (mild) - Respiratory Respiratory: reports: SOB with exertion. denies: Cough, Wheezing - Gastrointestinal Gastrointestinal: reports: Good appetite, Other (oozes soft stool continuously). denies: Constipation, Nausea - Genitourinary Genitourinary: reports: Incontinence - Musculoskeletal Musculoskeletal: reports: Stiffness, Muscle weakness, Joint pain (right hand) - Integumentary Integumentary: reports: Rash, Dryness - Neurological Neurological: reports: General weakness, Memory problems (able to talk in full sentences when asked; does not initiate conversation; STM issues but fluctuating confusion improved) - Psychiatric Psychiatric: reports: Anxiety Physical Exam - Vital Signs Temperature: 96.8 C Pulse Rate: 68 Respiratory Rate: 18 O2 Saturation: 95 (2 liters at rest) Blood Pressure: 108/62 - Physical Exam General Appearance: positive: No acute distress, Anxious (about pending blood draw) Eyes Bilateral: positive: Normal inspection ENT: positive: No signs of dehydration Neck: positive: No JVD, Trachea midline Cardiovascular: positive: Regular rate & rhythm Respiratory: positive: Diminished throughout, Rales (fine expiratory crackles right greater than left; improved) Abdomen: positive: Non-tender, Soft, Nml bowel sounds Skin: positive: Rash (right flank; had improved with triamcinolone/off two weeks, last week came back and not responding; appears to be candidiasis; perirectal area where using eleanor dried and faded pink) Extremities: positive: No pedal edema Neurologic/Psychiatric: positive: Disoriented to time, Weakness, Flat affect Palliative Care - POLST Patient has POLST: Yes POLST Status: DNR, Selective Treatment Pain: Pain unchanged, Location (right hand with arthritis; difficulty straightening;) Tiredness/Fatigue: Moderate (4-6) Sleep: Sleeps well Feelings of wellbeing/Perceived Quality of Life: Fair, Acceptable Performance Status: Patient is bedbound, does follow some cueing and able to assist in turning herself over by holding onto the rails. She is able to self-feed, but is dependent for all other ADLs. - Palliative Care Discussion: Patient is continued to remain stable, sleeping for long periods of time, watches TV, still eating. No other signs or symptoms of infection, has had intermittent days with some confusion, but none that have developed for concerns regarding ongoing recurrent UTIs. Goal is still to focus on comfort, no rehospitalization, continue weigh benefits and burdens of treating infections in the future. Patient does appear well cared for and content Results - Lab Results Lab results reviewed: Yes Lab and Imaging Results: kidney function improved; reviewed with daughter; no medication changes made; labs drawn from left anticubital without difficulty today. Impression and Recommendations - Palliative Care Impression: This is an 82-year-old woman with progressive dementia, advanced COPD, with known pulmonary hypertension and bedbound status. Patient is responded well to adjustments of medications, follow-up today on kidney function and baseline. Patient with low symptom burden. Palliative care to continue provide support as unable to leave the home, continue to provide anticipatory guidance and symptom management. Recommendations/Counseling Done: 1. Dyspnea, multifactorial in origin. She does appear to have improved from my last visit, she does have underlying advanced COPD, pulmonary hypertension, has continued to do well with alternating furosemide 40/20 mg every other day. 2. Dementia with behavioral disturbances. Patient with significant short-term memory deficits, does have intermittent confusion and fluctuating awareness, has remained without acute confusion and is remaining cooperative. 3. Right flank rash. Triamcinolone 0.1% ointment was used with good response, now presents with some can data in that area. Has been instructed to use Oleg antifungal cream until cleared. Patient continues with pruritus, is on memory foam which does trap heat and moisture. Instructed to put mattress pad on top of memory foam to assist. 4.Consuelo-rectal dryness/rash. Most likely dried out from the zinc in the barrier antifungal cream. Instructed no further candidiasis noted, to treat out with a and D ointment. 5. Severe osteoarthritis. Patient has been on long-term meloxicam 7.5 mg, it was decreased to once daily, related to kidney function. Her kidney function has stabilized, will continue with just once daily, patient can use acetaminophen for breakthrough pain. 6. Advanced care planning. Goals continue to focus on comfort, patient has plateaued at this point in time, we will continue to monitor and transition to hospice when appropriate and/or accepted by family Time Spent: Time spent 45 minutes with greater than 50% of this done in counseling regarding management of rash, anticipatory guidance, and [facility]
== END 2018-07-30 11:01 | disposition home or self-care (01) ==
LOC: PC 11:00
PROVIDERS: ATTEND Nurse Practitioner Adult Health
DX: Z51.5 Encounter for palliative care (principal); R06.00 Dyspnea, unspecified; F03.91 Unspecified dementia, unspecified severity, with behavioral disturbance; J44.9 Chronic obstructive pulmonary disease, unspecified; I27.20 Pulmonary hypertension, unspecified; Z74.01 Bed confinement status; Z99.81 Dependence on supplemental oxygen; N18.3 Chronic kidney disease, stage 3 (moderate); Z79.1 Long term (current) use of non-steroidal anti-inflammatories (NSAID); Z66 Do not resuscitate
CPT/HCPCS: 99349

== ENCOUNTER 2018-07-30 11:25 | Outpatient (CLI) | payer MEDICARE, OTHER ==
[2018-07-30 13:11] LABS: BASOPHILS # (AUTO) 0.1 10^3/uL (0.0-0.1); BASOPHILS % (AUTO) 0.7 %; EOSINOPHILS # (AUTO) 0.7 10^3/uL (0.0-0.7); EOSINOPHILS % (AUTO) 6.8 %; HGB - HEMOGLOBIN 14.1 g/dL (12.0-16.0); LYMPHOCYTES # (AUTO) 1.1 10^3/uL (1.5-3.5); LYMPHOCYTES % (AUTO) 10.6 %; MEAN CORPUSCULAR HEMOGLOBIN 30.8 pg (27.0-31.0); MEAN CORPUSCULAR HGB CONC 34.2 g/dL (32.0-36.0); MEAN CORPUSCULAR VOLUME 90.1 fL (81.0-99.0); MEAN PLATELET VOLUME 8.9 fL (7.9-10.8); MONOCYTES # (AUTO) 0.9 10^3/uL (0.0-1.0); MONOCYTES % (AUTO) 8.9 %; NEUTROPHILS # (AUTO) 7.6 10^3/uL (1.5-6.6); PLT - PLATELET COUNT 212 10^3/uL (130-450); RED BLOOD COUNT 4.58 10^6/uL (4.20-5.40); RED CELL DISTRIBUTION WIDTH 14.4 % (12.0-15.0); WHITE BLOOD COUNT 10.5 x10^3/uL (4.8-10.8)
[2018-07-30 13:19] LABS: CALCIUM 8.6 mg/dL (8.5-10.3)
== END 2018-07-30 11:26 ==
LOC: LAB.R 11:25
PROVIDERS: ATTEND Nurse Practitioner Adult Health
DX: Z79.899 Other long term (current) drug therapy (principal)
CPT/HCPCS: 80048; 85025

== ENCOUNTER 2018-09-03 14:00 | Outpatient (CLI) | payer MEDICARE, OTHER ==
--- NOTE | 2018-09-03 16:48 | CONSULTATION NOTE ---
Palliative Care Follow Up - Referral Referring Provider: Dr. Donnell Chaudhary Time of Visit: [id number] Referral setting: Home (Patient is bedbound secondary to dyspnea and weakness and unable to leave the home.) Referral Reason: Pneumonia/COPD/Dementia with behavioral disturbances - Information Sources Records reviewed: Previous records reviewed History/Review of Systems obtained from: Family (daughter Nery provided history; another son Lloyd was there for conversation/goals of care) Exam limitations: Clinical condition (patient with advanced dementia; no STM;) - History of Present Illness Update Brief HPI Update: This is an 82-year-old woman with underlying severe COPD, oxygen dependent, intermittent hypoxia. Had gotten a call from daughter, reported patient had 5 days of increased lethargy, shallow breathing, intermittent new cough, less aware, and fluctuating intake. Patient had actually expressed concern that she might have pneumonia, and this was "it". Had requested evaluation, unfortunately the power is out, high anxiety regarding patient currently has enough oxygen for 13 hours. Patient does present as somewhat withdrawn, has some left neck discomfort, tilting head to the left. Difficulty with straightening out. Does not have a cough at time of visit, but does have increased crackles, about longterm up on the left, and more diminished throughout. Patient does have some anterior wheezing noted on exam. Patient denies distress, though does appear withdrawn and quiet compared to previous visits. Daughter had originally concerned patient had recurrent UTI, though no change in urine, but her mental status has been presenting with more confusion, occasional hallucinations, and sleeping more with fatigue. Patient is bedbound, has known CKD stage III, hypertension, and mild pulmonary hypertension. She does have significant osteoarthritis, is oriented only occasionally to person and place, dislikes mental status exam questions, but is much less verbal today. Social History - Living Situation Living arrangement: At home Living Situation: With family Support System: Lives with son, family members take shifts, Nery is a primary caregiver as far as providing personal care, bathing, and medication oversight. Medications/Allergies - Medications Home Medications: Ambulatory Orders Medication Instructions Recorded Confirmed Meloxicam 7.5 mg PO DAILY 11/03/17 09/03/18 Metoprolol Succinate 25 mg PO BID 11/03/17 09/03/18 Ipratropium/Albuterol [Duoneb] 3 ml INH Q4HR PRN #60 neb 11/06/17 09/03/18 Nystatin [Nystop] 1 applic TOP BID 04/14/18 09/03/18 Spironolactone [Aldactone] 25 mg PO DAILY 04/14/18 09/03/18 Furosemide 40 mg PO .QOD 05/13/18 09/03/18 Furosemide 20 mg PO .QOD 06/24/18 09/03/18 Triamcinolone 0.1% Oint [Kenalog 1 applic TOP BID PRN 06/24/18 09/03/18 0.1% Oint] LORazepam [Ativan] 0.5 mg PO Q6HR PRN 09/03/18 09/03/18 Levofloxacin [Levaquin] 500 mg PO DAILY 09/03/18 09/03/18 Morphine Sulfate [Morphine Sulf 5 mg PO .Q2 PRN 09/03/18 09/03/18 Oral (Roxanol)] predniSONE [Prednisone] 40 mg PO .DAILY X 5 DAYS 09/03/18 09/03/18 - Allergies Allergies/Adverse Reactions: Allergies Allergy/AdvReac Type Severity Reaction Status Date / Time No Known Drug Allergies Allergy Verified 11/03/17 11:24 Review of Systems - Constitutional Constitutional: reports: Fatigue (for about 5 days), Poor appetite, Weight loss (no weight but face more drawn;). denies: Fever - Eyes Eyes: reports: Vision loss - Cardiovascular Cardiovascular: reports: Orthopnea. denies: Chest pain - Respiratory Respiratory: reports: Cough (has avoided coughing related to chest pain with cough), SOB with exertion, Other (on oxygen 3 liters) - Gastrointestinal Gastrointestinal: reports: Early satiety. denies: Constipation - Genitourinary Genitourinary: reports: Incontinence - Musculoskeletal Musculoskeletal: reports: Muscle aches, Stiffness, Muscle weakness, Other (bedbound) - Integumentary Integumentary: reports: Dryness, Other (rash improved right flank) - Neurological Neurological: reports: General weakness, Memory problems - Psychiatric Psychiatric: reports: Depression, Anxiety, Behavior disturbances - All Other Systems All Other Systems: reports: Other (limited ROS related to dementia) Physical Exam - Vital Signs Temperature: 96.8 C Pulse Rate: 80 Respiratory Rate: 20 O2 Saturation: 98 (3 liters; decreased to 2 liters to save oxygen 95) Blood Pressure: 108/62 - Physical Exam General Appearance: positive: Mild distress, Lethargic Eyes Bilateral: positive: Normal inspection ENT: positive: No signs of dehydration Neck: positive: No JVD, Trachea midline Cardiovascular: positive: Regular rate & rhythm Respiratory: positive: Rales (Patient with fine crackles bilaterally 1[address] on left; Patient breathing quite shallow, daughter reports patient with pain with cough; scattered expiratory wheezes anteriorly. Patient does not appear in distress but much more withdrawn.) Abdomen: positive: Soft, Nml bowel sounds, Obese Skin: positive: Rash (right side improved). negative: Pressure wound Extremities: positive: No pedal edema Neurologic/Psychiatric: positive: Disoriented to place, Disoriented to time, Weakness, Slurred/abnml speech, Depressed mood/affect, Flat affect Palliative Care - POLST Patient has POLST: Yes POLST Status: DNR, Comfort Measures Pain: Pain unchanged Tiredness/Fatigue: Severe (7-10) Drowsiness/Sedation: Moderate (4-6) Performance Status: Patient is bedbound, does assist somewhat with turning, but is a 2 person assist for merry-care and repositioning. Patient is able to self feed, but is dependent for all ADLs. - Palliative Care Discussion: Discussion was initiated with Nery and her , as well as other son Lloyd. Patient does present with most likely community-acquired pneumonia, counseling provided in the context of goals of care. Discussed not treating, and focusing on comfort, discussed treating empirically as do not have chest x-ray/labs etc to confirm, nor able to check UTI, Recognizing with patient's ongoing decline may or may not respond to treatment, and again focus on comfort, or sending the hospital for intervention. After weighing the benefits and burdens, looking at the context of current holidays, decision was made to treat empirically, did order antibiotic and steroids, but also provided comfort meds. We also discussed transitioning to hospice, role of hospice support, as it is still aligned with her goals of care even if we did treat. At this point in time this was declined, though we will continue to consider over the next few days. Impression and Recommendations - Palliative Care Impression: This is an 82-year-old woman with known advanced COPD, presenting with 5 days of decline with increased respiratory symptoms, fluctuating mental status, and now concern for community-acquired pneumonia. Weighing benefits and burdens and goals of care, will go ahead and empirically treat, again with a focus on comfort recognizing may or may not respond. Palliative care to continue to provide support and transition to hospice when family ready. Recommendations/Counseling Done: 1. Community-acquired pneumonia. Given patient's CKD, will go ahead and treat with Levaquin 500 mg x 5 days, this is after counseling and weighing benefits and burdens in the context of goals of care. 2. Advanced COPD. Follow-up with Lisa, currently cannot get across the bridge, has 13 hours of oxygen. Tried to contact emergency services to see if there was community support for these patients, unfortunately given the high level of demand there is been no response. Patient was also prescribed prednisone 40 mg x 5 days, with the hope to improve her breathing and wheezing. They have tried albuterol nebulizer with very little effect over the last 24 hours. 3. Failure to thrive. Patient is declining both physically and cognitively. We will go ahead and provide tools in the home for comfort focused care, patient has been on morphine in the past, morphine 20 mg/ml provided with instruction to use 5 mg every 2 hours as needed, counseling provided on how to give sublingually and indications. Also provided lorazepam 0.5 mg 1 tab every 6 hours instructed on questioning and talking in difficulty if patient has anxiety or agitation. Anticipatory guidance given regarding the dying process, comfort care, and the goals comfort meds. Family will continue to weigh benefits and burdens of moving forward with hospice. 4. Advanced care planning. Original conversations had focus on weighing benefits and burdens of treatments as they come up with a focus on comfort, they do not want rehospitalization for patient, particularly given her dislike of hospitals. Patient does have a SHILPA ST in place with DNA R and comfort measures only. Primary D POA is Viri Ochoa [phone]. Time Spent: 60 minutes with getting 50% of this done in counseling regarding goals of care, weighing benefits and burdens of treating presumed community-acquired pneumonia, COPD exacerbation, and anticipatory guidance
== END 2018-09-03 14:01 | disposition home or self-care (01) ==
LOC: PC 14:00
PROVIDERS: ATTEND Nurse Practitioner Adult Health
DX: Z51.5 Encounter for palliative care (principal); J44.1 Chronic obstructive pulmonary disease with (acute) exacerbation; J18.9 Pneumonia, unspecified organism; R62.7 Adult failure to thrive; R41.81 Age-related cognitive decline; I12.9 Hypertensive chronic kidney disease with stage 1 through stage 4 chronic kidney disease, or unspecified chronic kidney disease; N18.3 Chronic kidney disease, stage 3 (moderate); F32.9 Major depressive disorder, single episode, unspecified; Z74.01 Bed confinement status; M19.90 Unspecified osteoarthritis, unspecified site; R53.1 Weakness; R32 Unspecified urinary incontinence; Z99.81 Dependence on supplemental oxygen; Z66 Do not resuscitate; Z79.891 Long term (current) use of opiate analgesic; Z79.52 Long term (current) use of systemic steroids; Z79.51 Long term (current) use of inhaled steroids
CPT/HCPCS: 99350

== ENCOUNTER 2018-09-17 11:00 | Outpatient (CLI) | payer MEDICARE, OTHER ==
--- NOTE | 2018-09-17 17:41 | CONSULTATION NOTE ---
Palliative Care Follow Up - Referral Referring Provider: Dr. Donnell Chaudhary Time of Visit: Referral setting: Home (Is a taxing considerable effort for the patient to leave the home secondary to her bedbound status and COPD) Referral Reason: Abdominal Pain/Constipation - Information Sources Records reviewed: Previous records reviewed History/Review of Systems obtained from: Family (daughter Verena) Exam limitations: Clinical condition (patient with advanced dementia) - History of Present Illness Update Brief HPI Update: This is an 82-year-old woman with underlying severe COPD, oxygen dependent, recently treated for community-acquired pneumonia. She received Levaquin 500 mg fire 5 days as well as a burst of prednisone, with resolution of symptoms. She still appears quite frail, breathless with any kind of activity, but cough is resolved and lungs are clear. She does have underlying dementia, is conversant, but no short-term memory. She is cared for at home by her family, is bedbound, main caregiver is Jamilah who oversees her medical care and provides personal care. When follow-up on 09/09 he had initiated prune juice secondary to patient complaints and decrease in bowel movements. Patient is incontinent of bowel, and often loose and frequently losing. Since that time is continued to have intermittent difficulty with bowels, passing "hard pellets", and decreased amounts. Today she presents with acute abdominal pain and discomfort, was responsive to 0.2 mils of morphine 20 mg/ML and is resting comfortably on arrival. Daughter reports abdomen has been hard particularly located on the left lower quadrant. Patient does have decreased bowel sounds, is tender to palpation over left lower quadrant, no masses palpated. Rectal exam reveals large amount of soft stool in lower rectal vault. Patient has had decreased intake, low-grade nausea, and one episode of vomiting yesterday unknown contents secondary to Jamilah was not present. Daughter does report some increase in intermittent confusion, but patient has continued to be more weak, voice is quite soft, but is cooperative and non-irritable at visit. Social History - Living Situation Living arrangement: At home Living Situation: With family (Lives with son, daughter Glenis provides personal care and oversight; coming daily several times; committed to keeping her at home and comfortable) Medications/Allergies - Medications Home Medications: Ambulatory Orders Medication Instructions Recorded Confirmed Meloxicam 7.5 mg PO DAILY 11/03/17 09/17/18 Metoprolol Succinate 25 mg PO BID 11/03/17 09/17/18 Ipratropium/Albuterol [Duoneb] 3 ml INH Q4HR PRN #60 neb 11/06/17 09/17/18 Nystatin [Nystop] 1 applic TOP BID 04/14/18 09/17/18 Spironolactone [Aldactone] 25 mg PO DAILY 04/14/18 09/17/18 Furosemide 40 mg PO .QOD 05/13/18 09/17/18 Furosemide 20 mg PO .QOD 06/24/18 09/17/18 Triamcinolone 0.1% Oint [Kenalog 1 applic TOP BID PRN 06/24/18 09/17/18 0.1% Oint] LORazepam [Ativan] 0.5 mg PO Q6HR PRN 09/03/18 09/17/18 Morphine Sulfate [Morphine Sulf 5 mg PO .Q2 PRN 09/03/18 09/17/18 Oral (Roxanol)] Polyethylene Glycol 3350 [Miralax] 17 gm PO DAILY MDD titrate for 09/17/18 09/17/18 daily bm - Allergies Allergies/Adverse Reactions: Allergies Allergy/AdvReac Type Severity Reaction Status Date / Time No Known Drug Allergies Allergy Verified 11/03/17 11:24 Review of Systems - Constitutional Constitutional: reports: Fatigue, Poor appetite, Weight loss. denies: Fever, Chills - Ears, Nose & Throat Ears, Nose & Throat: reports: Hearing loss, Dry mouth - Cardiovascular Cardiovascular: reports: Exertional dyspnea, Decr. exercise tolerance. denies: Chest pain, Edema - Respiratory Respiratory: reports: SOB at rest (occasionally), SOB with exertion. denies: Cough, Wheezing - Gastrointestinal Gastrointestinal: reports: Abdominal pain (escalating to day with severity; reports hard and c/o left side), Constipation (reports ongoing constipation since finishe AB/ has passed some "hard pellets" oozing some soft stool today; but no good BM; using prune juice daily now without results; patient inc of stool at baseline), Nausea (several days), Vomiting (yesterday; did not witness do can't tell me content), Bloating, Poor appetite, Early satiety - Genitourinary Genitourinary: reports: Incontinence - Musculoskeletal Musculoskeletal: reports: Stiffness, Muscle weakness, Joint pain (right hand severe and with contracture), Other (bed bound) - Integumentary Integumentary: reports: Rash (right pannus; backside improved) - Neurological Neurological: reports: General weakness, Memory problems (STM), Slurred speech (voice weak) - Psychiatric Psychiatric: reports: Depression, Anxiety - Hematologic/Lymphatic Hematologic/Lymphatic: reports: Recurrent infections (recently treated for CAP with improvement of respiratory symptoms; though easily winded cough and wheezing has resolved) - All Other Systems All Other Systems: reports: Reviewed and negative Physical Exam - Vital Signs Temperature: 96.8 C Pulse Rate: 82 Respiratory Rate: 20 O2 Saturation: 97 (on 2 liters) Blood Pressure: 128/68 - Physical Exam General Appearance: positive: Moderate distress, Anxious Eyes Bilateral: positive: Normal inspection ENT: positive: Dry mucous membranes Neck: positive: No JVD, Trachea midline Cardiovascular: positive: Regular rate & rhythm Respiratory: positive: Diminished throughout. negative: Wheezes, Rales, Rhonchi Abdomen: positive: Abnml bowel sounds, Tenderness, Guarding, Obese Skin: positive: Pallor, Rash (right pannus fold), Pressure wound (slightly pink but improved coccyx/buttocks area) Extremities: positive: No pedal edema, Other (right hand with contracture/painful to touch or manipulation) Neurologic/Psychiatric: positive: Disoriented to person, Disoriented to place, Disoriented to time, Weakness, Depressed mood/affect, Flat affect, Other (voice weak) Palliative Care - POLST Patient has POLST: Yes POLST Status: DNR, Comfort Measures Pain: Pain worsening, Location (back/thoracic area; abdomen acute pain; Had trialed acetaminophen with very little effect. Did use morphine with good relief prior to arrival, tolerated it without any side effects.) Tiredness/Fatigue: Severe (7-10) Drowsiness/Sedation: Moderate (4-6) Nausea: Mild (1-3) Depression: Moderate (4-6) Anxiety: Moderate (4-6) Dyspnea: Moderate (4-6) Anorexia: Moderate (4-6) Sleep: Sleeps well Constipation: Yes, Unmanaged Feelings of wellbeing/Perceived Quality of Life: Poor, Worsening Performance Status: Patient is quite weak, is currently bedbound. Able to assist less with bed mobility, totally dependent for all ADLs including bathing, toileting, is able to self feed but needs meal prep. - Palliative Care Discussion: Discussed with daughter regarding recommendations to move forward with hospice, particularly given the acute recent situation and need for assistance. She remains quite hesitant, patient is quite withdrawn and introvert, worried about the increased intrusion both for patient in the household. Does feel they were managing fairly well at baseline. They do recognize her ongoing decline, goals remain to focus only on comfort no hospitalization. Family does recognize patient's frailty. Jamilah will continue to evaluate this, and contact me when ready for transition. Impression and Recommendations - Palliative Care Impression: This is an 82-year-old woman with known advanced COPD, recently treated community-acquired pneumonia, fluctuating mental status, and ongoing decline. Today she presents acutely with constipation/impaction, and abdominal pain. Goals remain to focus on comfort, recommendation to transition to hospice. Recommendations/Counseling Done: 1. Constipation/impaction. Fleets followed with tap water enema given for large amount of soft stool, mixed with hard pellets. Patient with some discomfort, but did tolerate fairly well. Counseling provided regarding bowel program, instructed to initiate MiraLAX 17 g daily and 4 ounces of water, titrate down to half cap if too loose or oozing, up to full If no BM that day. Instructed also to obtain bicipital suppositories as patient does have bowel incontinence and poor rectal tone. Instructed to for further instructions if patient continued with difficulties. Reviewed expected oozing and cramping through rest of day. Daughter verbalized understanding and will obtain medications. 2. Community-acquired pneumonia. Patient without further signs of symptoms with cough, breath sounds improved, though remains quite dyspneic with any kind of activity. O2 sats are improved. They have obtained for large tanks in case of power outage. 3. Abdominal pain attributed to constipation. Patient did tolerate and respond well to morphine. Counseling provided regarding focus on comfort, may continue as needed every 2 hours as needed, recognizing may add constipation, thus need for aggressive bowel program. Patient more comfortable at end of visit, daughter though does verbalize understanding may continue to need intermittent dosing given patient's bedbound status and underlying discomfort with osteoarthritis. 4. Advanced care planning. Reviewed goals which include focusing on comfort, no hospitalization, and allowing for peaceful transition. Patient continues to decline, patient does have a SHILPA ST in place with DNA R and comfort measures only. Primary D POA is Jamilah [phone]. Did recommend considering hospice support given patient's continued symptoms and ongoing complications. Terminal diagnosis would be COPD, recently treated for pneumonia, patient is bedbound status, with additional diagnoses of dementia, CKD stage III, pulmonary hypertension, and hypertension. Time Spent: 45 minutes with greater than 50% spent in counseling regarding management of symptoms, anticipatory guidance, counseling on bowel and pain management.
== END 2018-09-17 11:01 | disposition home or self-care (01) ==
LOC: PC 11:00
PROVIDERS: ATTEND Nurse Practitioner Adult Health
DX: Z51.5 Encounter for palliative care (principal); K59.00 Constipation, unspecified; J44.9 Chronic obstructive pulmonary disease, unspecified; F03.90 Unspecified dementia, unspecified severity, without behavioral disturbance, psychotic disturbance, mood disturbance, and anxiety; M19.90 Unspecified osteoarthritis, unspecified site; I12.9 Hypertensive chronic kidney disease with stage 1 through stage 4 chronic kidney disease, or unspecified chronic kidney disease; N18.3 Chronic kidney disease, stage 3 (moderate); I27.20 Pulmonary hypertension, unspecified; Z99.81 Dependence on supplemental oxygen; Z87.01 Personal history of pneumonia (recurrent); Z74.01 Bed confinement status; Z66 Do not resuscitate
CPT/HCPCS: 99349